=== PATIENT | female | born 1985 | race Caucasian/White ===

== ENCOUNTER 2024-11-15 19:13 | Outpatient (CLI) | payer OTHER, SELFPAY | END 2024-11-15 19:14 | disposition home or self-care (01) | LOC: NFLDREF 11-16 11:47 | PROVIDERS: PCP Nurse Practitioner; Visit Provider Nurse Practitioner | DX: R30.0 Dysuria (principal); N30.01 Acute cystitis with hematuria | CPT/HCPCS: 87086; 87186 ==

== ENCOUNTER 2024-12-20 22:23 | Emergency (ER) | payer MEDICAID, SELFPAY ==
--- OUTSIDE RECORDS SUMMARY | 2024-12-20 22:25 | XMS_ITS | Encounter Summary ---
[facility] Organization [facility] Address [address], [place] [address] Care Team Providers Care Contractor General Building Name Role Phone Javed Fishman MD Primary Care Provider +1- [phone] Encounter Details Date Type Department Care Team (Late st Contact Info) Description 12/10/2024 Notes/Orders Specialty Center 3931 General Surgery [address] [facility] [address] [place], [place] [address] Mj Min MD [address] [place] [address] Lymphadenopathy (Primary Dx) Social History Tobacco Use Types Packs/Day Years Used Date Smoking Tobacco: Every Day Cigarettes 1 16 Smokeless Tobacco: Never Comments:Smoking History Pac ks/day: Alcohol Use Standard Drinks/Week Comments No 0 (1 standard drink = 0.6 oz pure alcohol) Alcoholic Drinks/day: Amount:1-2 drinks; Freq:2-4/Month ; PHQ-2 Answer Date Recorded PHQ-2 Score 6 09/24/2023 Depression Answer Date Recor ded Last EPDS Total Score 17 06/03/2020 Last EPDS Self Harm Result 0-->never 06/03 Sex and Gender Information Value Date Recorded Sex Assigned at Female 07/24/2021 8:12 PM CDT Gender Identity Female 07/24/2021 8:12 PM CDT Sexual Orientation Straight 08/15/2021 5: 24 PM CDT documented as of this encounter Plan of Treatment Scheduled Orders Name Type Priority Associated Diagnoses Orde r Schedule Test (Urine) Lab Routine Lymphadenopathy Expected: 12/10/2024, Expires: 03/10/2025 documented as of this encounter Visit Diagnoses Diagnosis Lymphadenopathy- Primary Enlargement of lymph nodes documented in this encounter Care Teams Contractor General Building Relationship Specialty [place] [address] [place] [address] PCP - General Family Practice 05/02/23 documented as of this encounter
--- OUTSIDE RECORDS SUMMARY | 2024-12-20 22:25 | XMS_ITS | Encounter Summary ---
Author Organization [facility] Address [address], [place] [address] Care Team Providers Care Freedom Of Information Officer Name Role Phone Javed Fishman MD Primary Care Provider +1- [phone] Reason for Visit * Reason Comments RESULTS, TEST Encounter Details Date Type Department Care Team (Late st Contact Info) Description 12/13/2024 Telephone Specialty Center 3931 General Surgery [address] [facility] [address] [place], [place] [address] Lisseth Robins, RN RESULTS, TEST Social History Tobacco Use Types Packs/Day Years [...] PM CDT documented as of this encounter Nursing Notes * Lisseth Robins, RN - 12/13/2024 3:35 PM CST Patient calling back to discuss ultrasound results. States received a VM that Dr Min would tryto call her back. Please call @ [phone] MAKER documented in this encounter Plan of Treatment Not on file documented as of this encounter Visit Diagnoses Not on filedocumented in this encounter Care Teams Freedom Of Information Officer Relationship Specialty [place] [address] [place] [address] PCP - General Family Practice 05/02/23 documented as of this encounter
--- OUTSIDE RECORDS SUMMARY | 2024-12-20 22:25 | XMS_ITS | Encounter Summary ---
Author Organization [facility] Address [address] [address] Care Team Providers Care External Grinder Tender Name Role Phone Javed Fishman MD Primary Care Provider +1- [phone] Reason for Referral * Procedure/Equipment (Routine) - Incomplete Specialty Diagnoses / Procedures Referred By Contac t Referred To Contact Diagnoses Rectal bleeding Procedures CT Abd Pelvis W IV Cont Mj Min MD [address] [place] [address] Referral ID Status Reason Start Date Expiration Date V isits Requested Visits Authorized [id number] Incomplete 12/14/2024 03/15/2026 1 1 L ENGINEERING TECHNICIAN Encounter Details Date Type Department Care Team (Late st Contact Info) Description 12/14/2024 Notes/Orders Specialty Center 3931 General Surgery [address] [place] [address] [address] [place], [place] [address] Mj Min MD [address] [place], [place] [id number] Rectal bleeding (Primary Dx) Social History Tobacco Use Types [...] as of this encounter Plan of Treatment Not on file documented as of this encounter Results * Carcinoembryonic Antigen (CEA Blood) (12/15/2024 3:38 PM CIVIL ENGINEERING TECHNICIAN) Carcinoembryonic Antigen 2.3 0.0 - 5.0 ng/mL 12/15/2024 9:30 PM CIVIL ENGINEERING TECHNICIAN [facility] Blood Venipuncture / Unknown 12/15/2024 3:38 PM CIVIL ENGINEERING TECHNICIAN 12/15/2024 4:10 PM CIVIL ENGINEERING TECHNICIAN Narrative [facility] - 12/15/2024 9:30 PM CIVIL ENGINEERING TECHNICIAN [employer] CEA Chemiluminescent immunoassay is used. Results obtained with different test methods or kits cannot be used interchangeably. Mj Min MD LAB_1 [facility] [address] [place], [place] [address] [[email or web address]] * Cancer Antigen-GI (CA19-9) (12/15/2024 3:38 PM CIVIL ENGINEERING TECHNICIAN) Carbohydrate Ag 19-9 22 0 - 35 U/mL 12/16/2024 10:28 AM CIVIL ENGINEERING TECHNICIAN [facility] Blood Venipuncture / Unknown 12/15/2024 3:38 PM CIVIL ENGINEERING TECHNICIAN 12/15/2024 4:10 PM CIVIL ENGINEERING TECHNICIAN Narrative [facility] - 12/16/2024 10:28 AM CIVIL ENGINEERING TECHNICIAN This assay has been shown to have interference from high levels of biotin. Specimens from patients who are undergoing biotin therapy and/or ingesting biotin supplements may contain high levels of biotin which may cause falsely low results. Interpret the results in light of the total clinical presentation of the patient. The [employer] CA199 Chemiluminescent immunoassay is used. Results obtained with different methods or kits cannot be used interchangeably Mj Min MD LAB_1 [facility] [address] * CA 125 (Carbohydrate Antigen 125) (12/15/2024 3:38 PM CIVIL ENGINEERING TECHNICIAN) Cancer Antigen 125 24 0 - 35 U/mL 12/15/2024 9:31 PM CIVIL ENGINEERING TECHNICIAN [facility] Blood Venipuncture / Unknown 12/15/2024 3:38 PM CIVIL ENGINEERING TECHNICIAN 12/15/2024 4:10 PM CIVIL ENGINEERING TECHNICIAN Narrative [facility] - 12/15/2024 9:31 PM CIVIL ENGINEERING TECHNICIAN [employer] CA125 Chemiluminescent assay is used. Results obtained with different test methods or kits cannot be used interchangeably. Mj Min MD LAB_1 [facility] [address] * CT Abd Pelvis W IV Cont (12/14/2024 7:08 PM CIVIL ENGINEERING TECHNICIAN) Anatomical Region Laterality Modality Abdomen, Pelvis Computed Tomogra phy 12/14/2024 7:07 PM CIVIL ENGINEERING TECHNICIAN Impressions 12/15/2024 8:07 AM CIVIL ENGINEERING TECHNICIAN 1. Bilateral necrotic inguinal adenopathy, right greater than left. Findings are suspicious for metastatic disease. 2. Possible polypoid enhancing lesion of the anterior rectum. Recommend correlation with physical exam/sigmoidoscopy. Perirectal nodularity is concerning for lymphadenopathy. 3. Solitary right kidney noted. Narrative 12/15/2024 8:07 AM CIVIL ENGINEERING TECHNICIAN COMPARISON: None TECHNIQUE: Images were obtained through the abdomen and pelvis following the administration of 75 mL IOHEXOL 350 MG/ML IV SOLN IV contrast. FINDINGS: LOWER CHEST: Unremarkable. LIVER: Unremarkable. GALLBLADDER AND BILIARY TREE: Unremarkable. No intrahepatic or extrahepatic biliary ductal dilation. PANCREAS: Unremarkable. SPLEEN: Unremarkable. ADRENALS: Unremarkable. KIDNEYS, URETERS, AND BLADDER: Solitary right kidney. No hydronephrosis, nephrolithiasis or parenchymal abnormality evident. VESSELS: Unremarkable BOWEL: Unremarkable. No inflammatory changes or obstruction. Moderate stool burden throughout the colon. Hyperdense/enhancing polypoid structure in the anterior rectum, series 3 image 79, measures 1.7 x 4.1 x 3.1 cm. There are enhancing perirectal nodules which may represent lymph nodes, or vessels, most notably on the right on series 3 image 77 measuring 8 mm and on the left on image 72 measuring 11 mm. REPRODUCTIVE ORGANS: Unremarkable. MESENTERY/PERITONEUM: No enlarged mesenteric lymph nodes. No ascites or free air. No focal fluid collection. RETROPERITONEUM: No adenopathy. ABDOMINAL WALL/SOFT TISSUES: Necrotic bilateral inguinal adenopathy, right greater than left. Right inguinal node measures 6.6 x 4.0 x 5.0 cm. Adjacent smaller nodes on the right. Necrotic left inguinal node measures 1.3 cm. BONES: Unremarkable. Procedure Note Tremayne Mason MD - 12/15/2024 COMPARISON: None TECHNIQUE: Images were obtained through the abdomen and pelvis followingthe administration of 75 mL IOHEXOL 350 MG/ML IV SOLN IV contrast. FINDINGS: LOWER CHEST: Unremarkable. LIVER: Unremarkable. GALLBLADDER AND BILIARY TREE: Unremarkable. No intrahepatic orextrahepatic biliary ductal dilation. PANCREAS: Unremarkable. SPLEEN: Unremarkable. ADRENALS: Unremarkable. KIDNEYS, URETERS, AND BLADDER: Solitary right kidney. No hydronephrosis,nephrolithiasis or parenchymal abnormality evident. VESSELS: Unremarkable BOWEL: Unremarkable. No inflammatory changes or obstruction. Moderatestool burden throughout the colon. Hyperdense/enhancing polypoid structurein the anterior rectum, series 3 image 79, measures 1.7 x 4.1 x 3.1 cm.There are enhancing perirectal nodules which may represent lymph nodes, orvessels, most notably on the right on series 3 image 77 measuring 8 mm andon the left on image 72 measuring 11 mm. REPRODUCTIVE ORGANS: Unremarkable. MESENTERY/PERITONEUM: No enlarged mesenteric lymph nodes. No ascites orfree air. No focal fluid collection. RETROPERITONEUM: No adenopathy. ABDOMINAL WALL/SOFT TISSUES: Necrotic bilateral inguinal adenopathy, rightgreater than left. Right inguinal node measures 6.6 x 4.0 x 5.0 cm.Adjacent smaller nodes on the right. Necrotic left inguinal node measures1.3 cm. BONES: Unremarkable. IMPRESSION 1. Bilateral necrotic inguinal adenopathy, right greater than left.Findings are suspicious for metastatic disease. 2. Possible polypoid enhancing lesion of the anterior rectum. Recommendcorrelation with physical exam/sigmoidoscopy. Perirectal nodularity isconcerning for lymphadenopathy. 3. Solitary right kidney noted. Mj Min MD RAD CT documented in this encounter Visit Diagnoses Diagnosis Rectal bleeding- Primary Hemorrhage of rectum and anus Rectal bleeding Hemorrhage of rectum and anus documented in this encounter Care Teams External Grinder Tender Relationship Specialty [place] [address] [place] [address] PCP - General Family Practice 05/02/23 documented as of this encounter
--- OUTSIDE RECORDS SUMMARY | 2024-12-20 22:25 | XMS_ITS | Encounter Summary ---
Author Organization [facility] Address [address], [place] [address] Care Team Providers Care Head Of Operation And Logistics Name Role Phone Javed Fishman MD Primary Care Provider +1- [phone] Reason for Referral * Consult/Transfer Care (Routine) - New Request Specialty Diagnoses / Procedures Referred By Contac t Referred To Contact Diagnoses Lymph node enlargement Chalino Alicia MD [address] [place] [address] Referral ID Status Reason Start Date Expiration Date V isits Requested Visits Authorized [id number] New Request 11/29/2024 02/28/2026 1 1 Scheduling Instructions Your clinician has recommended an appointment with [facility]. You can quickly make your appointment online at [facility]/schedule. You can also call [phone] for help scheduling your appointment. We suggest you call your health insurance company about your coverage and benefits for this appointment. Question Answer Appointment Urgency? Within 1 Week (Urgent) CELL BATTERY TECHNICIAN Reason for Visit * Reason Comments Lump Vaginal Pain Encounter Details Date Type Department Care Team (Late st Contact Info) Description 11/29/2024 5:00 PM FUEL CELL BATTERY TECHNICIAN Office Visit [facility] [address] [facility] [address] [place] [address] Chalino Alicia MD [address] [place] [address] Lymph node enlargement Social History Tobacco Use Types Packs/Day Years [...] PM CDT documented as of this encounter Last Filed Vital Signs Vital Sign Reading Time Taken Comments Blood Pressure 102/67 11/29/2024 4:50 PM FUEL CELL BATTERY TECHNICIAN Pulse 122 11/29/2024 4:50 PM FUEL CELL BATTERY TECHNICIAN Temperature 37.1 C (98.8 F) 11/29/2024 4:50 PM FUEL CELL BATTERY TECHNICIAN Respiratory Rate 16 11/29/2024 4:50 PM FUEL CELL BATTERY TECHNICIAN Oxygen Saturation 100% 11/29/2024 4:50 PM FUEL CELL BATTERY TECHNICIAN Inhaled Oxygen Concentration - - Weight - - Height - - Body Mass Index - - documented in this encounter Progress Notes * Chalino Alicia MD - 11/29/2024 5:00 PM CST Patient ID: Na Lei Date of : 1985 SUBJECTIVE: Na Lei is a 39 y.o.female presents to the Urgent Care for a lump in her right groin. It has been going on for little over a month. She has not have fevers. It is getting larger and more painful. She did have a UTI about a month ago. Medications: amoxicillin-clavulanate, busPIRone, cyclobenzaprine, escitalopram oxalate, and hydrOXYzine HCl Allergies: No Known Allergies OBJECTIVE: General: Appears well in no distress. Vitals: Blood pressure 102/67, pulse (!) 122, temperature 37.1 ??C (98.8 ??F), temperature source Oral, resp. rate 16, last menstrual period 11/01/2024, SpO2 100%, not currently . HEENT: Head is normocephalic and atraumatic, EOM's intact. NECK: Full range of motion is noted. HEART: RR without murmur LUNGS: CTAB MUSCULOSKELETAL: Normal appearance range of motion appeared normal. Patient ambulated without difficulties. Genital exam: Was completed with a nurse present. She had what I believe was a very large inguinal lymph node NEURO: Cranial nerves 2-12 appear grossly intact, there are no focal deficits present. SKIN: [place] warm and dry without rashes in the hands face or neck. UC Course: I am going to put her on a course of Augmentin and since it has been going on for over a month I amgoing to have her follow up with General surgery. ASSESSMENT: The encounter diagnosis was Lymph node enlargement. PLAN: New Prescriptions AMOXICILLIN-CLAVULANATE (AUGMENTIN) 875-125 MG PER TABLET Take 1 Tablet by mouth two times a day for 10 days. Follow up with primary care physician in 3 - 5 days or sooner if symptoms worsen. May return here or go to the ER if worsening or concerns. Call here if any concerns whatsoever. CELL BATTERY TECHNICIAN documented in this encounter Nursing Notes * Michelle Osborne RN - 11/29/2024 5:00 PM CST Na Lei is a 39 y.o.female presents to the Urgent Care for Lump and Vaginal Pain Symptoms began: 1 month(s) ago. Fever: absent. Other associated symptoms: vaginal lump, painful, no drainage. Did have a UTI about a month ago. Patient requests an excuse letter for work/school: No CELL BATTERY TECHNICIAN documented in this encounter Plan of Treatment Scheduled Referrals Name Type Priority Associated Diagnoses Orde r Schedule Surgery Consult-Adults Referral Routine Lymph node enlargement Ordered: 11/29/2024 documented as of this encounter Visit Diagnoses Diagnosis Lymph node enlargement Enlargement of lymph nodes documented in this encounter Care Teams Head Of Operation And Logistics Relationship Specialty [place] [address] [place] [address] PCP - General Family Practice 05/02/23 documented as of this encounter
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
--- OUTSIDE RECORDS SUMMARY | 2024-12-20 22:25 | XMS_ITS | Encounter Summary ---
Author Organization [facility] Address [address], [place] [address] Care Team Providers Care Strategic Development Manager Name Role Phone Javed Fishman MD Primary Care Provider +1- [phone] Encounter Details Date Type Department Care Team (Late st Contact Info) Description 12/09/2024 E-Visit Endoscopy at [facility] at [address] [place] [address] Mychart, [place] [address] Social History Tobacco Use Types Packs/Day Years [...] on filedocumented in this encounter Care Teams Strategic Development Manager Relationship Specialty [place] [address] [place] [address] PCP - General Family Practice 05/02/23 documented as of this encounter
--- OUTSIDE RECORDS SUMMARY | 2024-12-20 22:25 | XMS_ITS | Encounter Summary ---
Author Organization [facility] Address [address], [place] [address] Care Team Providers Care Digital Coordinator Name Role Phone Javed Fishman MD Primary Care Provider +1- [phone] Reason for Visit * Reason Comments PAP,ROUTINE * Consult/Transfer Care (Routine) - New Request Specialty Diagnoses / Procedures Referred By Contac t Referred To Contact Diagnoses History of loop electrical excision procedure (LEEP) Mj Min MD [address] [place] [address] Referral ID Status Reason Start Date Expiration Date V isits Requested Visits Authorized [id number] New Request 12/07/2024 03/08/2026 1 1 Encounter Details Date Type Department Care Team (Latest Contact Info) Description 12/14/2024 8:20 AM CRM DEVELOPER Office Visit Obstetrics & Gynecology at [address] [address] Kay Caceres, TUNGSTEN REFINER, RN [facility] [address] [place] [address] Pelvic pain in female (Primary Dx); Screening for malignant neoplasm of cervix; Special screening examination for human papillomavirus (HPV) Social History Tobacco Use Types Packs/Day Years Used Date Smoking Tobacco: Every Day Cigarettes 1 16 Smokeless Tobacco: Never Tobacco Cessation:Ready to Q uit: Not Asked; Counseling Given: Not Answered Comments:Smoking History Packs/day: Alcohol Use Standard Drinks/Week Comments No 0 [...] Sign Reading Time Taken Comments Blood Pressure 98/65 12/14/2024 8:38 AM CRM DEVELOPER Pulse 121 12/14/2024 8:38 AM CRM DEVELOPER Temperature - - Respiratory Rate - - Oxygen Saturation - - Inhaled Oxygen Concentration - - Weight 55.8 kg (123 lb) 12/14/2024 8:38 AM CRM DEVELOPER Height - - Body Mass Index 21.11 08/27/2021 6:47 PM CDT documented in this encounter Patient Instructions * Patient Instructions* Kay Caceres APRN, CNP - 12/14/2024 8:20 AM CRM DEVELOPER To schedule CT scan of abdomen/pelvis please call [phone] to schedule your appointment. Please schedule pelvic US. DEVELOPER documented in this encounter Progress Notes * Kay Caceres APRN, CNP - 12/14/2024 8:20 AM CST Chief complaint: pelvic examination with pap screening SUBJECTIVE: 39 y.o. P2012 presents for pelvic examination with pap screening. Patient's primary concern when presenting to Urgent Care on 11/29/24 was large lump in her right groin. She had US completed on 12/09/24, which revealed 5.3 x 5.3 x 4.2 cm mixed cystic and solid mass with peripheral flow. This may represent a necrotic lymph node or other cystic mass. Consider CT imaging for further evaluation. She was advised to f/u with General Surgery who ordered CT scan of abdomen/pelvis and f/u with REGISTERED NURSE AMBULATORY as she has not had REGISTERED NURSE AMBULATORY care in years. Of note, she also reports profuse rectal bleeding, fevers, headaches, nausea, abdominal pain and constipation. Patient was given bowel regimen earlier this month, which yielded bowel movements, but now has not had stools for a couple of weeks. No appetite, last meal was [facility] last week. Patient's last menstrual period was 12/06/2024 (within days). Menses are monthly. She is not sexually active at this time. She denies concerns for STI, declines screening. Last pap 10/2018 ASCUS HPV+16, s/p negative colposcopy and ECC 2018. Was advised pap in 1 year, but did not follow-up. OBJECTIVE: BP 98/65 (BP Location: Left Arm, BP Cuff Size: Small Adult/Large Pediatrics) Pulse (!) 121 Wt 123 lb (55.8 kg) LMP 12/06/2024 (Within Days) BMI 21.11 kg/m?? General: alert and oriented x 3 NAD. Appears ill Psych: normal affect Respiratory: breathing comfortably on room air Pelvic: emulsification operator present. Normal appearing external genitalia with exception of 3-4 cm tender massin her right groin. Normal appearing vagina without bleeding or discharge. Normal appearing cervix without visible lesions or masses. Pap updated. Negative CMT. Normal bimanual, without uterine tenderness or enlargement. No adnexal masses or tenderness. Rectum with large mass palpated on bimanual, unsure if this is stool burden or rectal mass. Deferred rectal examination given her reported pain. ASSESSMENT: 39 y.o. P2012 presents for pelvic examination with pap screening. PLAN: -Pelvic examination with pap screening: pap updated as she is overdue. Large mass palpated on bimanual examination. Will obtain pelvic US given pain in her pelvis. Strongly advised to schedule CT abdomen/pelvis as previously advised. Advised to proceed with EGD/colonoscopy as scheduled. Encouraged to present to lab for UPT, CMP and CBC per General Surgery. Will f/u once labs/US completed Kay Caceres APRN, CNP 12/14/2024, 9:15 AM DEVELOPER documented in this encounter Plan of Treatment Pending Results Name Type Priority Associated Diagnoses Date /Time PAP Test Lab Routine Screening for malignant neoplasm of cervix 12/14/2024 2:06 PM CRM DEVELOPER HPV Genotyping PCR (Cervical/Endocervic al ONLY) Microbiology Routine Special screening examination for human papillomavirus (HPV) 12/14/2024 2:06 PM CRM DEVELOPER documented as of this encounter Visit Diagnoses Diagnosis Pelvic pain in female- Primary Unspecified symptom associated with female genital organs Screening for malignant neoplasm of cervix Screening for malignant neoplasm of the cervix Special screening examination for human papillomavirus (HPV) documented in this encounter Care Teams Digital Coordinator Relationship Specialty [place] [address] [place] [address] PCP - General Family Practice 05/02/23 documented as of this encounter
--- OUTSIDE RECORDS SUMMARY | 2024-12-20 22:26 | XMS_ITS | Encounter Summary ---
[facility] Organization [facility] Address [address] [place] [address] Care Team Providers Care Channel Rougher Name Role Phone Javed Fishman MD Primary Care Provider +1- [phone] Encounter Details Date Type Department Care Team (Late st Contact Info) Description 12/15/2024 3:45 PM SUPERVISOR [employer]SE Lab Visit [facility] [address] [place] [address] Rectal bleeding; Lymphadenopathy Social History Tobacco Use Types Packs/Day [...] on file documented as of this encounter Procedures Procedure Name Priority Date/Time Associated Diagnosis Comments COMPREHENSIVE METABOLIC PANEL Routine 12/15/2024 3:54 PM [employer] Lymphadenopathy CANCER ANTIGEN-GI (CA 19-9) Routine 12/15/2024 3:38 PM [employer] Rectal bleeding HIV 1/2 AG/AB 4TH GEN Routine 12/15/2024 3:38 PM [employer] Rectal bleeding CA-125 (CARBOHYDRATE AG 125) STAT 12/15/2024 3:38 PM [employer] Rectal bleeding CARCINOEMBRYONIC ANTIGEN (CEA) Routine 12/15/2024 3:38 PM [employer] Rectal bleeding documented in this encounter Results * (ABNORMAL) Comp Metabolic Panel (12/15/2024 3:54 PM [employer]) Sodium 139 136 - 145 mmol/L 12/15/2024 4:49 PM [facility] Potassium 3.6 3.5 - 5.1 mmol/L 12/15/2024 4:49 PM [facility] Chloride 105 98 - 109 mmol/L 12/15/2024 4:49 PM [facility] CO2 26 20 - 29 mmol/L 12/15/2024 4:49 PM [facility] Anion Gap 8 6 - 16 mmol/L 12/15/2024 4:49 PM [facility] Calcium 8.4 8.4 - 10.4 mg/dL 12/15/2024 4:49 PM [facility] BUN 9 7 - 26 mg/dL 12/15/2024 4:49 PM [facility] Creatinine 0.56 0.55 - 1.02 mg/dL 12/15/2024 4:49 PM [facility] Alkaline Phosphatase 292(H) 40 - 150 U/L 12/15/2024 4:49 PM [facility] AST (SGOT) 53(H) 10 - 40 U/L 12/15/2024 4:49 PM [facility] ALT (SGPT) 46 0 - 55 U/L 12/15/2024 4:49 PM [facility] Bilirubin, Total 0.3 0.2 - 1.2 mg/dL 12/15/2024 4:49 PM [facility] Protein, Total 6.9 6.4 - 8.3 g/dL 12/15/2024 4:49 PM [facility] Albumin 2.1(L) 3.5 - 5.0 g/dL 12/15/2024 4:49 PM [facility] Glucose 103(H) 70 - 100 mg/dL 12/15/2024 4:49 PM [facility] Comment:The given reference range is for the fasting state. Non-fasting reference range for glucose is 70 - 180 mg/dL. GFR, Estimated >60 >60 mL/min/1.7 3m2 12/15/2024 4:49 PM [facility] Hours Fasting 0.1 8 - 12 Hours 12/15/2024 4:49 PM [facility] Comment:Lab unable to obtain patient's fasting status at time of specimen collection. Blood Venipuncture / Unknown 12/15/2024 3:54 PM [employer] 12/15/2024 3:54 PM [employer] Mj Min MD LAB_1 Performing Organization Address City/State/[facility] Co de Phone Number [facility] [address] [place] [address] * HIV 1/2 Ag/Ab 4th Generation (12/15/2024 3:38 PM [employer]) HIV 1/2 Antigen/Antib michele (4th generation) Negative (Non Reactive) Negative (Non Reactive) 12/15/2024 8:50 PM [employer] [facility] Comment:HIV-1 p24 Antigen an d HIV-1/HIV-2 Antibody not detected Blood Venipuncture / Unknown 12/15/2024 3:38 PM [employer] 12/15/2024 4:10 PM [employer] Mj Min MD LAB_1 Performing Organization Address [facility] de Phone Number [facility] [address] * Carcinoembryonic Antigen (CEA Blood) (12/15/2024 3:38 PM [employer]) Carcinoembryonic Antigen 2.3 0.0 - 5.0 ng/mL 12/15/2024 9:30 PM [employer] [facility] Blood Venipuncture / Unknown 12/15/2024 3:38 PM [employer] 12/15/2024 4:10 PM [employer] [facility] - 12/15/2024 9:30 PM [employer] CEA Chemiluminescent immunoassay is used. Results obtained with different test methods or kits cannot be used interchangeably. Mj Min MD LAB_1 Performing Organization Address [facility] Phone Number [facility] [address] * Cancer Antigen-GI (CA19-9) (12/15/2024 3:38 PM [employer]) Carbohydrate Ag 19-9 22 0 - 35 U/mL 12/16/2024 10:28 AM [employer] [facility] Blood Venipuncture / Unknown 12/15/2024 3:38 PM [employer] 12/15/2024 4:10 PM [employer] [facility] - 12/16/2024 10:28 AM [employer] This assay has been shown to have interference from high levels of biotin. Specimens from patients who are undergoing biotin therapy and/or ingesting biotin supplements may contain high levels of biotin which may cause falsely low results. Interpret the results in light of the total clinical presentation of the patient. The [employer] CA199 Chemiluminescent immunoassay is used. Results obtained with different methods or kits cannot be used interchangeably Mj iMn MD LAB_1 Performing Organization Address [facility] Co de Phone Number [facility] [address] * CA 125 (Carbohydrate Antigen 125) (12/15/2024 3:38 PM [employer]) Cancer Antigen 125 24 0 - 35 U/mL 12/15/2024 9:31 PM [employer] [facility] Blood Venipuncture / Unknown 12/15/2024 3:38 PM [employer] 12/15/2024 4:10 PM [employer] Narrative [facility] - 12/15/2024 9:31 PM [employer] CA125 Chemiluminescent assay is used. Results obtained with different test methods or kits cannot be used interchangeably. Mj Min MD LAB_1 [facility] [address] [place], [place] [address] documented in this encounter Visit Diagnoses Diagnosis Rectal bleeding Hemorrhage of rectum and anus Lymphadenopathy Enlargement of lymph nodes documented in this encounter Care Teams Channel Rougher Relationship Specialty [place] [address] [place] [address] PCP - General Family Practice 05/02/23 documented as of this encounter
--- OUTSIDE RECORDS SUMMARY | 2024-12-20 22:26 | XMS_ITS | Encounter Summary ---
Author Organization [facility] Address [address], [place] [address] Care Team Providers Care Operator Coating Furnace Name Role Phone Javed Fishman MD Primary Care Provider +1- [phone] Reason for Visit * Reason Comments Forms/Letter Entered automaticall y based on patient selection in [facility]. Encounter Details Date Type Department Care Team (Late st Contact Info) Description 12/14/2024 3:50 PM COMMUNICATION CENTER OPERATOR [facility] [address] General Surgery [address] [facility] [address] [place] [address] Mj Min MD [address] [place], [place] [address] Chief Comp: Forms/Letter Social History Tobacco Use Types Packs/Day Years [...] on filedocumented in this encounter Care Teams Operator Coating Furnace Relationship Specialty [place] [address] [place] [address] PCP - General Family Practice 05/02/23 documented as of this encounter
--- OUTSIDE RECORDS SUMMARY | 2024-12-20 22:26 | XMS_ITS | Encounter Summary ---
Author Organization [facility] Address [address], [place] [address] Care Team Providers Care Transmission And Protection Engineer Name Role Phone Javed Fishman MD Primary Care Provider +1- [phone] Reason for Referral * Procedure/Equipment (Routine) - Incomplete Specialty Diagnoses / Procedures Referred By Contac t Referred To Contact Diagnoses Lymphadenopathy Procedures US Bx Lymph Node Inguin Rt US Bx Lymph Node IR Bx Lymph Node Mj Min MD [address] [place] [address] Referral ID Status Reason Start Date Expiration Date V isits Requested Visits Authorized [id number] Incomplete 12/15/2024 03/16/2026 1 1 [employer]IALS INTERN Encounter Details Date Type Department Care Team (Late st Contact Info) Description 12/15/2024 Notes/Orders [facility] Surgeon Non-Employed [address] [place] [address] Mj Min MD [address] [place], [place] [address] Lymphadenopathy (Primary Dx); Rectal bleeding Social History Tobacco Use Types Packs/Day Years [...] Type Priority Associated Diagnoses Orde r Schedule US Bx Lymph Node Inguin Rt Imaging New Routine Lymphadenopathy Expected: 12/15/2024 (Approximate), Expires: 12/15/2025 documented as of this encounter Visit Diagnoses Diagnosis Lymphadenopathy- Primary Enlargement of lymph nodes Rectal bleeding Hemorrhage of rectum and anus documented in this encounter Care Teams Transmission And Protection Engineer Relationship Specialty [place] [address] [place] [address] PCP - General Family Practice 05/02/23 documented as of this encounter
--- OUTSIDE RECORDS SUMMARY | 2024-12-20 22:26 | XMS_ITS | Encounter Summary ---
Author Organization [facility] Address [address], [place] [address] Care Team Providers Care Greenhouse Manager Name Role Phone Javed Fishman MD Primary Care Provider +1- [phone] Reason for Referral * Procedure/Equipment (Routine) - New Request Specialty Diagnoses / Procedures Referred By Contac t Referred To Contact Diagnoses Rectal mass Hematochezia Procedures Colonoscopy Diagnostic Librado Ferrer MD [address] [place] [address] Referral ID Status Reason Start Date Expiration Date V isits Requested Visits Authorized [id number] New Request 02/12/2025 12/15/2026 1 1 [facility] LIFE Reason for Visit * Reason Comments RESULTS, TEST CT scan, discussion regarding procedure for tomorrow Encounter Details Date Type Department Care Team (Late st Contact Info) Description 12/15/2024 Telephone Digestive Care at [facility] [address] [facility] [place] [address] Librado Ferrer MD [address] [place] [phone] RESULTS, TEST (CT scan, discussion regarding procedure for tomorrow) Social History Tobacco Use Types Packs/Day Years [...] as of this encounter Nursing Notes * Librado Ferrer MD - 12/15/2024 4:24 PM CST Brief GI Mold Filler And Drainer Note: 12/15/2024 Chart extensively reviewed, discussed case with Dr. Min who saw patient in General Surgery clinic on 12/07/24. Please see his documentation for details. CT scan reviewed, highly suspicious for locally advanced and possible metastatic rectal malignancy.Patient has had groin swelling and hematochezia for some time. I was contacted to expedited a lower endoscopic evaluation. I called Ms. Lei and explained my concerning for rectal malignancy and how important it was to obtain a tissue diagnosis. She is agreeable to a 10:40 a.m. colonoscopy tomorrow at [facility]6500. This has been confirmed with the GI endoscopy charge nurse. I described the rationale for the procedure, the time to arrive and NPO instructions. Will sent bowel prep to her pharmacy. Best case scenario, a complete colonoscopy can be attempted, but if prep is insufficient given the short time frame at least we could obtain a rapid tissue diagnosis given how distal the mass is. Groin U/S with biopsy to targeted a necrotic lymph node has been ordered by Dr. Min. This willlikely provide staging information. GI remains available. Librado Ferrer MD Department of Gastroenterology [facility] documented in this encounter Plan of Treatment Not on file documented as of this encounter Results * Colonoscopy Diagnostic (12/16/2024 10:21 AM DIRECTOR LIFE) Anatomical Region Laterality Modality Other 12/16/2024 10:2 1 AM DIRECTOR LIFE Narrative 12/16/2024 10:21 AM DIRECTOR LIFE Patient Name: Na Lei Procedure Date: 12/16/2024 10:21 AM Date of : 1985 Admit Type: Outpatient Age: 39 Gender: Female Note Status: Finalized Attending MD: Sami Shane MD, Procedure: Colonoscopy Indications: Suspected rectal cancer, Abnormal CT of the GI tract Providers: Sami Shane MD, Jazzmine Helton, RN Referring MD: Librado Ferrer Medicines: Fentanyl 125 micrograms IV, Midazolam 5 mg IV Complications: No immediate complications. Procedure: After I obtained informed consent, the scope was passed under direct vision. Throughout the procedure, the patient's blood pressure, pulse, and oxygen saturations were monitored continuously. The [id number] was introduced through the anus and advanced to the terminal ileum, with identification of the appendiceal orifice and IC valve. After I obtained informed consent, the scope was passed under direct vision. Throughout the procedure, the patient's blood pressure, pulse, and oxygen saturations were monitored continuously.The colonoscopy was performed without difficulty. The patient tolerated the procedure well. The quality of the bowel preparation was good. The terminal ileum, the ileocecal valve, the appendiceal orifice and the rectum were photographed. Findings: The digital rectal exam revealed a firm rectal mass. The perianal examination was normal. The terminal ileum appeared normal. An ulcerated partially obstructing large mass was found in the distal rectum. The mass was partially circumferential. Biopsies were taken with a cold forceps for histology. No additional abnormalities were found on retroflexion. The exam was otherwise without abnormality. Moderate Sedation: Moderate (conscious) sedation was administered by the nurse and supervised by the endoscopist. The patient's oxygen saturation, heart rate, blood pressure and response to care were monitored. Total physician intraservice time was 30 minutes. This time is the duration from the initial medication administration until the bisque finisher assists with initial maneuvers (biopsy / polypectomy / etc.), or if no maneuvers are performed, until the endoscopist leaves the room. Impression: - The examined portion of the ileum was normal. - Likely malignant partially obstructing tumor in the distal rectum. Biopsied. - The examination was otherwise normal. Recommendation: - Await pathology results. - Refer to a colo-rectal surgeon at the next available appointment. - Proceed with CT chest/abdomen/pelvis with IV contrast for staging purposes. - First degree relatives (siblings, children) should have an index screening colonoscopy at age 28 and repeated every 5 years thereafter. - Resume previous diet today. - Continue present medications. - Thanks for the kind referral. Procedure Code(s): --- Professional --- 81046, Colonoscopy, flexible; with biopsy, single or multiple G0500, Moderate sedation services provided by the same physician or other qualified health adult live in caregiver performing a gastrointestinal endoscopic service that sedation supports, requiring the presence of an independent trained observer to assist in the monitoring of the patient's level of consciousness and physiological status; initial 15 minutes of intra-service time; patient age 5 years or older (additional time may be reported with 25184, as appropriate) [address], Moderate sedation; each additional 15 minutes intraservice time Diagnosis Code(s): --- Professional --- K62.89, Other specified diseases of anus and rectum D49.0, Neoplasm of unspecified behavior of digestive system K56.690, Other partial intestinal obstruction R93.3, Abnormal findings on diagnostic imaging of other parts of digestive tract CPT copyright 2022 [employer]. All rights reserved. The codes documented in this report are preliminary and upon top edge beveler review may be revised to meet current compliance requirements. Sami Shane MD 12/16/2024 11:43:03 AM Number of Addenda: 0 Note Initiated On: 12/16/2024 10:21 AM Endoscopy Report Procedure Note Sami Shane MD - 12/16/2024 Patient Name: Na Lei Procedure Date: 12/16/2024 10:21 AM Date of : 1985 Admit Type: Outpatient Age: 39 Gender: Female Note Status: Finalized Attending MD: Sami Shane MD, Procedure: Colonoscopy Indications: Suspected rectal cancer, Abnormal CT of the GI tract Providers: Sami Shane MD, Jazzmine Helton RN Referring MD: Librado Ferrer Medicines: Fentanyl 125 micrograms IV, Midazolam 5 mg IV Complications: No immediate complications. Procedure: After I obtained informed consent, the scope was passed under direct vision. Throughout the procedure, the patient's blood pressure, pulse, and oxygen saturations were monitored continuously. The [id number] was introduced through the anus and advanced to the terminal ileum, with identification of the appendiceal orifice and IC valve. After I obtained informed consent, the scope was passed under direct vision. Throughout the procedure, the patient's blood pressure, pulse, and oxygen saturations were monitored continuously.The colonoscopy was performed without difficulty. The patient tolerated the procedure well. The quality of the bowel preparation was good. The terminal ileum, the ileocecal valve, the appendiceal orifice and the rectum were photographed. Findings: The digital rectal exam revealed a firm rectal mass. The perianal examination was normal. The terminal ileum appeared normal. An ulcerated partially obstructing large mass was found in the distal rectum. The mass was partially circumferential. Biopsies were taken with a cold forceps for histology. No additional abnormalities were found on retroflexion. The exam was otherwise without abnormality. Moderate Sedation: Moderate (conscious) sedation was administered by the nurse and supervised by the endoscopist. The patient's oxygen saturation, heart rate, blood pressure and response to care were monitored. Total physician intraservice time was 30 minutes. This time is the duration from the initial medication administration until the bisque finisher assists with initial maneuvers (biopsy / polypectomy / etc.), or if no maneuvers are performed, until the endoscopist leaves the room. Impression: - The examined portion of the ileum was normal. - Likely malignant partially obstructing tumor in the distal rectum. Biopsied. - The examination was otherwise normal. Recommendation: - Await pathology results. - Refer to a colo-rectal surgeon at the next available appointment. - Proceed with CT chest/abdomen/pelvis with IV contrast for staging purposes. - First degree relatives (siblings, children) should have an index screening colonoscopy at age 28 and repeated every 5 years thereafter. - Resume previous diet today. - Continue present medications. - Thanks for the kind referral. Procedure Code(s): --- Professional --- 82602, Colonoscopy, flexible; with biopsy, single or multiple G0500, Moderate sedation services provided by the same physician or other qualified health adult live in caregiver performing a gastrointestinal endoscopic service that sedation supports, requiring the presence of an independent trained observer to assist in the monitoring of the patient's level of consciousness and physiological status; initial 15 minutes of intra-service time; patient age 5 years or older (additional time may be reported with 56911, as appropriate) [address], Moderate sedation; each additional 15 minutes intraservice time Diagnosis Code(s): --- Professional --- K62.89, Other specified diseases of anus and rectum D49.0, Neoplasm of unspecified behavior of digestive system K56.690, Other partial intestinal obstruction R93.3, Abnormal findings on diagnostic imaging of other parts of digestive tract CPT copyright 2022 [employer]. All rights reserved. The codes documented in this report are preliminary and upon top edge beveler review may be revised to meet current compliance requirements. Sami Shane MD 12/16/2024 11:43:03 AM Number of Addenda: 0 Note Initiated On: 12/16/2024 10:21 AM Endoscopy Report Librado Ferrer MD ET GI PROCEDURE KEESHA RUIZ documented in this encounter Visit Diagnoses Diagnosis Rectal mass- Primary Other symptoms involving digestive system Hematochezia Blood in stool Rectal bleeding- Primary Hemorrhage of rectum and anus Rectal mass Other symptoms involving digestive system Hematochezia Blood in stool documented in this encounter Care Teams Greenhouse Manager Relationship Specialty [place] [address] [place] [address] PCP - General Family Practice 05/02/23 documented as of this encounter
--- OUTSIDE RECORDS SUMMARY | 2024-12-20 22:26 | XMS_ITS | Encounter Summary ---
Author Organization [facility] Address [address], [place] [address] Care Team Providers Care Global Ceo Name Role Phone Javed Fishman MD Primary Care Provider +1- [phone] Reason for Referral * Consult/Transfer Care (Routine) - New Request Specialty Diagnoses / Procedures Referred By Contac t Referred To Contact Diagnoses Rectal cancer ([facility]C) Sami Shane MD [address] [place] [address] Referral ID Status Reason Start Date Expiration Date V isits Requested Visits Authorized [id number] New Request 12/16/2024 03/17/2026 1 1 Scheduling Instructions Your clinician has recommended an appointment with [facility]. You can quickly make your appointment online at [employer]/schedule. You can also call [phone] for help scheduling your appointment. We suggest you call your health insurance company about your coverage and benefits for this appointment. Question Answer Appointment Urgency? Non-Urgent Reason for visit? New diagnosis of rectal cancer X ADMIN * Procedure/Equipment (Routine) - Incomplete Specialty Diagnoses / Procedures Referred By Renan harvey Referred To Contact Diagnoses Rectal cancer (HRC) Procedures CT Chest Abd Pelvis W IV Cont Sami Shane MD [facility] [place] [address] Referral ID Status Reason Start Date Expiration Date V isits Requested Visits Authorized [id number] Incomplete 12/16/2024 03/17/2026 1 1 X ADMIN Encounter Details Date Type Department Care Team (Late st Contact Info) Description 12/15/2024 E-Visit Digestive Care at [facility] at [address] [place] [address] Librado Ferrer MD [address] [place] [phone] Dx: Rectal cancer (HRC) (Primary Dx) Social History Tobacco Use Types [...] as of this encounter Nursing Notes * Sami Shane MD - 12/16/2024 11:39 AM CST Referral due to new diagnosis of rectal cancer. X ADMIN documented in this encounter Plan of Treatment Scheduled Orders Name Type Priority Associated Diagnoses Orde r Schedule CT Chest Abd Pelvis W IV Cont Imaging New Routine Rectal cancer (HRC) Expected: 12/16/2024 (Approximate), Expires: 12/16/2025 Scheduled Referrals Name Type Priority Associated Diagnoses Orde r Schedule Colorectal Surgery Consult-Adults Referral Routine Rectal cancer (HRC) Ordered: 12/16/2024 documented as of this encounter Visit Diagnoses Diagnosis Rectal cancer (HRC)- Primary Malignant neoplasm of rectum documented in this encounter Care Teams Global Ceo Relationship Specialty [place] [address] [place] [address] PCP - General Family Practice 05/02/23 documented as of this encounter
--- OUTSIDE RECORDS SUMMARY | 2024-12-20 22:26 | XMS_ITS | Encounter Summary ---
Author Organization [facility] Address [address], [place] [address] Care Team Providers Care Manager Clinical Informatics Name Role Phone Javed Fishman MD Primary Care Provider +1- [phone] Reason for Visit * Procedure/Equipment (Routine) - Incomplete Specialty Diagnoses / Procedures Referred By Contac t Referred To Contact Diagnoses Pelvic pain in female Procedures US Pelvic Complete WO EV US Pelvic Complete W EV OBGYN Pelvic/Cnc Maintenance Mechanic Ultrasound Kay Caceres, MAGNETIC TAPE WINDER, SWIMMING POOL SERVICE TECHNICIAN [address] [place] [address] Referral ID Status Reason Start Date Expiration Date V isits Requested Visits Authorized [id number] Incomplete 12/14/2024 03/15/2026 1 1 Encounter Details Date Type Department Care Team (Latest Contact Info) Description 12/15/2024 3:00 PM DIVERSIONAL THERAPIST'S ASSISTANT Ancillary Procedure [facility] [address] Ultrasound [address] [place] [phone] Kay Caceres, MAGNETIC TAPE WINDER, SWIMMING POOL SERVICE TECHNICIAN [address] [place] [address] Pelvic pain in female Social History Tobacco Use Types Packs/Day Years [...] Procedure Name Priority Date/Time Associated Diagnosis Comments US PELVIC COMPLETE WO EV Routine 12/15/2024 3:38 PM DIVERSIONAL THERAPIST'S ASSISTANT Pelvic pain in female documented in this encounter Results * US Pelvic Complete WO EV (12/15/2024 3:38 PM DIVERSIONAL THERAPIST'S ASSISTANT) Anatomical Region Laterality Modality Pelvis Ultrasound 12/15/2024 3:00 PM DIVERSIONAL THERAPIST'S ASSISTANT Impressions 12/15/2024 3:51 PM DIVERSIONAL THERAPIST'S ASSISTANT Mass posterior to the vagina may correspond to what appears to be a mass in the anterior wall of the rectum on CT. Narrative 12/15/2024 3:51 PM DIVERSIONAL THERAPIST'S ASSISTANT COMPARISON: None TECHNIQUE: Transabdominal imaging was performed. FINDINGS: Uterus: Measures 5.1 x 3.1 x 4.2 cm. Uterine Volume: 34.8 ml. Appears unremarkable. Posterior to the vagina there is a solid appearing hypoechoic structure measuring 4.0 x 5.4 x 5.3 cm. This may correspond to the anterior wall rectal lesion seen on CT. Endometrium: Measures up to 0.3 cm in thickness. Right and left ovaries are not seen. No adnexal mass. No free fluid.. Procedure Note Burbidgkaitlin, Tremayne J, MD - 12/15/2024 COMPARISON: None TECHNIQUE: Transabdominal imaging was performed. FINDINGS: Uterus: Measures 5.1 x 3.1 x 4.2 cm. Uterine Volume: 34.8 ml. Appearsunremarkable. Posterior to the vagina there is a solid appearinghypoechoic structure measuring 4.0 x 5.4 x 5.3 cm. This may correspond tothe anterior wall rectal lesion seen on CT. Endometrium: Measures up to 0.3 cm in thickness. Right and left ovaries are not seen. No adnexal mass. No free fluid.. IMPRESSION Mass posterior to the vagina may correspond to what appears to be a massin the anterior wall of the rectum on CT. Kay Caceres MAGNETIC TAPE WINDER, SWIMMING POOL SERVICE TECHNICIAN RAD US documented in this encounter Visit Diagnoses Diagnosis Pelvic pain in female Unspecified symptom associated with female genital organs documented in this encounter Care Teams Manager Clinical Informatics Relationship Specialty [place] [address] [place] [address] PCP - General Family Practice 05/02/23 documented as of this encounter
--- OUTSIDE RECORDS SUMMARY | 2024-12-20 22:26 | XMS_ITS | Encounter Summary ---
Author Organization [facility] Address [address] [place] [address] Care Team Providers Care Roof Cement And Paint Maker Name Role Phone Javed Fishman MD Primary Care Provider +1- [phone] Reason for Visit * Reason Comments Lump Encounter Details Date Type Department Care Team (Late st Contact Info) Description 11/29/2024 Nurse Triage [facility] Medicine [id number] [place] [address]177 Javed Fishman MD [address] [place] [address] [place] [address] Lump Social History Tobacco Use Types Packs/Day Years [...] as of this encounter Nursing Notes * Carin El RN - 11/29/2024 1:59 PM CST Situation/Background (brief explanation of current symptoms/situation): Patient calling with concern of lump in inguinal area between leg and vulva. Noticed about 1 month ago, has gotten bigger sincefirst noticed. Lump looks red, hard and painful to touch, feels discomfort internally also like a pulled muscle. Denies fever, drainage. Has family hx of cancer so concerned about that. Advised per protocol, will go to today. Reviewed pertinent medical history (as relates to the call): Yes Reviewed pertinent medications (as relates to the call): Yes Reason for Disposition Swelling is painful to touch and no fever Protocols used: Skin Lump or Localized Isghujub-AKZAC-LB ER POLICE DETECTIVE documented in this encounter Plan of Treatment Not on file documented as of this encounter Visit Diagnoses Not on filedocumented in this encounter Care Teams Roof Cement And Paint Maker Relationship Specialty [place] [address] [place] [address] PCP - General Family Practice 05/02/23 documented as of this encounter
--- OUTSIDE RECORDS SUMMARY | 2024-12-20 22:26 | XMS_ITS | Encounter Summary ---
Author Organization [facility] Address [address], [place] [address] Care Team Providers Care General Magistrate Name Role Phone Javed Fishman MD Primary Care Provider +1- [phone] Encounter Details Date Type Department Care Team (Late st Contact Info) Description 12/17/2024 11:10 AM TITLE 1 TUTOR Lab Visit Specialty Center 3931 Outpatient Laboratory 3931 [place], [place] [address] Rectal bleeding Social History Tobacco Use Types [...] Procedure Name Priority Date/Time Associated Diagnosis Comments HEMOGLOBIN, BLOOD Routine 12/17/2024 10: 34 AM TITLE 1 TUTOR Rectal bleeding documented in this encounter Results * (ABNORMAL) Hemoglobin, Blood (HGB) (12/17/2024 10:34 AM TITLE 1 TUTOR) Hemoglobin 7.5(L) 12.0 - 15.5 g/dL 12/17/2024 10:51 AM TITLE 1 TUTOR [facility] Blood Venipuncture / Unknown 12/17/2024 10:34 AM TITLE 1 TUTOR 12/17/2024 10:37 AM TITLE 1 TUTOR Mikhail Nunez MD LAB_1 [facility] [address] documented in this encounter Visit Diagnoses Diagnosis Rectal bleeding Hemorrhage of rectum and anus documented in this encounter Care Teams General Magistrate Relationship Specialty [place] [address] [place] [address] PCP - General Family Practice 05/02/23 documented as of this encounter
--- OUTSIDE RECORDS SUMMARY | 2024-12-20 22:26 | XMS_ITS | Encounter Summary ---
Author Organization [facility] Address [address] [place] [address] Care Team Providers Care Caul Dresser Name Role Phone Javed Fishman MD Primary Care Provider +1- [phone] Reason for Visit * Reason Comments CHEST PAIN Encounter Details Date Type Department Care Team (Late st Contact Info) Description 12/18/2024 Nurse Triage Careline [address] [facility] [place], [place] [address] Donaldo Cooper CHEST PAIN Social History Tobacco Use Types Packs/Day Years [...] as of this encounter Nursing Notes * Rachna Carson RN - 12/18/2024 6:00 PM CST Verified patient identity: Yes Situation/Background (brief explanation of current symptoms/situation): Pt c/o chest heaviness thatshe is unable to say when it started, states that she is unable to tell if she is having shortness of breath, pain is a 5/10, pt states that she feels dizzy and lightheaded when she stands up x 1 month, had blood work done yesterday and her HgB is 7.5, new cancer diagnosis, states that the pain is constant Reviewed with patient pertinent medical history (as it related to the call): Yes Reviewed with patient pertinent medications (as they relate to call): Yes Reviewed with patient pertinent allergies (as they relate to call): N/A Reason for Disposition [1] Chest pain lasts > 5 minutes AND [2] described as crushing, pressure-like, or heavy Protocols used: Chest Alar-UAJPA-BC Plan: EMS call 911 NOW Advised patient/caller to call back CareLine if there are further questions or concerns. The CareLine is available 09/06. Pt verbalized understanding and agreed with the plan. Rachna Ayala RN Careline6:08 PM 12/18/2024 INUING EDUCATION DEAN * Donaldo Cooper - 12/18/2024 5:57 PM CST Verified patient identity using three identifiers: Yes Caller's relationship to patient: Spouse/Significant Other, Do you have a provider/clinic where you are seen for this? PN Specialty Symptoms Describe the reason for call/symptoms (include location and duration if applicable): Pt is having chest pain and SOB. Plan:Caller transferred directly to CareLine nurse. INUING EDUCATION DEAN documented in this encounter Plan of Treatment Not on file documented as of this encounter Visit Diagnoses Not on filedocumented in this encounter Care Teams Caul Dresser Relationship Specialty [place] [address] [place] [address] PCP - General Family Practice 05/02/23 documented as of this encounter
--- OUTSIDE RECORDS SUMMARY | 2024-12-20 22:26 | XMS_ITS | Encounter Summary ---
Author Organization [facility] Address [address], [place] [address] Care Team Providers Care Director Of Industrial Relations Name Role Phone Javed Fishman MD Primary Care Provider +1- [phone] Encounter Details Date Type Department Care Team (Late st Contact Info) Description 12/15/2024 Notes/Orders Specialty Center 3931 General Surgery 3931 [facility] [address] [place], [place] [id number] Mj Min MD [address] [place] [address] Rectal bleeding (Primary Dx) Social History Tobacco [...] documented as of this encounter Results * HIV 1/2 Ag/Ab 4th Generation (12/15/2024 3:38 PM INFORMATION SERVICES CONSULTANT) HIV 1/2 Antigen/Antib michele (4th generation) Negative (Non Reactive) Negative (Non Reactive) 12/15/2024 8:50 PM INFORMATION SERVICES CONSULTANT [facility] Comment:HIV-1 p24 Antigen an d HIV-1/HIV-2 Antibody not detected Blood Venipuncture / Unknown 12/15/2024 3:38 PM INFORMATION SERVICES CONSULTANT 12/15/2024 4:10 PM INFORMATION SERVICES CONSULTANT Mj Min MD LAB_1 [facility] [address] documented in this encounter Visit Diagnoses Diagnosis Rectal bleeding- Primary Hemorrhage of rectum and anus documented in this encounter Care Teams Director Of Industrial Relations Relationship Specialty [place] [address] [place] Hernandez [address] PCP - General Family Practice 05/02/23 documented as of this encounter
--- OUTSIDE RECORDS SUMMARY | 2024-12-20 22:26 | XMS_ITS | Encounter Summary ---
Author Organization [facility] Address [address], [place] [address] Care Team Providers Care Roller Die Cutting Machine Operator Name Role Phone Javed Fishman MD Primary Care Provider +1- [phone] Reason for Visit * Procedure/Equipment (Routine) - Incomplete Specialty Diagnoses / Procedures Referred By Contac t Referred To Contact Diagnoses Rectal bleeding Procedures CT Chest W IV Cont Mikhail Nunez MD [address] [facility] [address] [place] [address] Referral ID Status Reason Start Date Expiration Date V isits Requested Visits Authorized [id number] Incomplete 12/17/2024 03/18/2026 1 1 Encounter Details Date Type Department Care Team (Late st Contact Info) Description 12/17/2024 11:20 AM WOOD FURNITURE ASSEMBLER Ancillary Procedure [facility] [address] [address] Scan [address] [place] [address] Mikhail Nunez MD [address] [facility] [address] [place] [address] Rectal bleeding Social History Tobacco Use Types [...] Procedure Name Priority Date/Time Associated Diagnosis Comments CT CHEST W IV CONT STAT 12/17/2024 11 :41 AM WOOD FURNITURE ASSEMBLER Rectal bleeding documented in this encounter Results * CT Chest W IV Cont (12/17/2024 11:41 AM WOOD FURNITURE ASSEMBLER) Anatomical Region Laterality Modality Chest, Lung Computed Tomogra phy 12/17/2024 11:3 5 AM WOOD FURNITURE ASSEMBLER Impressions 12/17/2024 12:50 PM WOOD FURNITURE ASSEMBLER Unremarkable chest CT with no evidence of metastatic disease. Narrative 12/17/2024 12:50 PM WOOD FURNITURE ASSEMBLER COMPARISON: CT abdomen and pelvis 12/14/2024 TECHNIQUE: Images were obtained through the chest following the administration of 75 mL IOHEXOL 350 MG/ML IV SOLN contrast. FINDINGS: CHEST WALL AND LOWER NECK: Unremarkable. HEART AND VASCULATURE: Normal heart size. No pericardial effusion. No thoracic aortic aneurysm. MEDIASTINUM: Unremarkable esophagus. No adenopathy. LUNGS AND PLEURAL SPACE: Patent central airways. Clear lungs. No pneumothorax or pleural effusion. No suspicious pulmonary nodule. UPPER ABDOMEN: Unchanged compared with 12/14/2024. BONES: Minimal scoliosis, no acute or aggressive findings. Procedure Note Dmitriy Cortes MD - 12/17/2024 COMPARISON: CT abdomen and pelvis 12/14/2024 TECHNIQUE: Images were obtained through the chest following theadministration of 75 mL IOHEXOL 350 MG/ML IV SOLN contrast. FINDINGS: CHEST WALL AND LOWER NECK: Unremarkable. HEART AND VASCULATURE: Normal heart size. No pericardial effusion. Nothoracic aortic aneurysm. MEDIASTINUM: Unremarkable esophagus. No adenopathy. LUNGS AND PLEURAL SPACE: Patent central airways. Clear lungs. Nopneumothorax or pleural effusion. No suspicious pulmonary nodule. UPPER ABDOMEN: Unchanged compared with 12/14/2024. BONES: Minimal scoliosis, no acute or aggressive findings. IMPRESSION Unremarkable chest CT with no evidence of metastatic disease. Mikhail Nunez MD RAD CT documented in this encounter Visit Diagnoses Diagnosis Rectal bleeding Hemorrhage of rectum and anus documented in this encounter Administered Medications Inactive Administered Medications - up to 3 most recent administrations Medication Order MAR Action Action Date Dose Rate Site iohexol (OMNIPAQUE 350) 350 MG/ML injection 75 mL 75 mL, Intravenous, ONCE, On Fri12/17/24 at 1200, For 1 dose Given 12/17/2024 11:42 AM WOOD FURNITURE ASSEMBLER 75 mL sodium chloride 0.9% injection 10 mL 10 mL, Intravenous, ONCE, On Fri12/17/24 at 1200, For 1 dose Given 12/17/2024 11:42 AM WOOD FURNITURE ASSEMBLER 10 mL documented in this encounter Care Teams Roller Die Cutting Machine Operator Relationship Specialty [place] [address] [place] [address] PCP - General Family Practice 05/02/23 documented as of this encounter
--- OUTSIDE RECORDS SUMMARY | 2024-12-20 22:26 | XMS_ITS | Encounter Summary ---
Author Organization [facility] Address [address], [place] [address] Care Team Providers Care Tobacco Sorter Name Role Phone Javed Fishman MD Primary Care Provider +1- [phone] Reason for Visit * Reason Comments Pre-visit Planning Entered automaticall y based on patient selection in [employer]. Encounter Details Date Type Department Care Team (Late st Contact Info) Description 12/15/2024 5:05 PM COMBINATION MAN E-Visit Specialty Center 3931 General Surgery 3931 [facility] [address] [place], [place] [address] Mj Min MD [address] [place], [place] [address] Chief Comp: Pre-visit Planning Social History Tobacco Use Types Packs/Day Years [...] on filedocumented in this encounter Care Teams Tobacco Sorter Relationship Specialty [place] [address] [place] [address] PCP - General Family Practice 05/02/23 documented as of this encounter
--- OUTSIDE RECORDS SUMMARY | 2024-12-20 22:26 | XMS_ITS | Encounter Summary ---
[facility] Organization [facility] Address [address], [place] [address] Care Team Providers Care Business Mgr Name Role Phone Javed Fishman MD Primary Care Provider +1- [phone] Reason for Visit * Reason Comments Test Request Lab Test Needed Encounter Details Date Type Department Care Team (Late st Contact Info) Description 12/14/2024 Telephone Specialty Center 3931 General Surgery 3931 [facility] [address] [place], [place] [address] Ronit Almaguer RN Test Request; Lab Test Needed Social History Tobacco Use Types Packs/Day Years [...] as of this encounter Nursing Notes * Ronit Almaguer RN - 12/14/2024 3:21 PM CST Called patient and left message with scheduling phone number to get CT scan set up along with labs needed. RESS MAKER documented in this encounter Plan of Treatment Not on file documented as of this encounter Visit Diagnoses Not on filedocumented in this encounter Care Teams Business Mgr Relationship Specialty [place] [address] [place] [address] PCP - General Family Practice 05/02/23 documented as of this encounter
--- OUTSIDE RECORDS SUMMARY | 2024-12-20 22:26 | XMS_ITS | Encounter Summary ---
Author Organization [facility] Address [address] [place] [address] Care Team Providers Care Plug Saw Operator Name Role Phone Javed Fishman MD Primary Care Provider +1- [phone] Reason for Visit * Reason Comments GAS, PAIN Encounter Details Date Type Department Care Team (Late st Contact Info) Description 12/17/2024 Nurse Triage Careline [address], [place] [address] Unassigned, Provider [address] [place] [address] GAS, PAIN Social History Tobacco Use Types Packs/Day [...] of this encounter Nursing Notes * Rachna Carson, RN - 12/17/2024 8:13 PM CST Verified patient identity: Yes Situation/Background (brief explanation of current symptoms/situation): Pt c/o gas following eatingthat started yesterday, pt states that she has pain that is awful if she eats, pt states pt states that she has not had BM since colonoscopy yesterday, states that she is feeling feverish, has not taken , pt had blood work this morning, states that she missed a call at 1700 today from surgeon, ptHgB is 7.5 Reviewed with patient pertinent medical history (as it related to the call): Yes Reviewed with patient pertinent medications (as they relate to call): Yes Reviewed with patient pertinent allergies (as they relate to call): N/A Reason for Disposition Patient sounds very sick or weak to the triager Protocols used: Abdominal Pain - Fvremw-[id number]-JT Plan: Clinician consult Clinician name: Paged at [phone] Page returned at 2052 Assessment shared, orders are: 1) Go to ER for evaluation, could have a perforation Telephone Orders Read Back to clinician. 2058 - Returned call to pt, LMTCB, called again and LMTCB Rachna Ayala RN Careline9:06 PM 12/17/2024 RTRAIN CALIBRATION ENGINEER * Roxy De Oliveira - 12/17/2024 6:23 PM CST Verified patient identity using three identifiers: Yes Caller's relationship to patient: Self, Do you have a provider/clinic where you are seen for this? PN Specialty Symptoms Describe the reason for call/symptoms (include location and duration if applicable): Pt had a colonoscopy yesterday and was told that she may have colon cancer. Pt has been having constipation today.Pt also states that she missed a call from the colorectal surgeon's office, but she is not certain what the call was regarding. Plan:The current callback time to speak with a nurse is 1.5 hr. If your symptoms change or worsen, or if you have not received a call back in the stated timeframe, please call us back RTRAIN CALIBRATION ENGINEER documented in this encounter Plan of Treatment Not on file documented as of this encounter Visit Diagnoses Not on filedocumented in this encounter Care Teams Plug Saw Operator Relationship Specialty [place] [address] [place] [address] PCP - General Family Practice 05/02/23 documented as of this encounter
--- OUTSIDE RECORDS SUMMARY | 2024-12-20 22:26 | XMS_ITS | Encounter Summary ---
Author Organization [facility] Address [address], [place] [address] Care Team Providers Care Gis Analyst Developer Name Role Phone Javed Fishman MD Primary Care Provider +1- [phone] Reason for Visit * Reason Comments Appt. Scheduled Encounter Details Date Type Department Care Team (Late st Contact Info) Description 12/16/2024 Telephone Specialty Center 3931 Colorectal Surgery [address] [facility] [address] [place], [place] [address] Vikki Rosario, RN Appt. Scheduled Social History Tobacco Use Types Packs/Day Years [...] as of this encounter Nursing Notes * Vikki Rosario RN - 12/16/2024 4:48 PM CST LVM for patient that an appt is scheduled for tomorrow at 9:[address] Nunez. Offered to reschedule to next week if she prefers to be seen after colonoscopy pathology is back. She will need a chestCT and possibly additional imaging depending on pathology results. Callback number provided. RIOR WIRER documented in this encounter Plan of Treatment Not on file documented as of this encounter Visit Diagnoses Not on filedocumented in this encounter Care Teams Gis Analyst Developer Relationship Specialty [place] [address] [place] [address] PCP - General Family Practice 05/02/23 documented as of this encounter
--- OUTSIDE RECORDS SUMMARY | 2024-12-20 22:26 | XMS_ITS | Encounter Summary ---
Author Organization Formerly [facility], later [facility] Address [address], [place] [address] Care Team Providers Care Outreach Liaison Name Role Phone Javed Fishman MD Primary Care Provider [phone]- [phone] Reason for Referral * Procedure/Equipment (Routine) - New Request Specialty Diagnoses / Procedures Referred By Contac t Referred To Contact Diagnoses Rectal mass Rectal bleeding Procedures Colonoscopy Diagnostic Sami Shane MD [address] [place] [address] Referral ID Status Reason Start Date Expiration Date V isits Requested Visits Authorized [id number] New Request 02/13/2025 12/16/2026 1 1 FIELD TESTER * Procedure/Equipment (Routine) - New Request Specialty Diagnoses / Procedures Referred By Contac t Referred To Contact Diagnoses Rectal mass Hematochezia Procedures Colonoscopy Diagnostic Librado Ferrer MD [address] [place] [address] Referral ID Status Reason Start Date Expiration Date V isits Requested Visits Authorized [id number] New Request 02/12/2025 12/15/2026 1 1 FIELD TESTER Reason for Visit * Procedure/Equipment (Routine) - New Request Specialty Diagnoses / Procedures Referred By Renan helton Referred To Contact Diagnoses Rectal mass Hematochezia Procedures [place] [address] [place] [id number] Referral ID Status Reason Start Date Expiration Date V isits Requested Visits Authorized [id number] New Request 02/12/2025 12/15/2026 1 1 Encounter Details Date Type Department Care Team (Late st Contact Info) Description 12/16/2024 9:43 AM OIL FIELD TESTER - 12/16/2024 11:59 PM OIL FIELD TESTER Hospital Encounter Endoscopy at [facility] at [address] [place], [place] [id number] Sami Shane MD [address] [place] [id number] Rectal bleeding (Primary Dx); Rectal mass; Hematochezia Discharge Disposition: Home Social History Tobacco Use Types Packs/Day Years [...] Sign Reading Time Taken Comments Blood Pressure 90/55 12/16/2024 11:29 AM OIL FIELD TESTER Pulse 93 12/16/2024 11:29 AM OIL FIELD TESTER Temperature - - Respiratory Rate 14 12/16/2024 11:29 AM OIL FIELD TESTER Oxygen Saturation 100% 12/16/2024 11:29 AM OIL FIELD TESTER Inhaled Oxygen Concentration - - Weight 55.8 kg (123 lb) 12/16/2024 10:17 AM OIL FIELD TESTER Height 162.6 cm (5' 4) 12/16/2024 10:17 AM OIL FIELD TESTER Body Mass Index 21.11 12/16/2024 10:17 AM OIL FIELD TESTER documented in this encounter Progress Notes * Librado Ferrer MD - 12/16/2024 10:40 AM CST SERA Min. Dr. Shane to follow pathology and has ordered CT chest/abdomen/pelvis. BM FIELD TESTER documented in this encounter Procedure Notes * Sami Shane MD - 12/16/2024 11:43 AM CST Patient Name: Na Lei Procedure Date: 12/16/2024 10:21 AM Date of : 1985 Admit Type: Outpatient Age: 39 Gender: Female Note Status: Finalized Attending MD: Sami Shane MD, Procedure: Colonoscopy Indications: Suspected rectal cancer, Abnormal CT of the GI tract Providers: Sami Shane MD, Jazzimne Helton, RN Referring MD: Librado Ferrer Medicines: Fentanyl 125 micrograms IV, Midazolam 5 mg IV Complications: No immediate complications. Procedure: After I obtained informed consent, the scope was passed under direct vision. Throughout the procedure, the patient's blood pressure, pulse, and oxygen saturations were monitored continuously. The [id number] was introduced through the anus and advanced [...] from the initial medication administration until the podiatrist assists with initial maneuvers (biopsy / polypectomy [...] kind referral. Procedure Code(s): --- Professional --- 36539, Colonoscopy, flexible; with biopsy, single or multiple G0500, Moderate sedation services provided by the same physician or other qualified health pharmacy customer care specialist performing a gastrointestinal endoscopic service that sedation supports, requiring the presence of an independent trained observer to assist in the monitoring of the patient's level of consciousness and physiological status; initial 15 minutes of intra-service time; patient age 5 years or older (additional time may be reported with [address]6112, as appropriate) [address]95, Moderate sedation; each additional 15 minutes intraservice time Diagnosis Code(s): --- Professional --- K62.89, Other specified diseases of anus and rectum D49.0, Neoplasm of unspecified behavior of digestive system K56.690, Other partial intestinal obstruction R93.3, Abnormal findings on diagnostic imaging of other parts of digestive tract CPT copyright 2022 [employer]. All rights reserved. The codes documented in this report are preliminary and upon hospital coder review may be revised to meet current compliance requirements. Sami Shane MD 12/16/2024 11:43:03 AM Number of Addenda: 0 Note Initiated On: 12/16/2024 10:21 AM Endoscopy Report FIELD TESTER documented in this encounter Plan of Treatment Scheduled Orders Name Type Priority Associated Diagnoses Orde r Schedule Colonoscopy Diagnostic GI Routine Rectal mass Rectal bleeding Expected: 02/13/2025, Expires: 12/16/2025 documented as of this encounter Procedures Procedure Name Priority Date/Time Associated Diagnosis Comments SURGICAL PATHOLOGY, GI Routine 12/16/2024 11:31 AM OIL FIELD TESTER Rectal mass Hematochezia POCT URINE Routine 12/16/2024 10:38 AM OIL FIELD TESTER COLONOSCOPY DIAGNOSTIC Routine 12/16/2024 10:21 AM OIL FIELD TESTER Rectal mass Hematochezia documented in this encounter Results * Surgical Path - GI (12/16/2024 11:31 AM OIL FIELD TESTER) Case Report Surgical Pathology Case: [id number] Authorizing Provider: Sami Shane MD Collected: 12/16/2024 1131 Ordering Location: Endoscopy at [facility] Received: 12/16/2024 1145 [facility] at [place] [address] Building Pathologist: Flako Murcia MD Specimen: Colon, rectum 2:47 PM OIL FIELD TESTER [facility] FINAL DIAGNOSIS A. Colon, rectum, biopsy: Invasive squamous cell carcinoma, moderately differentiated, see comment Comment: A panel of immunohistochemical stains is performed. Tumor cells are immunohistochemically positive for p40 and negative for CDX2, supporting the diagnosis. Dr. Sami Shane is notified of the findings on December 17, 2024. RW has reviewed this case and concurs with the diagnosis. 2:47 PM OIL FIELD TESTER [facility] Clinical Information Rectal mass Hematochezia 2:47 PM OIL FIELD TESTER [facility] Microscopic Description Microscopic examination is performed. 2:47 PM OIL FIELD TESTER [facility] Special Stains The stain controls have been reviewed and stain appropriately. 2:47 PM OIL FIELD TESTER [facility] Gross Description A: The specimen is received in formalin and labeled with the patient's name and Colon, rectum. The specimen consists of multiple virgen-white irregular soft tissue fragments, ranging from 0.2 cm to 0.4 cm. The specimen is filtered and entirely submitted in one cassette. AW 2:47 PM OIL FIELD TESTER [facility] Embedded Images 2:47 PM OIL FIELD TESTER [facility] Tissue COLON STRUCTURE / Unknown 12/16/2024 11:31 AM OIL FIELD TESTER 12/16/2024 11:45 AM OIL FIELD TESTER Sami Shane MD LAB PATHOLOGY Performing Organization Address City/[facility]/ZIP Co de Phone Number [facility] [address] * POCT urine (12/16/2024 10:38 AM OIL FIELD TESTER) Urine Test - POC Negative Negative POCT Control Line Present, Clear Background - Internal control Yes POCT Cartridge Lot # [id number] POCT Urine 12/16/2024 10:3 8 AM OIL FIELD TESTER Sami Shane MD ET POINT OF CARE JERRI T ENTER/EDIT ORDERABLES Performing Organization Address City/[facility] Co de Phone Number POCT * Colonoscopy Diagnostic (12/16/2024 10:21 AM OIL FIELD TESTER) Anatomical Region Laterality Modality Other 12/16/2024 10:2 1 AM OIL FIELD TESTER Narrative 12/16/2024 10:21 AM OIL FIELD TESTER Patient Name: Na Lei Procedure Date: 12/16/2024 [...] and oxygen saturations were monitored continuously. The [id number] was introduced through the anus and advanced [...] from the initial medication administration until the podiatrist assists with initial maneuvers (biopsy / polypectomy [...] kind referral. Procedure Code(s): --- Professional --- 41082, Colonoscopy, flexible; with biopsy, single or multiple G0500, Moderate sedation services provided by the same physician or other qualified health pharmacy customer care specialist performing a gastrointestinal endoscopic service that sedation supports, requiring the presence of an independent trained observer to assist in the monitoring of the patient's level of consciousness and physiological status; initial 15 minutes of intra-service time; patient age 5 years or older (additional time may be reported with 59042, as appropriate) [address]351, Moderate sedation; each additional 15 minutes intraservice time Diagnosis Code(s): --- Professional --- K62.89, Other specified diseases of anus and rectum D49.0, Neoplasm of unspecified behavior of digestive system K56.690, Other partial intestinal obstruction R93.3, Abnormal findings on diagnostic imaging of other parts of digestive tract CPT copyright 2022 [employer]. All rights reserved. The codes documented in this report are preliminary and upon hospital coder review may be revised to meet current [...] and oxygen saturations were monitored continuously. The [id number] was introduced through the anus and advanced [...] from the initial medication administration until the podiatrist assists with initial maneuvers (biopsy / polypectomy [...] kind referral. Procedure Code(s): --- Professional --- 47105, Colonoscopy, flexible; with biopsy, single or multiple G0500, Moderate sedation services provided by the same physician or other qualified health pharmacy customer care specialist performing a gastrointestinal endoscopic service that sedation supports, requiring the presence of an independent trained observer to assist in the monitoring of the patient's level of consciousness and physiological status; initial 15 minutes of intra-service time; patient age 5 years or older (additional time may be reported with 16270, as appropriate) 49474, Moderate sedation; each additional 15 minutes intraservice time Diagnosis Code(s): --- Professional --- K62.89, Other specified diseases of anus and rectum D49.0, Neoplasm of unspecified behavior of digestive system K56.690, Other partial intestinal obstruction R93.3, Abnormal findings on diagnostic imaging of other parts of digestive tract CPT copyright 2022 [employer]. All rights reserved. The codes documented in this report are preliminary and upon hospital coder review may be revised to meet current compliance requirements. Sami Shane MD 12/16/2024 11:43:03 AM Number of Addenda: 0 Note Initiated On: 12/16/2024 10:21 AM Endoscopy Report Librado Ferrer MD ET GI PROCEDURE ORDChandni RUIZ documented in this encounter Visit Diagnoses Diagnosis Rectal bleeding- Primary Hemorrhage of rectum and anus Rectal mass Other symptoms involving digestive system Hematochezia Blood in stool documented in this encounter Administered Medications Inactive Administered Medications - up to 3 most recent administrations Medication Order MAR Action Action Date Dose Rate Site fentaNYL (SUBLIMAZE) injection 25-100 mcg 25-100 mcg, Intravenous, PRN, Other, Moderate Sedation, Starting on Flor 12/16/24 at 0710, Until Fri12/17/24 at 0205, Administer in 25-100 mcg increments as directed by endoscopy procedure Practitioner up to a total of 300 mcg. (Give only during endoscopy procedure visit) Given 12/16/2024 11:08 AM OIL FIELD TESTER 25 mcg Given 12/16/2024 11:03 AM OIL FIELD TESTER 50 mcg Given 12/16/2024 11:01 AM OIL FIELD TESTER 50 mcg midazolam (VERSED) injection 0.5-2 mg 0.5-2 mg, Intravenous, PRN, Sedation, Starting on Flor 12/16/24 at 0710, Until Fri12/17/24 at 0205, Administer in 0.5-2 mg increments as directed by endoscopy procedure Practitioner up to a total of 8 mg. (Give only during endoscopy procedure visit) Given 12/16/2024 11:08 AM OIL FIELD TESTER 2 mg Given 12/16/2024 11:03 AM OIL FIELD TESTER 1 mg Given 12/16/2024 11:01 AM OIL FIELD TESTER 2 mg sodium chloride 0.9% injection 10-60 mL 10-60 mL, Intravenous, PRN, Line Patency, For port access and deaccess only, Starting on Flor 12/16/24 at 0710, Until 12/17/24 at 0205 Given 12/16/2024 11:12 AM OIL FIELD TESTER 20 mL documented in this encounter Care Teams Outreach Liaison Relationship Specialty [place] [address] [place] [address] PCP - General Family Practice 05/02/23 documented as of this encounter
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
--- OUTSIDE RECORDS SUMMARY | 2024-12-20 22:26 | XMS_ITS | Encounter Summary ---
[facility] Address [address] [place] [address] Care Team Providers Care Process Control Manager Name Role Phone Javed Fishman MD Primary Care Provider +1- [phone] Reason for Visit * Reason Comments Colonoscopy Prep Encounter Details Date Type Department Care Team (Late st Contact Info) Description 12/15/2024 Nurse Triage Careline [address] [place], [place] [id number] Unassigned, Provider [address] [place] [address] Colonoscopy Prep Social History Tobacco Use Types Packs/Day Years [...] as of this encounter Nursing Notes * Deanne Woods RN - 12/15/2024 6:00 PM CST Situation/Background (brief explanation of current symptoms/situation): pt has colonoscopy tomorrow The PEG solution has flavor packet but says pharmacist was to add it, can she add it? Pt now sees the nausea med so has no questions on that Reviewed pertinent medical history (as relates to the call): Yes Reviewed pertinent medications (as relates to the call): Yes Pt was advised she can add the flavor packet when she mixes the PEG solution Reason for Disposition Question about upcoming scheduled surgery, procedure or test, no triage required, and triager able to answer question Protocols used: Information Only Call - No [id number] CASTING MACHINE OPERATOR HELPER * Tierney Eckert - 12/15/2024 5:04 PM CST Verified patient identity using three identifiers: Yes Caller's relationship to patient: Self, Do you have a provider/clinic where you are seen for this? [place] Specialty Medication Questions/New Med Request/ Side Effects What medication are you calling about (name and/or type)? Anti-nausea What is your question/concern? Pt has to prep for GI endoscopy tomorrow and is wondering if she canget anti-nausea medication prescribed? Plan: The current callback time to speak with a nurse is 1 hour. If your symptoms change or worsen,or if you have not received a call back in the stated timeframe, please call us back CASTING MACHINE OPERATOR HELPER documented in this encounter Plan of Treatment Not on file documented as of this encounter Visit Diagnoses Not on filedocumented in this encounter Care Teams Process Control Manager Relationship Specialty [place] [address] [place] [id number] PCP - General Family Practice 05/02/23 documented as of this encounter
--- OUTSIDE RECORDS SUMMARY | 2024-12-20 22:26 | XMS_ITS | Encounter Summary ---
Author Organization [facility] Address [address] [place] [address] Care Team Providers Care Supervisor Boat Outfitting Name Role Phone Javed Fishman MD Primary Care Provider +1- [phone] Encounter Details Date Type Department Care Team (Late st Contact Info) Description 12/15/2024 Notes/Orders Obstetrics & Gynecology at [address] [address] Berenice Ramirez LPN Patient counseled (Primary Dx) Social History Tobacco Use Types [...] as of this encounter Visit Diagnoses Diagnosis Patient counseled- Primary documented in this encounter Care Teams Supervisor Boat Outfitting Relationship Specialty [place] [address] [place] [address] PCP - General Family Practice 05/02/23 documented as of this encounter
--- OUTSIDE RECORDS SUMMARY | 2024-12-20 22:26 | XMS_ITS | Encounter Summary ---
Author Organization [facility] Address [address], [place] [address] Care Team Providers Care Handhole Machine Operator Name Role Phone Javed Fishman MD Primary Care Provider +1- [phone] Encounter Details Date Type Department Care Team (Late st Contact Info) Description 12/15/2024 E-Visit Endoscopy at [facility] at [address] [place] [address] Mychart, [place] [address] Social History Tobacco Use Types Packs/Day Years [...] on filedocumented in this encounter Care Teams Handhole Machine Operator Relationship Specialty [place] [address] [place] [address] PCP - General Family Practice 05/02/23 documented as of this encounter
--- OUTSIDE RECORDS SUMMARY | 2024-12-20 22:26 | XMS_ITS | Encounter Summary ---
Author Organization [facility] Address [address], [place] [address] Care Team Providers Care Senior Business Objects Developer Name Role Phone Javed Fishman MD Primary Care Provider +1- [phone] Reason for Visit * Procedure/Equipment (Routine) - Incomplete Specialty Diagnoses / Procedures Referred By Contac t Referred To Contact Diagnoses Lymphadenopathy Procedures US Groin Rt Mj Min MD [address] [place] [address] Referral ID Status Reason Start Date Expiration Date V isits Requested Visits Authorized [id number] Incomplete 12/07/2024 03/08/2026 1 1 Encounter Details Date Type Department Care Team (Late st Contact Info) Description 12/09/2024 6:45 PM COMMUNICATION SKILLS INSTRUCTOR Ancillary Procedure Julianna [facility] [address] [address] [address] [place] [address] Mj Min MD [address] [place] [address] Lymphadenopathy Social History Tobacco Use Types Packs/Day [...] Name Priority Date/Time Associated Diagnosis Comments US GROIN RT Routine 12/09/2024 7:08 PM COMMUNICATION SKILLS INSTRUCTOR Lymphadenopathy documented in this encounter Results * US Groin Rt (12/09/2024 7:08 PM COMMUNICATION SKILLS INSTRUCTOR) Anatomical Region Laterality Modality Pelvis Ultrasound 12/09/2024 6:40 PM COMMUNICATION SKILLS INSTRUCTOR Impressions 12/09/2024 7:23 PM COMMUNICATION SKILLS INSTRUCTOR Palpable area of concern in the right groin corresponds to a 5.3 x 5.3 x 4.2 cm mixed cystic and solid mass with peripheral flow. This may represent a necrotic lymph node or other cystic mass. Consider CT imaging for further evaluation. Narrative 12/09/2024 7:23 PM COMMUNICATION SKILLS INSTRUCTOR Examination: Grayscale and color Doppler imaging of [...] CT imagingfor further evaluation. Mj Min MD [facility] documented in this encounter Visit Diagnoses Diagnosis Lymphadenopathy Enlargement of lymph nodes documented in this encounter Care Teams Senior Business Objects Developer Relationship Specialty [place] [address] [address] [place] [id number] PCP - General Family Practice 05/02/23 documented as of this encounter
--- OUTSIDE RECORDS SUMMARY | 2024-12-20 22:26 | XMS_ITS | Clinical Summary ---
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 Venipuncture / Unknown 12/15/2024 3:38 PM INSTALLATION HELPER 12/15/2024 4:10 PM [facility] CENTRAL LAB - 12/16/2024 10:28 AM [facility] This assay has been shown to have interference from high levels of biotin. Specimens from patients who are undergoing biotin therapy and/or ingesting biotin supplements may contain high levels of biotin which may cause falsely low results. Interpret the results in light of the total clinical presentation of the patient. The [employer] CA199 Chemiluminescent immunoassay is used. Results obtained with different methods or kits cannot be used interchangeably Mj Min MD LAB_1 Performing Organization Address City/[facility] Co de Phone Number [facility] [address] * HIV 1/2 Ag/Ab 4th Generation (12/15/2024 3:38 PM INSTALLATION HELPER) HIV 1/2 Antigen/Antib michele (4th generation) Negative (Non Reactive) Negative (Non Reactive) 12/15/2024 8:50 PM INSTALLATION HELPER [facility] Comment:HIV-1 p24 Antigen an d HIV-1/HIV-2 Antibody not detected Blood Venipuncture / Unknown 12/15/2024 3:38 PM INSTALLATION HELPER 12/15/2024 4:10 PM INSTALLATION HELPER Mj Min MD LAB_1 Performing Organization Address [facility] Co de Phone Number [facility] [address] [place] [address] * CA 125 (Carbohydrate Antigen 125) (12/15/2024 3:38 PM INSTALLATION HELPER) Pathologist [facility] Cancer Antigen 125 24 0 - 35 U/mL 12/15/2024 9:31 PM INSTALLATION HELPER [facility] Blood Venipuncture / Unknown 12/15/2024 3:38 PM INSTALLATION HELPER 12/15/2024 4:10 PM INSTALLATION HELPER Narrative [facility] - 12/15/2024 9:31 PM INSTALLATION HELPER The [employer] CA125 Chemiluminescent assay is used. Results obtained with different test methods or kits cannot be used interchangeably. Mj Min MD LAB_1 Performing Organization Address [facility] Co de Phone Number [facility] [address] * Carcinoembryonic Antigen (CEA Blood) (12/15/2024 3:38 PM INSTALLATION HELPER) Carcinoembryonic Antigen 2.3 0.0 - 5.0 ng/mL 12/15/2024 9:30 PM INSTALLATION HELPER [facility] Blood Venipuncture / Unknown 12/15/2024 3:38 PM INSTALLATION HELPER 12/15/2024 4:10 PM INSTALLATION HELPER Narrative [facility] - 12/15/2024 9:30 PM INSTALLATION HELPER The [employer] CEA Chemiluminescent immunoassay is used. Results obtained with different test methods or kits cannot be used interchangeably. Mj Min MD LAB_1 [facility] [address] [place] [address], [facility] * CT Abd Pelvis W IV Cont (12/14/2024 7:08 PM INSTALLATION HELPER) Anatomical Region Laterality Modality Abdomen, Pelvis Computed Tomogra phy 12/14/2024 7:07 PM INSTALLATION HELPER Impressions 12/15/2024 8:07 AM INSTALLATION HELPER 1. Bilateral necrotic inguinal adenopathy, right greater than left. Findings are suspicious for metastatic disease. 2. Possible polypoid enhancing lesion of the anterior rectum. Recommend correlation with physical exam/sigmoidoscopy. Perirectal nodularity is concerning for lymphadenopathy. 3. Solitary right kidney noted. Narrative 12/15/2024 8:07 AM INSTALLATION HELPER COMPARISON: None TECHNIQUE: Images were obtained through [...] kidney noted. Mj Min MD RAD CT * US Groin Rt (12/09/2024 7:08 PM INSTALLATION HELPER) Anatomical Region Laterality Modality Pelvis Ultrasound 12/09/2024 6:40 PM INSTALLATION HELPER Impressions 12/09/2024 7:23 PM INSTALLATION HELPER Palpable area of concern in the right groin corresponds to a 5.3 x 5.3 x 4.2 cm mixed cystic and solid mass with peripheral flow. This may represent a necrotic lymph node or other cystic mass. Consider CT imaging for further evaluation. Narrative 12/09/2024 7:23 PM INSTALLATION HELPER Examination: Grayscale and color Doppler imaging of [...] CT imagingfor further evaluation. Mj Min MD RAD US * Pap Smear (10/26/2018 2:32 PM INSTALLATION HELPER) 10/26/2018 2:32 PM INSTALLATION HELPER Narrative [facility] - 11/11/2018 8:26 AM INSTALLATION HELPER FINAL GYNECOLOGICAL CYTOLOGY REPORT Pathology #: [id number] Date Obtained: 10/26/2018 Date Received: 10/27/2018 INTERPRETATION/RESULTS: Atypical squamous cells of undetermined significance (ASCUS). If requested and applicable, HPV testing will be performed and reported separately, per ACOG guidelines. SPECIMEN ADEQUACY: Satisfactory for Evaluation. Endocervical cells/transformation zone component present. Verified on 11/11/2018 by CHELA CASTRO MD (electronic signature) CLINICAL NOTES: Abnormal bleeding: No, LMP: 12/3/18, Menstrual status: None Apply, Current form of therapy: None apply LIQUID BASED PAP SMEAR SPECIMEN TYPE: DIAGNOSTIC CERVICAL PAP TEST PLEASE NOTE: The pap smear is a screening test designed to aid in the detection of cervical cancer and its precursor lesions. It is not a diagnostic procedure and should not be used as the sole means of detecting cervical cancer. Both false-positive and false-negative reports may occur. Performed at [address] [address] Dylan Veliz MD LAB_1 Performing Organization Address [facility] de Phone Number [facility] [address] [place] [address] * HEPATITIS C ANTIBODY, WITH REFLEX (11/20/2016 10:14 AM INSTALLATION HELPER) Hepatitis C Antibody Nonreactive Nonreactive PN [facility] 11/20/2016 10:1 4 AM INSTALLATION HELPER 11/20/2016 1:06 PM INSTALLATION HELPER Narrative PN SOFT - 11/20/2016 2:28 PM INSTALLATION HELPER Performed at [address] [address] CLIA number [id number] Dylan Veliz MD LAB_1 Performing Organization Address [facility] de Phone Number [facility] [address] [place] [address] from Last 3 Months or Most Recently Relevant to Health Maintenance Care Teams Mellowing Machine Operator Relationship Specialty [place] [address] [place] Hernandez [id number] PCP - General Family Practice 05/02/23
--- OUTSIDE RECORDS SUMMARY | 2024-12-20 22:27 | XMS_ITS | Encounter Summary ---
Author Organization [facility] Address [address] [place] [address]. [place] [address] Care Team Providers Care Satellite Dish Repairer Name Role Phone [facility], [facility] Primary Care Pr ovider Encounter Details Date Type Department Care Team (Latest Contact Info) Description 12/18/2024 Travel Social History Tobacco Use Types Packs/Day Years Used Date Smoking Tobacco: Every Day Cigarettes 1 7 Smokeless Tobacco: Never Alcohol Use Standard Drinks/Week Comments No 10 (1 standard drink = 0.6 oz pu re alcohol) Adolescent Education Answer Date Record ed Getting School Help Needed Not on file 08/17 Comments No Sex and Gender Information Value Date Recorded Sex Assigned at Not on file Legal Sex Female 3:27 AM SOUS CHEF Gender Identity Not on file Sexual Orientation Not on file documented as of this encounter Plan of Treatment Not on file documented as of this encounter Visit Diagnoses Not on filedocumented in this encounter Care Teams Satellite Dish Repairer Relationship Specialty Start Date End Date [facility] [address] [place] [address] PCP - General 04/15/23 documented as of this encounter
--- OUTSIDE RECORDS SUMMARY | 2024-12-20 22:27 | XMS_ITS | Encounter Summary ---
Author Organization [facility] Address [address] [place] [address] Care Team Providers Care Crystal Slicer Name Role Phone Clinic, [facility] Reason for Visit * Reason Comments Abnormal Labs * Auth/Cert Specialty Diagnoses / Procedures Referred By Renan t Referred To Contact EMERGENCY MEDICINE Diagnoses Anemia, unspecified type Rectal cancer (H) [facility] Emergency Dept [address] [place] [address] Phone: tel:[phone] fax: Referral ID Status Reason Start Date Expiration Date Visits Re quested Visits Authorized [id number] 1 1 Encounter Details Date Type Department Care Team (Late st Contact Info) Description 12/18/2024 7:31 PM CHEMICAL DEPENDENCY NURSE - 12/19/2024 3:18 AM [facility] Hospital Encounter [facility] Emergency Dept [address] [place] [address] Shaheen Aggarwal MD EMERGENCY PHYSICIAN [facility] [address] [place] [address] Darius Arriaga MD [address] [place], [place] [id number] Anemia, unspecified type; Rectal cancer (H) Discharge Disposition: Left Against Medical Advice Social History Tobacco Use Types Packs/Day Years [...] on file Legal Sex Female 3:27 AM CHEMICAL DEPENDENCY NURSE Gender Identity Not on file Sexual Orientation Not on file documented as of this encounter Last Filed Vital Signs Vital Sign Reading Time Taken Comments Blood Pressure 104/62 12/19/2024 1:58 AM CHEMICAL DEPENDENCY NURSE Pulse 97 12/19/2024 1:58 AM CHEMICAL DEPENDENCY NURSE Temperature 36.7 C (98.1 F) 12/19/2024 1:58 AM CHEMICAL DEPENDENCY NURSE Respiratory Rate 20 12/19/2024 1:58 AM CHEMICAL DEPENDENCY NURSE Oxygen Saturation 98% 12/19/2024 1:04 AM CHEMICAL DEPENDENCY NURSE Inhaled Oxygen Concentration - - Weight 56.5 kg (124 lb 9 oz) 12/18/2024 7:27 PM CHEMICAL DEPENDENCY NURSE Height 162.6 cm (5' 4) 12/18/2024 9:01 PM CHEMICAL DEPENDENCY NURSE Body Mass Index 21.38 12/18/2024 7:27 PM CHEMICAL DEPENDENCY NURSE documented in this encounter Discharge Summaries * Darius Arriaga MD - 12/19/2024 3:01 AM CST [facility] Hospitalist Discharge Summary Date of Admission: 12/18/2024 Date of Discharge: 12/19/2024 Discharging Provider: Darius Arriaga MD Discharge Service: Hospitalist Service Discharge Diagnoses Acute anemia Leukocytosis Thrombocytosis 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 #Acute normocytic anemia The patient presents with acute anemia to 6.9. She has not been having profuse bright red blood perrectum or melena/hematochezia. However she does states she passes clots nearly every day. Likely her anemia is due to her invasive rectal squamous cell carcinoma. In the ER she was found to have Hgb 6.9. Hemodynamically stable at the time of admission. -S/p 1 unit PRBCs in the ED -Recheck CBC is pending at the time of discharge -Emphasized the need to follow-up with colorectal surgeon and oncology #Leukocytosis #Thrombocytosis Differential for leukocytosis: Dehydration and stress demargination v infection. The patient statesshe may be having subjective fevers. She tells me she was recently treated for UTI. She is not having any dysuria. No dyspnea, cough, congestion. No new rash to suggest cellulitis. Overall she appears very dehydrated and she could have elevated WBC/plt count because of this. -Ordered blood cultures drawn off peripheral line, pending at the time of discharge -UA not concerning for infection -Procalcitonin negative #Recently diagnosed metastatic invasive rectal squamous cell carcinoma The patient underwent colonoscopy on 12/16/2024 [facility]. Exam was notable for a partially obstructing tumor in the distal rectum which was biopsied. Pathology returned Invasive squamous cell carcinoma. CTAP obtained on 12/14/2024 notable for bilateral necrotic inguinal adenopathy. CT chest obtained on 12/17 with no findings of metastatic disease. The patient states she wishes to avoid chemotherapy if possible. Furthermore she is not sure she will stay throughout the night may leave AGAINST MEDICAL ADVICE. She states she wishes to have her cancer treated at the [facility]. -She ended up leaving AGAINST MEDICAL ADVICE -Emphasized the need to follow-up with colorectal surgeon and oncology #Homelessness #Food insecurity The patient is currently homeless. She lives in a hotel with her 2 children aged 8 and 9. 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 However they have food insecurity as she states her food stamps were recently cut off. -Social work salted however she did not have time to see social work before she left AMA #Tobacco use The patient smokes cigarettes. She declines nicotine replacement therapy. Consultations This Hospital Stay CARE MANAGEMENT / SOCIAL WORK IP CONSULT Code Status No Order Time Spent on this Encounter I, Darius Arriaga MD, personally saw the patient today and spent less than 30 minutes discharging this patient. Darius Arriaga MD [facility] EMERGENCY DEPT [address] [facility] [address] Physical Exam Vital Signs: Temp: 98.1 ??F (36.7 ??C) Temp src: Oral BP: 104/62 Pulse: 97 Resp: 20 SpO2: 98 % O2 Device: None (Room air) Weight: 124 lbs 8.96 oz GENERAL: Lying in bed, no distress, cachectic HEENT: NC/AT, sclera anicteric CV: RRR on the monitor PULM: Normal respiratory effort GI: Nondistended MSK: No LE edema NEURO: Awake, alert, oriented to 12/19/2024, CN II-XII grossly intact, SANTIAGO, appears nonfocal SKIN: no rash Primary Care Physician [facility] Discharge Orders No discharge procedures on file. Significant Results and Procedures Most Recent 3 CBC's: Recent Labs Lab Test 12/18/241958 WBC 27.5* HGB 6.9* MCV 83 PLT 940* Most Recent 3 BMP's: Recent Labs Lab Test 12/18/241958 NA 136 POTASSIUM 3.9 CHLORIDE 99 CO2 24 BUN 6.6 CR 0.55 ANIONGAP 13 MARYELLEN 8.6* GLC 110* Discharge Medications Current Discharge Medication List CONTINUE these medications which have NOT CHANGED Details ibuprofen (ADVIL,MOTRIN) 600 MG tablet Take 1 tablet (600 mg) by mouth every 6 hours as needed for other (cramping) Qty: 30 tablet, Refills: 0 Associated Diagnoses: Vaginal delivery Vit-Fe Fumarate-FA ( MULTIVITAMIN PLUS IRON) 27-0.8 MG TABS Take 1 tablet by mouthdaily Allergies No Known Allergies ICAL DEPENDENCY NURSE documented in this encounter Medications at Time of Discharge ibuprofen (ADVIL,MOTRIN) 600 MG tabletIndications:V aginal delivery Take 1 tablet (600 mg) by mouth every 6 hours as needed for other (cramping) 30 tablet 0 10/15/2016 Vit-Fe Fumarate-FA ( MULTIVITAMIN PLUS IRON) 27-0.8 MG TABS Take 1 tablet by mouth daily documented as of this encounter H&P Notes * Darius Arriaga MD - 12/18/2024 11:02 PM CST [facility] History and Physical - Hospitalist Service Date of Admission: 12/18/2024 Assessment & Plan Na Lei is a 39 year old female admitted on 12/18/2024. 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 #Acute normocytic anemia The patient presents with acute anemia to 6.9. She has not been having profuse bright red blood perrectum or melena/hematochezia. However she does states she passes clots nearly every day. Likely her anemia is due to her invasive rectal squamous cell carcinoma. In the ER she was found to have Hgb 6.9. Hemodynamically stable at the time of admission. -S/p 1 unit PRBCs in the ED -Recheck CBC after blood is finished transfusing -Will consult GI and colorectal if the patient has massive bleeding #Leukocytosis #Thrombocytosis Differential for leukocytosis: Dehydration and stress demargination v infection. The patient statesshe may be having subjective fevers. She tells me she was recently treated for UTI. She is not having any dysuria. No dyspnea, cough, congestion. No new rash to suggest cellulitis. Overall she appears very dehydrated and she could have elevated WBC/plt count because of this. However will pursue workup for infection. -Ordered blood cultures to be drawn off peripheral line (the patient states she does not want any more blood draws if possible) -UA with reflex to culture -Add on procalcitonin -Monitor CBC -Start antimicrobials if the patient develops signs of systemic illness #Recently diagnosed metastatic invasive rectal squamous cell carcinoma The patient underwent colonoscopy on 12/16/2024 [facility]. Exam was notable for a partially obstructing tumor in the distal rectum which was biopsied. Pathology returned Invasive squamous cell carcinoma. CTAP obtained on 12/14/2024 notable for bilateral necrotic inguinal adenopathy. CT chest obtained on 12/17 with no findings of metastatic disease. The patient states she wishes to avoid chemotherapy if possible. Furthermore she is not sure she will stay throughout the night may leave AGAINST MEDICAL ADVICE. She states she wishes to have her cancer treated at the [facility]. -Colorectal and oncology consult in the a.m. if the patient is still here (not ordered) -Start bowel regimen with Senokot 17.2 mg twice daily and MiraLAX twice daily #Homelessness #Food insecurity The patient is currently homeless. She lives in a hotel with her 2 children aged 8 and 9. 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 However they have food insecurity as she states her food stamps were recently cut off. -Social work consult #Tobacco use The patient smokes cigarettes. She declines nicotine replacement therapy. Diet: Regular diet, will give 1 L NS DVT Prophylaxis: Pneumatic Compression Devices Abernathy Catheter: Not present Lines: None Cardiac Monitoring: None Code Status: Full code, discussed on admission Clinically Significant Risk Factors Present on Admission # Hypoalbuminemia: Lowest albumin = 3.1 g/dL at 12/18/2024 7:59 PM, will monitor as appropriate # Coagulation Defect: INR = 1.39 (Ref range: 0.85 - 1.15) and/or PTT = N/A, will monitor for bleeding # Anemia: based on hgb <11 Disposition Plan Medically Ready for Discharge: Anticipated in 2-4 Days if the patient decides to stay and see colorectal surgery Darius rAriaga MD Hospitalist Service [facility] Securely message with [employer] (more info) Text page via [facility] Paging/Directory Chief Complaint Low red blood cells History is obtained from the patient History of Present Illness Na Lei is a 39 year old female who has PMH most notable for left nephrectomy, tobacco use,recently diagnosed metastatic invasive rectal squamous cell carcinoma. The patient was recently diagnosed with invasive rectal squamous cell carcinoma. She had colonoscopy on 12/16 at [facility] pathology returned positive for rectal squama cell carcinoma. She had lab work done yesterday which was notable for Hgb 7.7. She was referred to the ED for this. She states she passes clots per rectum every day. No profuse hematochezia or melena. No syncope but does haveorthostatic symptoms. She tells me she was recently treated for a UTI. She does not have any dysuria. No cough, congestion, shortness of breath, chest pain. She is homeless and lives with her 2 children in a hotel room. She has poor access to food. ER course: -AF, HR 110s, RR 18, BP 150s/60s and on RA -WBCs 27.5, Hgb 6.9, PLT 940 -INR 1.39 -Given 1 unit PRBCs Past Medical History Past Medical History: Diagnosis Date Chronic kidney disease depression with first baby, no meds Precipitate labor, delivered, current hospitalization 10/14/2016 Tobacco use during , delivered 10/14/2016 Vaginal delivery 10/14/2016 Past Surgical History Past Surgical History: Procedure Laterality Date GENITOURINARY SURGERY Left Nephrectomy as a child. 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 Taking? Vit-Fe Fumarate-FA ( MULTIVITAMIN PLUS IRON) 27-0.8 MG TABS Yes No Sig: Take 1 tablet by mouth daily ibuprofen (ADVIL,MOTRIN) 600 MG tablet No No Sig: Take 1 tablet (600 mg) by mouth every 6 hours as needed for other (cramping) Facility-Administered Medications: None Review of Systems The 10 point Review of Systems is negative other than noted in the HPI or here. Social History I have reviewed this patient's social history and updated it with pertinent information if needed. Social History Tobacco Use Smoking status: Every Day Current packs/day: 1.00 Average packs/day: 1 pack/day for 7.0 years (7.0 ttl pk-yrs) Types: Cigarettes Smokeless tobacco: Never Substance Use Topics Alcohol use: No Alcohol/week: 10.0 standard drinks of alcohol Types: 12 Standard drinks or equivalent per week Drug use: No Family History I have reviewed this patient's family history and updated it with pertinent information if needed. Family History Problem Relation Age of Onset Hypertension Mother Allergies No Known Allergies Physical Exam Vital Signs: Temp: 98.8 ??F (37.1 ??C) Temp src: Temporal BP: 115/61 Pulse: 116 Resp: 18 SpO2: 100 % Weight: 124 lbs 8.96 oz GENERAL: Lying in bed, no distress, appears stated age, cachectic HEENT: NC/AT, sclera anicteric CV: Mildly tachycardic but regular, no murmurs rubs or gallops PULM: CTAB GI: Abd soft, NT, ND, no involuntary or voluntary guarding, no pain when I bumped the bed, not an acute abdomen MSK: WWP, no LE edema NEURO: Awake, alert, oriented to 12/19/2024, CN II-XII grossly intact, SANTIAGO, appears nonfocal SKIN: no rash Medical Decision Making 60 MINUTES SPENT BY ME on the date of service doing chart review, history, exam, documentation & further activities per the note. Data I have personally reviewed the following data over the past 24 hrs: 27.5 (H) \ 6.9 (LL) / 940 (H) 136 99 6.6 / 110 (H) 3.9 24 0.55 \ ALT: 40 AST: 27 AP: 374 (H) TBILI: 0.3 ALB: 3.1 (L) TOT PROTEIN: 7.2 LIPASE: N/A INR: 1.39 (H) PTT: N/A D-dimer: N/A Fibrinogen: N/A Imaging results reviewed over the past 24 hrs: No results found for this or any previous visit (from the past 24 hours). ICAL DEPENDENCY NURSE documented in this encounter ED Notes * Komal Grijalva RN - 12/19/2024 3:00 AM CST PT chose to leave AMA. Hospitalist Dr. Arriaga spoke with patient and answered all questions. ICAL DEPENDENCY NURSE * Alisha Ngo RN - 12/18/2024 10:46 PM CST [facility] ED Nurse Handoff Report ED Chief complaint: Abnormal Labs . ED Diagnosis: Final diagnoses: None Allergies: No Known Allergies Code Status: Full Code Activity level - Baseline/Home: independent. Activity Level - Current: independent. Lift room needed: No. 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 Infection: Not Applicable. Respiratory status: Room air Vital Signs (within 30 minutes): Vitals: 12/18/24 1927 12/18/24 2101 BP: 115/61 Pulse: 116 Resp: 18 Temp: 98.8 ??F (37.1 ??C) TempSrc: Temporal SpO2: 100% Weight: 56.5 kg (124 lb 9 oz) Height: 1.626 m (5' 4) Cardiac Rhythm: , Pain level: Patient confused: No. Patient Falls Risk: nonskid shoes/slippers when out of bed. Elimination Status: due to void Patient Report - Initial Complaint: abnormal labs. Focused Assessment: 39 year old female who presents to the ED for abnormal labs. The patient was diagnosed with colon cancer recently, and had lab work done yesterday. She states she missed a call from her oncologist informing her that her hemoglobin was 7.7 and she should be seen in the ED. Patient states she does not eat much as it causes discomfort, and does not have many bowel movements. Her adds that the patient averages about 3 bowel movements per month. Denies any bloody stool, hematuria, or abnormal vaginal bleeding. Patient is a smoker, but has cut down significantly since her diagnosis. She does not have her next appointment with oncology scheduled as she has a busy work schedule. She adds that at her last visit, the plan was to move forward with radiation/chemo and pushback surgery. No other personal history of cancer prior to her most recent diagnosis. She does havea family history of cancer from her mother and father. Abnormal Results: Labs Ordered and Resulted from Time of ED Arrival to Time of ED Departure COMPREHENSIVE METABOLIC PANEL - Abnormal Result Value Sodium 136 Potassium 3.9 Carbon Dioxide (CO2) 24 Anion Gap 13 Urea Nitrogen 6.6 Creatinine 0.55 GFR Estimate >90 Calcium 8.6 (*) Chloride 99 Glucose 110 (*) Alkaline Phosphatase 374 (*) AST 27 ALT 40 Protein Total 7.2 Albumin 3.1 (*) Bilirubin Total 0.3 INR - Abnormal INR 1.39 (*) CBC WITH PLATELETS AND DIFFERENTIAL - Abnormal WBC Count 27.5 (*) RBC Count 2.71 (*) Hemoglobin 6.9 (*) Hematocrit 22.4 (*) MCV 83 MCH 25.5 (*) MCHC 30.8 (*) RDW 14.9 Platelet Count 940 (*) % Neutrophils 78 % Lymphocytes 11 % Monocytes 6 % Eosinophils 4 % Basophils 1 % Immature Granulocytes 1 NRBCs per 100 WBC 0 Absolute Neutrophils 21.5 (*) Absolute Lymphocytes 3.0 Absolute Monocytes 1.5 (*) Absolute Eosinophils 1.1 (*) Absolute Basophils 0.1 Absolute Immature Granulocytes 0.3 Absolute NRBCs 0.0 TYPE AND SCREEN, ADULT ABO/RH(D) O POS Antibody Screen Negative SPECIMEN EXPIRATION DATE [id number] PREPARE RED BLOOD CELLS (UNIT) Blood Component Type Red Blood Cells Product Code [id number] Unit Status Ready for issue Unit Number [id number] CROSSMATCH Compatible CODING SYSTEM [id number] PREPARE RED BLOOD CELLS (UNIT) ABO/RH TYPE AND SCREEN No orders to display Treatments provided: see EMR Family Comments: involved and supportive OBS brochure/video discussed/provided to patient: Yes ED Medications: Medications acetaminophen (TYLENOL) tablet 1,000 mg (1,000 mg Oral $Given 12/18/242022) Drips infusing: No For the majority of the shift this patient was Green. Interventions performed were NA. Sepsis treatment initiated: No Cares/treatment/interventions/medications to be completed following ED care: see inpatient orders ED Nurse Name: Alisha Ngo RN 10:46 PM ICAL DEPENDENCY NURSE * Shaheen Aggarwal MD - 12/18/2024 7:34 PM CST Emergency Department Note History of Present Illness Chief Complaint Abnormal Labs HPI Na Lei is a 39 year old female who presents to the ED for abnormal labs. The patient was diagnosed with rectal cancer recently, and had lab work done yesterday. She states she missed a call from clinic informing her that her hemoglobin was 7.7 and she should be seen in the ED. Patient states she does not eat much as it causes discomfort, and does not have many bowel movements. Her adds that the patient averages about 3 bowel movements per month. Denies any bloody stool, hematuria, or abnormal vaginal bleeding. Patient is a smoker, but has cut down significantly since her diagnosis. She had CT abd and chest and scope with biopsy squamous cell carcinoma. And ulcerated and lymph nodes necoritc involved. No Fever chills CP SOB Abd pain NVD. Independent Historian as detailed above. Review of External Notes I reviewed patient's cancer notes from 11/29/24 to present date. I reviewed patient's CT imaging and colonoscopy history. Past Medical History Medical History and Problem List Past Medical History: Diagnosis Date Chronic kidney disease depression Precipitate labor, delivered, current hospitalization 10/14/2016 Tobacco use during , delivered 10/14/2016 Vaginal delivery 10/14/2016 Medications ibuprofen (ADVIL,MOTRIN) 600 MG tablet Vit-Fe Fumarate-FA ( MULTIVITAMIN PLUS IRON) 27-0.8 MG TABS Surgical History Past Surgical History: Procedure Laterality Date GENITOURINARY SURGERY Left Nephrectomy as a child. 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 No distress. Head: Atraumatic. Eyes: Conjunctivae and EOM are normal. No scleral icterus. Neck: Normal range of motion. Neck supple. Cardiovascular: Normal rate, regular rhythm, normal heart sounds and intact distal pulses. Pulmonary/Chest: Breath sounds normal. No respiratory distress. Abdominal: Soft. Bowel sounds are normal. No distension. No tenderness. No rebound or guarding. Musculoskeletal: Normal range of motion. Skin: Warm and dry. No rash noted. Not diaphoretic. Diagnostics Lab Results Labs Ordered and Resulted from Time of ED Arrival to Time of ED Departure COMPREHENSIVE METABOLIC PANEL - Abnormal Result Value Sodium 136 Potassium 3.9 Carbon Dioxide (CO2) 24 Anion Gap 13 Urea Nitrogen 6.6 Creatinine 0.55 GFR Estimate >90 Calcium 8.6 (*) Chloride 99 Glucose 110 (*) Alkaline Phosphatase 374 (*) AST 27 ALT 40 Protein Total 7.2 Albumin 3.1 (*) Bilirubin Total 0.3 INR - Abnormal INR 1.39 (*) CBC WITH PLATELETS AND DIFFERENTIAL - Abnormal WBC Count 27.5 (*) RBC Count 2.71 (*) Hemoglobin 6.9 (*) Hematocrit 22.4 (*) MCV 83 MCH 25.5 (*) MCHC 30.8 (*) RDW 14.9 Platelet Count 940 (*) % Neutrophils 78 % Lymphocytes 11 % Monocytes 6 % Eosinophils 4 % Basophils 1 % Immature Granulocytes 1 NRBCs per 100 WBC 0 Absolute Neutrophils 21.5 (*) Absolute Lymphocytes 3.0 Absolute Monocytes 1.5 (*) Absolute Eosinophils 1.1 (*) Absolute Basophils 0.1 Absolute Immature Granulocytes 0.3 Absolute NRBCs 0.0 TYPE AND SCREEN, ADULT ABO/RH(D) O POS Antibody Screen Negative SPECIMEN EXPIRATION DATE [id number] PREPARE RED BLOOD CELLS (UNIT) Blood Component Type Red Blood Cells Product Code [id number] Unit Status Ready for issue Unit Number [id number] CROSSMATCH Compatible CODING SYSTEM [id number] PREPARE RED BLOOD CELLS (UNIT) TRANSFUSE RED BLOOD CELLS (UNIT) ABO/RH TYPE AND SCREEN Imaging No orders to display Independent Interpretation None ED Course Medications Administered Medications acetaminophen (TYLENOL) tablet 1,000 mg (1,000 mg Oral $Given 12/18/242022) Procedures Procedures Discussion of Management Colorectal. Hospitalist ED Course ED Course as of 12/18/24 2304 Sat Dec 18, 2024 1935 I obtained history and examined the patient as noted above. Additional Documentation None Medical Decision Making / Diagnosis ANSEEM Na Lei is a 39 year old female who presents for evaluation of abnormal labs. These occurred 1 day prior to arrival. The patient's hemoglobin was 6.9. Therefore, transfusion was initiated. The patient remain hemodynamically stable while in the emergency department. She has recent rectal cancer squamous cell highly vascualr ulcerated with CT of trunk scopes and biopsy complete. Had first labs yesterday found as reviewed abnormal. Not febrile unstable or having profuse Gi loses. Metastatic necrotic cancer. Needs admission for further workup and mgmt. Disposition Admit Diagnosis ICD-10-CM 1. Anemia, unspecified type D64.9 2. Rectal cancer (H) C20 Discharge Medications New Prescriptions No medications on file Scribe Disclosure: IOksana, am serving as a scribe at 8:10 PM on 12/18/2024 to document services personally performed by Shaheen Aggarwal MD based on my observations and the provider's statements to me. Shaheen Aggarwal MD 12/18/24 1342 ICAL DEPENDENCY NURSE * Yasmin Gomez RN - 12/18/2024 7:29 PM CST Presents to triage with c/o low hemoglobin. Patient was newly diagnosed with colon cancer. Yesterday she had labs checked and today had a message from her provider that her hgb is 7.7 and that she should be seen in ED. No blood thinners. Colonoscopy 2 days ago. Patient states she has not been able to have a BM but when she was weeks ago she was passing large clots. ICAL DEPENDENCY NURSE documented in this encounter Miscellaneous Notes * Significant Event - Darius Arriaga MD - 12/19/2024 2:58 AM CHEMICAL DEPENDENCY NURSE Significant Event Note Notified at 0245 that the patient went to leave AMA. She had already stated earlier in the evening that she may leave AMA. Went and discussed the risks of leaving AMA with the patient. Specifically we talked about lower GIbleeding, her severe anemia, elevated white blood cell count, and possibility of infection. We talked about her conditions worsening leading to possible . She states yeah I know??? I have cancer to, I am probably going to from that. She is alert, oriented and aware of the risks of leaving AMA. As such we cannot violate her autonomy and compel her to stay against her will. She can be discharged AMA. She signed the AMA form. Nursing was notified that she can leave AMA. ICAL DEPENDENCY NURSE documented in this encounter Plan of Treatment Pending Results Name Type Priority Associated Diagnoses Date /Time Blood Culture Line, venous Microbiology STAT 12/19/2024 2:42 AM CHEMICAL DEPENDENCY NURSE documented as of this encounter Procedures Procedure Name Priority Date/Time Associated Diagnosis Comments RBC AND PLATELET MORPHOLOGY STAT 12/19/2024 2:42 AM CHEMICAL DEPENDENCY NURSE CBC WITH PLATELETS AND DIFFERENTIAL STAT 12/19/2024 2:42 AM CHEMICAL DEPENDENCY NURSE CBC WITH PLATELETS & DIFFERENTIAL STAT 12/19/2024 2:42 AM CHEMICAL DEPENDENCY NURSE BLOOD CULTURE STAT 12/19/2024 2:42 AM CHEMICAL DEPENDENCY NURSE ROUTINE UA WITH MICROSCOPIC REFLEX TO CULTURE STAT 12/19/2024 1:11 AM CHEMICAL DEPENDENCY NURSE TRANSFUSE RED BLOOD CELLS (UNIT) STAT 12/18/2024 11:46 PM CHEMICAL DEPENDENCY NURSE PREPARE RED BLOOD CELLS (UNIT) STAT 12/18/2024 10:32 PM CHEMICAL DEPENDENCY NURSE CBC WITH PLATELETS AND DIFFERENTIAL STAT 12/18/2024 7:59 PM CHEMICAL DEPENDENCY NURSE TYPE AND SCREEN, ADULT STAT 7:59 PM CHEMICAL DEPENDENCY NURSE PROCALCITONIN STAT 12/18/2024 7:59 PM CHEMICAL DEPENDENCY NURSE CBC WITH PLATELETS & DIFFERENTIAL STAT 12/18/2024 7:59 PM CHEMICAL DEPENDENCY NURSE INR STAT 12/18/2024 7:59 PM CHEMICAL DEPENDENCY NURSE COMPREHENSIVE METABOLIC PANEL STAT 12/18/2024 7:59 PM CHEMICAL DEPENDENCY NURSE ABO/RH TYPE AND SCREEN STAT 7:59 PM CHEMICAL DEPENDENCY NURSE documented in this encounter Results * RBC and Platelet Morphology (12/19/2024 2:42 AM CHEMICAL DEPENDENCY NURSE) RBC Morphology Confirmed RBC Indices 12/19/2024 3:45 AM CHEMICAL DEPENDENCY NURSE [facility] LABORATORY Platelet Assessment Automated Count Confirmed. Platelet morphology is normal. Automated Count Confirmed. Platelet morphology is normal. EILEEN 12/19/2024 3:45 AM CHEMICAL DEPENDENCY NURSE [facility] LAB[facility]ATORY Blood STRUCTURE OF RIGHT UPPER LIMB / Unknown Venipuncture / Unknown 12/19/2024 2:42 AM CHEMICAL DEPENDENCY NURSE 12/19/2024 2:47 AM CHEMICAL DEPENDENCY NURSE us Darius Arriaga MD LAB - BLOOD ORDERABLES Fi nal Result [facility] LABORATORY [facility] [address] Lab (1st floor, no room number) [place] [address], [facility] * (ABNORMAL) CBC with platelets and differential (12/19/2024 2:42 AM CHEMICAL DEPENDENCY NURSE) [facility] WBC Count 23.4(H) 4.0 - 11.0 10e3/uL 12/19/2024 3:45 AM CHEMICAL DEPENDENCY NURSE [facility] LAB[facility]AT[facility] RBC Count 2.94(L) 3.80 - 5.20 10e6/uL 12/19/2024 3:45 AM CHEMICAL DEPENDENCY NURSE [facility] LAB[facility] Hemoglobin 7.7(L) 11.7 - 15.7 g/dL 12/19/2024 3:45 AM CHEMICAL DEPENDENCY NURSE [facility] LAB[facility] Hematocrit 24.5(L) 35.0 - 47.0 % 12/19/2024 3:45 AM CHEMICAL DEPENDENCY NURSE [facility] LAB[facility] MCV 83 78 - 100 fL 12/19/2024 3:45 AM CHEMICAL DEPENDENCY NURSE [facility] LAB[facility] MCH 26.2(L) 26.5 - 33.0 pg 12/19/2024 3:45 AM CHEMICAL DEPENDENCY NURSE [facility] LAB[facility]ATORY MCHC 31.4(L) 31.5 - 36.5 g/dL 12/19/2024 3:45 AM CHEMICAL DEPENDENCY NURSE [facility] LAB[facility] RDW 14.7 10.0 - 15.0 % 12/19/2024 3:45 AM CHEMICAL DEPENDENCY NURSE [facility] LAB[facility] Platelet Count 896(H) 150 - 450 10e3/uL 12/19/2024 3:45 AM CHEMICAL DEPENDENCY NURSE [facility] % Neutrophils 70 % 12/19/2024 3:45 AM CHEMICAL DEPENDENCY NURSE [facility] % Lymphocytes 15 % 12/19/2024 3:45 AM CHEMICAL DEPENDENCY NURSE [facility] % Monocytes 8 % 12/19/2024 3:45 AM CHEMICAL DEPENDENCY NURSE [facility] % Eosinophils 6 % 12/19/2024 3:45 AM CHEMICAL DEPENDENCY NURSE [facility] % Basophils 1 % 12/19/2024 3:45 AM CHEMICAL DEPENDENCY NURSE [facility] LAB[facility] % Immature Granulocytes 1 % 12/19/2024 3:45 AM CHEMICAL DEPENDENCY NURSE [facility] LAB[facility] NRBCs per 100 WBC 0 <1 /100 025 3:45 AM CHEMICAL DEPENDENCY NURSE LABORATORY Absolute Neutrophils 16.4(H) 1.6 - 8.3 10e3/uL 12/19/2024 3:45 AM CHEMICAL DEPENDENCY NURSE LABORATORY Absolute Lymphocytes 3.5 0.8 - 5.3 10e3/uL 12/19/2024 3:45 AM CHEMICAL DEPENDENCY NURSE LABORATORY Absolute Monocytes 1.8(H) 0.0 - 1.3 10e3/uL 12/19/2024 3:45 AM CHEMICAL DEPENDENCY NURSE LABORATORY Absolute Eosinophils 1.4(H) 0.0 - 0.7 10e3/uL 12/19/2024 3:45 AM CHEMICAL DEPENDENCY NURSE LABORATORY Absolute Basophils 0.1 0.0 - 0.2 10e3/uL 12/19/2024 3:45 AM CHEMICAL DEPENDENCY NURSE LABORATORY Absolute Immature Granulocytes 0.2 <=0.4 10e3/uL 12/19/2024 3:45 AM CHEMICAL DEPENDENCY NURSE LABORATORY Absolute NRBCs 0.0 10e3/uL 12/19/2024 3:45 AM CHEMICAL DEPENDENCY NURSE LABORATORY Blood STRUCTURE OF RIGHT UPPER LIMB / Unknown Venipuncture / Unknown 12/19/2024 2:42 AM CHEMICAL DEPENDENCY NURSE 12/19/2024 2:47 AM CHEMICAL DEPENDENCY NURSE Result [facility] Darius Arriaga MD LAB - BLOOD ORDERABLES Fi nal Result LABORATORY [facility] [address] [facility] Lab (1st floor, no room number) [place] [address], [facility] * Transfuse red blood cells (unit) (12/19/2024 2:00 AM CHEMICAL DEPENDENCY NURSE) Shaheen Aggarwal MD BLOOD TRANSFUSION ORDERABLES Final Result * Transfuse red blood cells (unit), 1 Units (12/19/2024 2:00 AM CHEMICAL DEPENDENCY NURSE) Shaheen Aggarwal MD BLOOD TRANSFUSION ORDERABLES Final Result * (ABNORMAL) UA with Microscopic reflex to Culture (12/19/2024 1:11 AM CHEMICAL DEPENDENCY NURSE) Color Urine Straw Colorless, Straw, Light Yellow, Yellow 12/19/2024 1:42 AM CHEMICAL DEPENDENCY NURSE LABORATORY Appearance Urine Clear Clear 12/19/19 1:42 AM CHEMICAL DEPENDENCY NURSE LABORATORY Glucose Urine Negative Negative mg/dL 12/19/2024 1:42 AM CHEMICAL DEPENDENCY NURSE LABORATORY Bilirubin Urine Negative Negative 1:42 AM CHEMICAL DEPENDENCY NURSE RH LABORATORY Ketones Urine Negative Negative mg/dL 12/19/2024 1:42 AM CHEMICAL DEPENDENCY NURSE RH LABORATORY Specific [place] Urine 1.003 1.003 - 1.035 12/19/2024 1:42 AM CHEMICAL DEPENDENCY NURSE [facility] LABORAT[facility] Blood Urine Negative Negative 12/19/2024 1:42 AM CHEMICAL DEPENDENCY NURSE [facility] LAB[facility]AT[facility] pH Urine 6.0 5.0 - 7.0 12/19/2024 1:42 AM CHEMICAL DEPENDENCY NURSE [facility] LAB[facility] Protein Albumin Urine Negative Negative mg/dL 12/19/2024 1:42 AM CHEMICAL DEPENDENCY NURSE [facility] LAB[facility] Urobilinogen Urine Normal Normal, 2.0 mg/dL 12/19/2024 1:42 AM CHEMICAL DEPENDENCY NURSE [facility] LAB[facility] Nitrite Urine Negative Negative 12/19/2024 1:42 AM CHEMICAL DEPENDENCY NURSE [facility] LAB[facility] Leukocyte Esterase Urine Negative Negative 12/19/2024 1:42 AM CHEMICAL DEPENDENCY NURSE LABORATORY RBC Urine 0 <=2 /HPF 12/19/2024 1:42 AM CHEMICAL DEPENDENCY NURSE [facility] LAB[facility] WBC Urine <1 <=5 /HPF 12/19/2024 1:42 AM CHEMICAL DEPENDENCY NURSE LABORATORY Squamous Epithelials Urine 2(H) <=1 /HPF 12/19/2024 1:42 AM CHEMICAL DEPENDENCY NURSE LABORATORY Urine URINE SPECIMEN OBTAINED BY CLEAN CATCH PROCEDURE / Unknown Non-blood Collection / Unknown 12/19/2024 1:11 AM CHEMICAL DEPENDENCY NURSE 12/19/2024 1:15 AM CHEMICAL DEPENDENCY NURSE Narrative [facility] LABORATORY - 12/19/2024 1:42 AM CHEMICAL DEPENDENCY NURSE Urine Culture not indicated us Darius Arriaga MD LAB - URINE ORDERABLES Fi nal Result LABORATORY [facility] [address] Lab (1st floor, no room number) [place] [address] * Prepare red blood cells (unit) (12/18/2024 10:32 PM CHEMICAL DEPENDENCY NURSE) Pathologist [facility] Blood Component Type Red Blood Cells RH BLOOD BANK Product Code [id number] RH BLOO D BANK Unit Status Transfused RH BLOO D BANK Unit Number [id number] RH B LOOD BANK CROSSMATCH Compatible RH BLOOD BANK CODING SYSTEM [id number] RH BLO OD BANK ISSUE DATE AND TIME [id number] RH BLOOD BANK UNIT ABO/RH O+ RH BLOOD BANK UNIT TYPE ISBT 5100 RH BL OOD BANK 12/18/2024 10:3 2 PM CHEMICAL DEPENDENCY NURSE Shaheen Aggarwal MD BLOOD BANK PRODUCT ORDERABLE S Final Result RH BLOOD BANK [address] [place] [address], [facility] * Procalcitonin (12/18/2024 7:59 PM CHEMICAL DEPENDENCY NURSE) Procalcitonin 0.09 <0.50 ng/mL 12/19/2024 1:49 AM CHEMICAL DEPENDENCY NURSE [facility] LABORATORY Comment: Interpretation and Recommendations <0.5 ng/mL: Systemic bacterial infection unlikely. Local bacterial infection is possible. 0.5-1.99 ng/mL: Systemic bacterial infection possible, but various other conditions are known to induce PCT as well. >=2.00 ng/mL: Systemic bacterial infection likely, unless other causes are known. Decision to start antibiotics should not be based on procalcitonin level alone. See Procalcitonin Guidance document for more details. [email or web address] Factors that may affect PCT levels (not all-inclusive): - Increased PCT level Severe trauma/alex Invasive surgery Cooling therapy after cardiac arrest/surgery Treatment with agents which stimulate cytokines Acute kidney injury Chronic kidney disease and end stage renal disease Acute graft vs host disease Non-specific shock causing decreased organ perfusion and/or infarction - Normal or unchanged PCT level Early in infections (if low and infection is suspected, repeating in 6-12 hours is recommended) Chronic infections (endocarditis, osteomyelitis, prosthetic device/graft infections) Localized infections (cellulitis, wound infections, intra-abdominal abscess) Note: PCT has not been extensively studied in /, pediatrics, severe immunosuppression, and cystic fibrosis. Blood STRUCTURE OF RIGHT UPPER LIMB / Unknown Venipuncture / Unknown 12/18/2024 7:59 PM CHEMICAL DEPENDENCY NURSE 12/18/2024 8:07 PM CHEMICAL DEPENDENCY NURSE us Darius Arriaga MD LAB - BLOOD ORDERABLES Fi nal Result RH LABORATORY [facility] [address] [facility] Lab (1st floor, no room number) [place] [address] * Adult Type and Screen (12/18/2024 7:59 PM CHEMICAL DEPENDENCY NURSE) ABO/RH(D) O POS 12/18/2024 7:36 PM CHEMICAL DEPENDENCY NURSE RH BLOOD BANK Antibody Screen Negative Negative 12/18/2024 7:36 PM CHEMICAL DEPENDENCY NURSE RH BLOOD BANK SPECIMEN EXPIRATION DATE [id number] 12/18/2024 7:36 PM CHEMICAL DEPENDENCY NURSE RH BLOOD BANK Blood STRUCTURE OF RIGHT UPPER LIMB / Unknown Venipuncture / Unknown 12/18/2024 7:59 PM CHEMICAL DEPENDENCY NURSE 12/18/2024 8:07 PM CHEMICAL DEPENDENCY NURSE us Shaheen Aggarwal MD LAB - BLOOD BANK TEST ORDER Final Result Performing Organization Address City/[facility]/ZIP Co de Phone Number BLOOD BANK [address] [place] [address] * (ABNORMAL) CBC with platelets and differential (12/18/2024 7:59 PM CHEMICAL DEPENDENCY NURSE) WBC Count 27.5(H) 4.0 - 11.0 10e3/uL 12/18/2024 9:00 PM CHEMICAL DEPENDENCY NURSE RH LABORATORY RBC Count 2.71(L) 3.80 - 5.20 10e6/uL 12/18/2024 9:00 PM CHEMICAL DEPENDENCY NURSE RH LABORATORY Hemoglobin 6.9(LL) 11.7 - 15.7 g/dL 12/18/2024 9:00 PM CHEMICAL DEPENDENCY NURSE RH LABORATORY Hematocrit 22.4(L) 35.0 - 47.0 % 12/18/2024 9:00 PM CHEMICAL DEPENDENCY NURSE RH LABORATORY MCV 83 78 - 100 fL 12/18/2024 9:00 PM CHEMICAL DEPENDENCY NURSE RH LABORATORY MCH 25.5(L) 26.5 - 33.0 pg 12/18/2024 9:00 PM CHEMICAL DEPENDENCY NURSE RH LABORATORY MCHC 30.8(L) 31.5 - 36.5 g/dL 12/18/2024 9:00 PM CHEMICAL DEPENDENCY NURSE LABORATORY RDW 14.9 10.0 - 15.0 % 12/18/2024 9:00 PM CHEMICAL DEPENDENCY NURSE LABORATORY Platelet Count 940(H) 150 - 450 10e3/uL 12/18/2024 9:00 PM CHEMICAL DEPENDENCY NURSE LABORATORY % Neutrophils 78 % 12/18/2024 9:00 PM CHEMICAL DEPENDENCY NURSE LABORATORY % Lymphocytes 11 % 12/18/2024 9:00 PM CHEMICAL DEPENDENCY NURSE LABORATORY % Monocytes 6 % 12/18/2024 9:00 PM CHEMICAL DEPENDENCY NURSE LABORATORY % Eosinophils 4 % 12/18/2024 9:00 PM CHEMICAL DEPENDENCY NURSE LABORATORY % Basophils 1 % 12/18/2024 9:00 PM CHEMICAL DEPENDENCY NURSE LABORATORY % Immature Granulocytes 1 % 12/18/2024 9:00 PM CHEMICAL DEPENDENCY NURSE LABORATORY NRBCs per 100 WBC 0 <1 /100 025 9:00 PM CHEMICAL DEPENDENCY NURSE LABORATORY Absolute Neutrophils 21.5(H) 1.6 - 8.3 10e3/uL 12/18/2024 9:00 PM CHEMICAL DEPENDENCY NURSE LABORATORY Absolute Lymphocytes 3.0 0.8 - 5.3 10e3/uL 12/18/2024 9:00 PM CHEMICAL DEPENDENCY NURSE LABORATORY Absolute Monocytes 1.5(H) 0.0 - 1.3 10e3/uL 12/18/2024 9:00 PM CHEMICAL DEPENDENCY NURSE LABORATORY Absolute Eosinophils 1.1(H) 0.0 - 0.7 10e3/uL 12/18/2024 9:00 PM CHEMICAL DEPENDENCY NURSE LABORATORY Absolute Basophils 0.1 0.0 - 0.2 10e3/uL 12/18/2024 9:00 PM CHEMICAL DEPENDENCY NURSE LABORATORY Absolute Immature Granulocytes 0.3 <=0.4 10e3/uL 12/18/2024 9:00 PM CHEMICAL DEPENDENCY NURSE LABORATORY Absolute NRBCs 0.0 10e3/uL 12/18/2024 9:00 PM CHEMICAL DEPENDENCY NURSE LABORATORY Blood STRUCTURE OF RIGHT UPPER LIMB / Unknown Venipuncture / Unknown 12/18/2024 7:59 PM CHEMICAL DEPENDENCY NURSE 12/18/2024 8:07 PM CHEMICAL DEPENDENCY NURSE Shaheen Aggarwal MD LAB - BLOOD ORDERABLES Final Result LABORATORY [facility] [address] Lab (1st floor, no room number) [place] [address] * (ABNORMAL) INR (12/18/2024 7:59 PM CHEMICAL DEPENDENCY NURSE) INR 1.39(H) 0.85 - 1.15 12/18/2024 8:51 PM CHEMICAL DEPENDENCY NURSE LABORATORY Blood STRUCTURE OF RIGHT UPPER LIMB / Unknown Venipuncture / Unknown 12/18/2024 7:59 PM CHEMICAL DEPENDENCY NURSE 12/18/2024 8:07 PM CHEMICAL DEPENDENCY NURSE Shaheen Aggarwal MD LAB - BLOOD ORDERABLES Final Result LABORATORY [facility] [address] Lab (1st floor, no room number) [place] [address] * (ABNORMAL) Comprehensive metabolic panel (12/18/2024 7:59 PM CHEMICAL DEPENDENCY NURSE) Sodium 136 135 - 145 mmol/L 12/18/2024 8:34 PM [facility] LAB[facility] Potassium 3.9 3.4 - 5.3 mmol/L 12/18/2024 8:34 PM [facility] LAB[facility] Carbon Dioxide (CO2) 24 22 - 29 mmol/L 12/18/2024 8:34 PM [facility] Anion Gap 13 7 - 15 mmol/L 12/18/2024 8:34 PM [facility] Urea Nitrogen 6.6 6.0 - 20.0 mg/dL 12/18/2024 8:34 PM [facility] Creatinine 0.55 0.51 - 0.95 mg/dL 12/18/2024 8:34 PM [facility] GFR Estimate >90 >60 mL/min/1.7 3m2 12/18/2024 8:34 PM [facility] Comment:eGFR calculated usin 2020 CKD-EPI equation. Calcium 8.6(L) 8.8 - 10.4 mg/dL 12/18/2024 8:34 PM [facility] Chloride 99 98 - 107 mmol/L 12/18/2024 8:34 PM [facility] Glucose 110(H) 70 - 99 mg/dL 12/18/2024 8:34 PM CHEMICAL DEPENDENCY NURSE RH LABORATORY Alkaline Phosphatase 374(H) 40 - 150 U/L 12/18/2024 8:34 PM CHEMICAL DEPENDENCY NURSE LABORATORY AST 27 0 - 45 U/L 12/18/2024 8:34 PM CHEMICAL DEPENDENCY NURSE LABORATORY ALT 40 0 - 50 U/L 12/18/2024 8:34 PM CHEMICAL DEPENDENCY NURSE LABORATORY Protein Total 7.2 6.4 - 8.3 g/dL 12/18/2024 8:34 PM CHEMICAL DEPENDENCY NURSE LABORATORY Albumin 3.1(L) 3.5 - 5.2 g/dL 12/18/2024 8:34 PM CHEMICAL DEPENDENCY NURSE LABORATORY Bilirubin Total 0.3 <=1.2 mg/dL 12/18/2024 8:34 PM CHEMICAL DEPENDENCY NURSE LABORATORY Blood STRUCTURE OF RIGHT UPPER LIMB / Unknown Venipuncture / Unknown 12/18/2024 7:59 PM CHEMICAL DEPENDENCY NURSE 12/18/2024 8:07 PM CHEMICAL DEPENDENCY NURSE Shaheen Aggarwal MD LAB - BLOOD ORDERABLES Final Result LABORATORY [facility] [address] [facility] Lab (1st floor, no room number) [place] [address], [facility] documented in this encounter Visit Diagnoses Diagnosis Anemia, unspecified type Rectal cancer (H) Malignant neoplasm of rectum Rectal cancer (H) Malignant neoplasm of rectum Anemia, unspecified type documented in this encounter Admitting Diagnoses Diagnosis Rectal cancer (H) Malignant neoplasm of rectum Anemia, unspecified type documented in this encounter Administered Medications Inactive Administered Medications - up to 3 most recent administrations Medication Order MAR Action Action Date Dose Rate Site acetaminophen (TYLENOL) tablet 1,000 mg 1,000 mg, Oral, ONCE, On 12/18/24 at 2024, For 1 dose, Maximum acetaminophen dose from all sources = 75 mg/kg/day not to exceed 4 gram $Given 12/18/2024 8:23 PM CHEMICAL DEPENDENCY NURSE 1,000 mg documented in this encounter Active and Recently Administered Medications Times are shown in CHEMICAL DEPENDENCY NURSE. Scheduled Medication Order 12/17/2024 12/18/2024 12/19/2024 acetaminophen (TYLENOL) tablet 1,000 mg (COMPLETED) 1,000 mg, Oral, ONCE, On 12/18/24 at 2024, For 1 dose, Maximum acetaminophen dose from all sources = 75 mg/kg/day not to exceed 4 gram 2022 ($Given - Provider: Katt Ngo RN) documented in this encounter Care Teams Crystal Slicer Relationship Specialty Start Date End Date Clinic, [address] [address] PCP - General 04/15/23 documented as of this encounter
--- OUTSIDE RECORDS SUMMARY | 2024-12-20 22:27 | XMS_ITS | Encounter Summary ---
Author Organization [facility] Address [address] [place] [address]. [place] [address] Care Team Providers Care Digital Advertising Analyst Name Role Phone Hao Rankin Primary Care Provider [facility], Julianna Bui Primary Care Pr ovider Encounter Details Date Type Department Care Team (Late st Contact Info) Description 11/22/2021 Documentation Only INTERFACED REPORT Unknown, Provider Social History Tobacco Use Types Packs/Day Years Used Date Smoking Tobacco: Every Day Cigarettes 1 7 Smokeless Tobacco: Never Alcohol Use Standard Drinks/Week Comments No 10 (1 standard drink = 0.6 oz pu re alcohol) Comments No Sex and Gender Information Value Date Recorded Sex Assigned at Not on file Legal Sex Female 3:27 AM EMERGENCY VETERINARY ASSISTANT Gender Identity Not on file Sexual Orientation Not on file COVID-19 Exposure Response Date Recorded In the last month, have you been in contact with someone who was confirmed or suspected to have Coronavirus / COVID-19? No / Unsure 11/22/2021 3:52 PM EMERGENCY VETERINARY ASSISTANT documented as of this encounter Plan of Treatment Not on file documented as of this encounter Visit Diagnoses Not on filedocumented in this encounter Care Teams Digital Advertising Analyst Relationship Specialty Start Date End Date Hao Rankin PCP - General Family Practice 06/27/[address] [place], [place] [address] [address] [place] [address] PCP - General 04/15/23 documented as of this encounter
--- OUTSIDE RECORDS SUMMARY | 2024-12-20 22:27 | XMS_ITS | Referral Summary ---
Author Organization [facility] Address [address] [place] [address]. [place] [address] Care Team Providers Care Internet Cafe Manager Name Role Phone [facility], [facility] Pr ovider Encounters Date Type Department Care Team Description 12/18/2024 7:31 PM LINE HAUL OWNER OPERATOR - 12/19/2024 3:18 AM LINE HAUL OWNER OPERATOR Hospital Encounter [facility] Emergency Dept [address] [place] [address] Shaheen Aggarwal MD Taylor, Jeremy James, MD Anemia, unspecified type; Rectal cancer (H) Discharge Disposition: Left Against Medical Advice 12/18/2024 Travel from Last 3 Months Allergies No known active allergies Medications Vit-Fe Fumarate-FA ( MULTIVITAMIN PLUS IRON) 27-0.8 MG TABS Take 1 tablet by mouth daily Active ibuprofen (ADVIL,MOTRIN) 600 MG tabletIndications :Vaginal delivery Take 1 tablet (600 mg) by mouth every 6 hours as needed for other (cramping) 30 tablet 0 10/15/2016 Active Active Problems Problem Noted Date Diagnosed Date Rectal cancer 12/18/2024 Anemia, unspecified type 12/18/2024 Vaginal delivery 10/14/2016 Tobacco use during , delivered 10/14/20 16 Precipitate labor, delivered, current hospitaliz ation 10/14/2016 CARDIOVASCULAR SCREENING; LDL GOAL LESS THAN 160 09/16/2010 Acid reflux 07/09/2010 Resolved Problems Problem Noted Date Diagnosed Date Resolved Date Indication for care in labor or delivery 10/14/2016 10/14/2016 Labor and delivery indicatio n for care or intervention 10/02/2016 10/14/2016 Vaginal delivery 07/27/2015 10/14/2016 Indication for care or inter vention related to labor and delivery 07/26/2015 10/14/2016 Overview (09/18/2015): Diagnosis updated by automated process. Provider to review and confirm. Labor and delivery, indication for care 07/26/2015 10/14/2016 Nondependent alcohol abuse 07/09/2010 0 07/09/2010 Immunizations Name Administration Dates Next Due MMR 10/15/2016 TDAP Vaccine (Adacel) 07/09/2010 Social History Tobacco Use Types Packs/Day Years Used Date Smoking Tobacco: Every Day Cigarettes 1 7 Smokeless Tobacco: Never Tobacco Cessation:Ready to Q uit: No Alcohol Use Standard Drinks/Week Comments No 10 (1 standard drink = 0.6 oz pu re alcohol) Adolescent Education Answer Date Record ed Getting School Help Needed Not on file 08/17 Comments No Sex and Gender Information Value Date Recorded Sex Assigned at Not on file Legal Sex Female 3:27 AM LINE HAUL OWNER OPERATOR Gender Identity Not on file Sexual Orientation Not on file Last Filed Vital Signs Vital Sign Reading Time Taken Comments Blood Pressure 104/62 12/19/2024 1:58 AM LINE HAUL OWNER OPERATOR Pulse 97 12/19/2024 1:58 AM LINE HAUL OWNER OPERATOR Temperature 36.7 C (98.1 F) 12/19/2024 1:58 AM LINE HAUL OWNER OPERATOR Respiratory Rate 20 12/19/2024 1:58 AM LINE HAUL OWNER OPERATOR Oxygen Saturation 98% 12/19/2024 1:04 AM LINE HAUL OWNER OPERATOR Inhaled Oxygen Concentration - - Weight 56.5 kg (124 lb 9 oz) 12/18/2024 7:27 PM LINE HAUL OWNER OPERATOR Height 162.6 cm (5' 4) 12/18/2024 9:01 PM LINE HAUL OWNER OPERATOR Body Mass Index 21.38 12/18/2024 7:27 PM LINE HAUL OWNER OPERATOR Plan of Treatment Not on file Procedures Procedure Name Priority Date/Time Associated Diagnosis Comments CBC WITH PLATELETS & DIFFERENTIAL STAT 12/19/2024 2:42 AM LINE HAUL OWNER OPERATOR BLOOD CULTURE STAT 12/19/2024 2:42 AM LINE HAUL OWNER OPERATOR RBC AND PLATELET MORPHOLOGY STAT 12/19/2024 2:42 AM LINE HAUL OWNER OPERATOR CBC WITH PLATELETS AND DIFFERENTIAL STAT 12/19/2024 2:42 AM LINE HAUL OWNER OPERATOR ROUTINE UA WITH MICROSCOPIC REFLEX TO CULTURE STAT 12/19/2024 1:11 AM LINE HAUL OWNER OPERATOR TRANSFUSE RED BLOOD CELLS (UNIT) STAT 12/18/2024 11:46 PM LINE HAUL OWNER OPERATOR PREPARE RED BLOOD CELLS (UNIT) STAT 12/18/2024 10:32 PM LINE HAUL OWNER OPERATOR ABO/RH TYPE AND SCREEN STAT 7:59 PM LINE HAUL OWNER OPERATOR CBC WITH PLATELETS & DIFFERENTIAL STAT 12/18/2024 7:59 PM LINE HAUL OWNER OPERATOR TYPE AND SCREEN, ADULT STAT 7:59 PM LINE HAUL OWNER OPERATOR PROCALCITONIN STAT 12/18/2024 7:59 PM LINE HAUL OWNER OPERATOR CBC WITH PLATELETS AND DIFFERENTIAL STAT 12/18/2024 7:59 PM LINE HAUL OWNER OPERATOR INR STAT 12/18/2024 7:59 PM LINE HAUL OWNER OPERATOR COMPREHENSIVE METABOLIC PANEL STAT 12/18/2024 7:59 PM LINE HAUL OWNER OPERATOR HIV ANTIGEN ANTIBODY COMBO Routine 03/25/2016 from Last 3 Months or Most Recently Relevant to Health Maintenance Results * RBC and Platelet Morphology (12/19/2024 2:42 AM LINE HAUL OWNER OPERATOR) RBC Morphology Confirmed RBC Indices 12/19/2024 3:45 AM LINE HAUL OWNER OPERATOR [facility] Platelet Assessment Automated Count Confirmed. Platelet morphology is normal. Automated Count Confirmed. Platelet morphology is normal. EILEEN 12/19/2024 3:45 AM LINE HAUL OWNER OPERATOR [facility] Blood STRUCTURE OF RIGHT UPPER LIMB / Unknown Venipuncture / Unknown 12/19/2024 2:42 AM LINE HAUL OWNER OPERATOR 12/19/2024 2:47 AM LINE HAUL OWNER OPERATOR us Darius Arriaga MD LAB - BLOOD ORDERABLES Fi nal Result [facility] LAB[facility]ATORY [facility] Lab [address] Lab (1st floor, no room number) [place] [address], [facility] * (ABNORMAL) CBC with platelets and differential (12/19/2024 2:42 AM LINE HAUL OWNER OPERATOR) Only the most recent of2 resultswithin the time period is included. WBC Count 23.4(H) 4.0 - 11.0 10e3/uL 12/19/2024 3:45 AM LINE HAUL OWNER OPERATOR [facility] RBC Count 2.94(L) 3.80 - 5.20 10e6/uL 12/19/2024 3:45 AM LINE HAUL OWNER OPERATOR [facility] Hemoglobin 7.7(L) 11.7 - 15.7 g/dL 12/19/2024 3:45 AM LINE HAUL OWNER OPERATOR [facility] Hematocrit 24.5(L) 35.0 - 47.0 % 12/19/2024 3:45 AM LINE HAUL OWNER OPERATOR [facility] MCV 83 78 - 100 fL 12/19/2024 3:45 AM LINE HAUL OWNER OPERATOR [facility] MCH 26.2(L) 26.5 - 33.0 pg 12/19/2024 3:45 AM LINE HAUL OWNER OPERATOR [facility] MCHC 31.4(L) 31.5 - 36.5 g/dL 12/19/2024 3:45 AM LINE HAUL OWNER OPERATOR [facility] RDW 14.7 10.0 - 15.0 % 12/19/2024 3:45 AM LINE HAUL OWNER OPERATOR [facility] Platelet Count 896(H) 150 - 450 10e3/uL 12/19/2024 3:45 AM LINE HAUL OWNER OPERATOR [facility] % Neutrophils 70 % 12/19/2024 3:45 AM LINE HAUL OWNER OPERATOR [facility] % Lymphocytes 15 % 12/19/2024 3:45 AM LINE HAUL OWNER OPERATOR [facility] % Monocytes 8 % 12/19/2024 3:45 AM LINE HAUL OWNER OPERATOR [facility] % Eosinophils 6 % 12/19/2024 3:45 AM LINE HAUL OWNER OPERATOR [facility] % Basophils 1 % 12/19/2024 3:45 AM LINE HAUL OWNER OPERATOR [facility] % Immature Granulocytes 1 % 12/19/2024 3:45 AM LINE HAUL OWNER OPERATOR [facility] NRBCs per 100 WBC 0 <1 /100 025 3:45 AM LINE HAUL OWNER OPERATOR [facility] Absolute Neutrophils 16.4(H) 1.6 - 8.3 10e3/uL 12/19/2024 3:45 AM LINE HAUL OWNER OPERATOR [facility] Absolute Lymphocytes 3.5 0.8 - 5.3 10e3/uL 12/19/2024 3:45 AM LINE HAUL OWNER OPERATOR LABORATORY Absolute Monocytes 1.8(H) 0.0 - 1.3 10e3/uL 12/19/2024 3:45 AM LINE HAUL OWNER OPERATOR LABORATORY Absolute Eosinophils 1.4(H) 0.0 - 0.7 10e3/uL 12/19/2024 3:45 AM LINE HAUL OWNER OPERATOR LABORATORY Absolute Basophils 0.1 0.0 - 0.2 10e3/uL 12/19/2024 3:45 AM LINE HAUL OWNER OPERATOR LABORATORY Absolute Immature Granulocytes 0.2 <=0.4 10e3/uL 12/19/2024 3:45 AM LINE HAUL OWNER OPERATOR LABORATORY Absolute NRBCs 0.0 10e3/uL 12/19/2024 3:45 AM LINE HAUL OWNER OPERATOR LABORATORY Blood STRUCTURE OF RIGHT UPPER LIMB / Unknown Venipuncture / Unknown 12/19/2024 2:42 AM LINE HAUL OWNER OPERATOR 12/19/2024 2:47 AM LINE HAUL OWNER OPERATOR Darius Arriaga MD LAB - BLOOD ORDERABLES Fi nal Result LABORATORY [facility] Lab [address] [facility] Lab (1st floor, no room number) [place] [address] * Transfuse red blood cells (unit) (12/19/2024 2:00 AM LINE HAUL OWNER OPERATOR) us Shaheen Aggarwal MD BLOOD TRANSFUSION ORDERABLES Final Result * (ABNORMAL) UA with Microscopic reflex to Culture (12/19/2024 1:11 AM LINE HAUL OWNER OPERATOR) Color Urine Straw Colorless, Straw, Light Yellow, Yellow 12/19/2024 1:42 AM LINE HAUL OWNER OPERATOR LABORATORY Appearance Urine Clear Clear 12/19/19 1:42 AM LINE HAUL OWNER OPERATOR LABORATORY Glucose Urine Negative Negative mg/dL 12/19/2024 1:42 AM LINE HAUL OWNER OPERATOR LABORATORY Bilirubin Urine Negative Negative 1:42 AM LINE HAUL OWNER OPERATOR LABORATORY Ketones Urine Negative Negative mg/dL 12/19/2024 1:42 AM LINE HAUL OWNER OPERATOR LABORATORY Specific [place] Urine 1.003 1.003 - 1.035 12/19/2024 1:42 AM LINE HAUL OWNER OPERATOR LABORATORY Blood Urine Negative Negative 12/19/2024 1:42 AM LINE HAUL OWNER OPERATOR [facility] pH Urine 6.0 5.0 - 7.0 12/19/2024 1:42 AM LINE HAUL OWNER OPERATOR [facility] Protein Albumin Urine Negative Negative mg/dL 12/19/2024 1:42 AM LINE HAUL OWNER OPERATOR [facility] Urobilinogen Urine Normal Normal, 2.0 mg/dL 12/19/2024 1:42 AM LINE HAUL OWNER OPERATOR [facility] Nitrite Urine Negative Negative 12/19/2024 1:42 AM LINE HAUL OWNER OPERATOR [facility] Leukocyte Esterase Urine Negative Negative 12/19/2024 1:42 AM LINE HAUL OWNER OPERATOR [facility] RBC Urine 0 <=2 /HPF 12/19/2024 1:42 AM LINE HAUL OWNER OPERATOR [facility] WBC Urine <1 <=5 /HPF 12/19/2024 1:42 AM LINE HAUL OWNER OPERATOR [facility] Squamous Epithelials Urine 2(H) <=1 /HPF 12/19/2024 1:42 AM LINE HAUL OWNER OPERATOR [facility] Urine URINE SPECIMEN OBTAINED BY CLEAN CATCH PROCEDURE / Unknown Non-blood Collection / Unknown 12/19/2024 1:11 AM LINE HAUL OWNER OPERATOR 12/19/2024 1:15 AM LINE HAUL OWNER OPERATOR Narrative [facility] LAB[facility] - 12/19/2024 1:42 AM LINE HAUL OWNER OPERATOR Urine Culture not indicated us Darius Arriaga MD LAB - URINE ORDERABLES Fi nal Result [facility] Acute Care Lab [address] Lab (1st floor, no room number) [place] [address] * Prepare red blood cells (unit) (12/18/2024 10:32 PM LINE HAUL OWNER OPERATOR) Blood Component Type Red Blood Cells RH BLOOD BANK Product Code [id number] RH BLOO D BANK Unit Status Transfused RH BLOO D BANK Unit Number [id number] RH B LOOD BANK CROSSMATCH Compatible RH BLOOD BANK CODING SYSTEM [id number] RH BLO OD BANK ISSUE DATE AND TIME [id number] RH BLOOD BANK UNIT ABO/RH O+ RH BLOOD BANK UNIT TYPE ISBT 5100 RH BL OOD BANK 12/18/2024 10:3 2 PM LINE HAUL OWNER OPERATOR us Shaheen Aggarwal MD BLOOD BANK PRODUCT ORDERABLE S Final Result Performing Organization Address City/[facility]/ZIP Co de Phone Number BLOOD BANK [address] [place] [address], [facility] * Adult Type and Screen (12/18/2024 7:59 PM LINE HAUL OWNER OPERATOR) ABO/RH(D) O POS 12/18/2024 7:36 PM LINE HAUL OWNER OPERATOR RH BLOOD BANK Antibody Screen Negative Negative 12/18/2024 7:36 PM LINE HAUL OWNER OPERATOR RH BLOOD BANK SPECIMEN EXPIRATION DATE [id number] 12/18/2024 7:36 PM LINE HAUL OWNER OPERATOR BLOOD BANK Blood STRUCTURE OF RIGHT UPPER LIMB / Unknown Venipuncture / Unknown 12/18/2024 7:59 PM LINE HAUL OWNER OPERATOR 12/18/2024 8:07 PM LINE HAUL OWNER OPERATOR Shaheen Aggarwal MD LAB - BLOOD BANK TEST ORDER Final Result Performing Organization Address [facility] Co de Phone Number BLOOD BANK [address] [place] [address], [facility] * Procalcitonin (12/18/2024 7:59 PM LINE HAUL OWNER OPERATOR) Procalcitonin 0.09 <0.50 ng/mL 12/19/2024 1:49 AM LINE HAUL OWNER OPERATOR LABORATORY Comment: Interpretation and Recommendations <0.5 ng/mL: Systemic bacterial infection unlikely. Local bacterial infection is possible. 0.5-1.99 ng/mL: Systemic bacterial infection possible, but various other conditions are known to induce PCT as well. >=2.00 ng/mL: Systemic bacterial infection likely, unless other causes are known. Decision to start antibiotics should not be based on procalcitonin level alone. See Procalcitonin Guidance document for more details. [email or web address] Factors that may affect PCT levels (not [...] Unknown Venipuncture / Unknown 12/18/2024 7:59 PM LINE HAUL OWNER OPERATOR 12/18/2024 8:07 PM LINE HAUL OWNER OPERATOR us Darius Arriaga MD LAB - BLOOD ORDERABLES Fi nal Result [facility] Lab [address] [place] Lab (1st floor, no room number) [address] * (ABNORMAL) INR (12/18/2024 7:59 PM LINE HAUL OWNER OPERATOR) INR 1.39(H) 0.85 - 1.15 12/18/2024 8:51 PM LINE HAUL OWNER OPERATOR LABORATORY Blood STRUCTURE OF RIGHT UPPER LIMB / Unknown Venipuncture / Unknown 12/18/2024 7:59 PM LINE HAUL OWNER OPERATOR 12/18/2024 8:07 PM LINE HAUL OWNER OPERATOR Shaheen Aggarwal MD LAB - BLOOD ORDERABLES Final Result [facility] Lab [address] Lab (1st floor, no room number) [address] * (ABNORMAL) Comprehensive metabolic panel (12/18/2024 7:59 PM LINE HAUL OWNER OPERATOR) Sodium 136 135 - 145 mmol/L 12/18/2024 8:34 PM LINE HAUL OWNER OPERATOR LABORATORY Potassium 3.9 3.4 - 5.3 mmol/L 12/18/2024 8:34 PM LINE HAUL OWNER OPERATOR LABORATORY Carbon Dioxide (CO2) 24 22 - 29 mmol/L 12/18/2024 8:34 PM LINE HAUL OWNER OPERATOR LABORATORY Anion Gap 13 7 - 15 mmol/L 12/18/2024 8:34 PM LINE HAUL OWNER OPERATOR LABORATORY Urea Nitrogen 6.6 6.0 - 20.0 mg/dL 12/18/2024 8:34 PM [facility] Creatinine 0.55 0.51 - 0.95 mg/dL 12/18/2024 8:34 PM [facility] GFR Estimate >90 >60 mL/min/1.7 3m2 12/18/2024 8:34 PM [facility] Comment:eGFR calculated usin 2020 CKD-EPI equation. Calcium 8.6(L) 8.8 - 10.4 mg/dL 12/18/2024 8:34 PM [facility] Chloride 99 98 - 107 mmol/L 12/18/2024 8:34 PM [facility] Glucose 110(H) 70 - 99 mg/dL 12/18/2024 8:34 PM [facility] Alkaline Phosphatase 374(H) 40 - 150 U/L 12/18/2024 8:34 PM [facility] AST 27 0 - 45 U/L 12/18/2024 8:34 PM [facility] ALT 40 0 - 50 U/L 12/18/2024 8:34 PM [facility] Protein Total 7.2 6.4 - 8.3 g/dL 12/18/2024 8:34 PM [facility] Albumin 3.1(L) 3.5 - 5.2 g/dL 12/18/2024 8:34 PM [facility] Bilirubin Total 0.3 <=1.2 mg/dL 12/18/2024 8:34 PM [facility] Blood STRUCTURE OF RIGHT UPPER LIMB / Unknown Venipuncture / Unknown 12/18/2024 7:59 PM LINE HAUL OWNER OPERATOR 12/18/2024 8:07 PM [facility] Shaheen Aggarwal MD LAB - BLOOD ORDERABLES Final Result LABORATORY [facility] [address] [facility] ([facility], no room number) [place] [address], [facility] * HIV Antigen Antibody Combo (03/25/2016) HIV Antigen Antibody Combo Nonreactive Blood specimen (specimen) Patient Reported LAB - BLOOD ORDERABLES Final Re sult from Last 3 Months or Most Recently Relevant to Health Maintenance Insurance [employer] * Guarantor: Tamia Maharaj Account Type Relation to Patient Date of Phone Billing Address Employer Related Employer 1987 [employer] PAYABLE [address] , [address] [place] [address] Care Teams Internet Cafe Manager Relationship Specialty Start Date End Date [facility], [facility] [id number] [place] [address] [facility] General 04/15/23
--- OUTSIDE RECORDS SUMMARY | 2024-12-20 22:27 | XMS_ITS | Encounter Summary ---
Author Organization [facility] Address [address], [place] [address] Care Team Providers Care Bit Gatherer Name Role Phone Javed Fishman MD Primary Care Provider [phone] Reason for Visit * Procedure/Equipment (Routine) - Incomplete Specialty Diagnoses / Procedures Referred By Contac t Referred To Contact Diagnoses Rectal bleeding Procedures CT Abd Pelvis W IV Cont Mj Min MD [address] [place] [address] Referral ID Status Reason Start Date Expiration Date V isits Requested Visits Authorized [id number] Incomplete 12/14/2024 03/15/2026 1 1 Encounter Details Date Type Department Care Team (Late st Contact Info) Description 12/14/2024 7:40 PM HOT WALKER Ancillary Procedure [facility] [address] [address] Scan [address] [place] [address] Mj Min MD [address] [place] [address] Rectal bleeding Social History Tobacco Use Types [...] Name Priority Date/Time Associated Diagnosis Comments CT ABD PELVIS W IV CONT STAT 12/14/2024 7:08 PM HOT WALKER Rectal bleeding documented in this encounter Results * CT Abd Pelvis W IV Cont (12/14/2024 7:08 PM HOT WALKER) Anatomical Region Laterality Modality Abdomen, Pelvis Computed Tomogra phy 12/14/2024 7:07 PM HOT WALKER Impressions 12/15/2024 8:07 AM HOT WALKER 1. Bilateral necrotic inguinal adenopathy, right greater than left. Findings are suspicious for metastatic disease. 2. Possible polypoid enhancing lesion of the anterior rectum. Recommend correlation with physical exam/sigmoidoscopy. Perirectal nodularity is concerning for lymphadenopathy. 3. Solitary right kidney noted. Narrative 12/15/2024 8:07 AM HOT WALKER COMPARISON: None TECHNIQUE: Images were obtained through [...] 75 mL 75 mL, Intravenous, ONCE, On Fri12/14/24 at 1915, For 1 dose Given 12/14/2024 7:08 PM HOT WALKER 75 mL sodium chloride 0.9% injection 10 mL 10 mL, Intravenous, ONCE, On Fri12/14/24 at 1915, For 1 dose Given 12/14/2024 7:08 PM HOT WALKER 10 mL documented in this encounter Care Teams Bit Gatherer Relationship Specialty [place] [id number] [address] [id number] PCP - General Family Practice 05/02/23 documented as of this encounter
--- OUTSIDE RECORDS SUMMARY | 2024-12-20 22:27 | XMS_ITS | Clinical Summary ---
Author Organization [place] Address [address] [facility] [place] [address] Care Team Providers Care Fire Management Specialist Name Role Phone Clinic, [facility] ovider Allergies No known active allergies Medications Vit-Fe [...] 10/14/2016 Nondependent alcohol abuse 07/09/2010 0 07/09/2010 Encounters Date Type Department Care Team Description 12/18/2024 7:31 PM STATION ENGINEER CHIEF - 12/19/2024 3:18 AM STATION ENGINEER CHIEF Hospital Encounter [facility] Emergency Dept [address] [place] [phone] Shaheen Aggarwal MD Taylor, Jeremy James, MD Anemia, unspecified type; Rectal cancer (H) Discharge Disposition: Left Against Medical Advice 12/18/2024 Travel from Last 3 Months Immunizations Name Administration Dates Next Due MMR 10/15/2016 TDAP Vaccine (Adacel) 07/09/2010 Family History Medical History Relation Comments Hypertension Mother Relation Status Comments Father Alive Mother Alive Sister Alive Social History Tobacco Use Types Packs/Day [...] on file Legal Sex Female 3:27 AM STATION ENGINEER CHIEF Gender Identity Not on file Sexual Orientation Not on file Last Filed Vital Signs Vital Sign Reading Time Taken Comments Blood Pressure 104/62 12/19/2024 1:58 AM STATION ENGINEER CHIEF Pulse 97 12/19/2024 1:58 AM STATION ENGINEER CHIEF Temperature 36.7 C (98.1 F) 12/19/2024 1:58 AM STATION ENGINEER CHIEF Respiratory Rate 20 12/19/2024 1:58 AM STATION ENGINEER CHIEF Oxygen Saturation 98% 12/19/2024 1:04 AM STATION ENGINEER CHIEF Inhaled Oxygen Concentration - - Weight 56.5 kg (124 lb 9 oz) 12/18/2024 7:27 PM STATION ENGINEER CHIEF Height 162.6 cm (5' 4) 12/18/2024 9:01 PM STATION ENGINEER CHIEF Body Mass Index 21.38 12/18/2024 7:27 PM STATION ENGINEER CHIEF Plan of Treatment Health Maintenance Due Date Last Done Comments ADVANCE CARE PLANNING 1986 ANNUAL REVIEW OF HM ORDERS 1986 Pneumococcal Vaccine: Pediatrics (0 to 5 Years) and At-Risk Patients (6 to 49 Years) (1 of 2 - PCV) 2005 PAP 2007 YEARLY PREVENTIVE VISIT 10/26/2019 10/26/20 18, 04/29/2008, 08/18/2006 COVID-19 Vaccine ( season) 2024 07/27/2021, 06/25/2021 INFLUENZA VACCINE (#1) 2024 01/25/2020, 2015 PHQ-2 (once per calendar year) 2024 DTAP/TDAP/TD IMMUNIZATION (8 - Td or Tdap) 08/14/2026 08/14/2016, 05/29/2015, 05/01/2014, Additional history exists GLUCOSE 12/18/2027 12/18/2024, 0811/2015, 08/24/2006 ZOSTER IMMUNIZATION (1 of 2) 2036 RSV VACCINE (1 - 1-dose 75+ series) 2061 HEPATITIS B IMMUNIZATION Completed 004, 03/09/2003, 12/22/2002 HPV IMMUNIZATION Completed 05/29/2007, 07/2007, 09/25/2006 HEPATITIS C SCREENING Completed 11/20/2016 HIV SCREENING Completed 12/15/2024, 05/0 07/2016, 02/03/2015 MENINGITIS IMMUNIZATION Aged Out No l onger eligible based on patient's age to complete this topic RSV MONOCLONAL ANTIBODY Aged Out No l onger eligible based on patient's age to complete this topic Procedures Procedure Name Priority Date/Time Associated Diagnosis Comments CBC WITH PLATELETS & DIFFERENTIAL STAT 12/19/2024 2:42 AM STATION ENGINEER CHIEF BLOOD CULTURE STAT 12/19/2024 2:42 AM STATION ENGINEER CHIEF RBC AND PLATELET MORPHOLOGY STAT 12/19/2024 2:42 AM STATION ENGINEER CHIEF CBC WITH PLATELETS AND DIFFERENTIAL STAT 12/19/2024 2:42 AM STATION ENGINEER CHIEF ROUTINE UA WITH MICROSCOPIC REFLEX TO CULTURE STAT 12/19/2024 1:11 AM STATION ENGINEER CHIEF TRANSFUSE RED BLOOD CELLS (UNIT) STAT 12/18/2024 11:46 PM STATION ENGINEER CHIEF PREPARE RED BLOOD CELLS (UNIT) STAT 12/18/2024 10:32 PM STATION ENGINEER CHIEF ABO/RH TYPE AND SCREEN STAT 7:59 PM STATION ENGINEER CHIEF CBC WITH PLATELETS & DIFFERENTIAL STAT 12/18/2024 7:59 PM STATION ENGINEER CHIEF TYPE AND SCREEN, ADULT STAT 7:59 PM STATION ENGINEER CHIEF PROCALCITONIN STAT 12/18/2024 7:59 PM STATION ENGINEER CHIEF CBC WITH PLATELETS AND DIFFERENTIAL STAT 12/18/2024 7:59 PM STATION ENGINEER CHIEF INR STAT 12/18/2024 7:59 PM STATION ENGINEER CHIEF COMPREHENSIVE METABOLIC PANEL STAT 12/18/2024 7:59 PM STATION ENGINEER CHIEF HIV ANTIGEN ANTIBODY COMBO Routine 03/25/2016 from Last 3 Months or Most Recently Relevant to Health Maintenance Results * RBC and Platelet Morphology (12/19/2024 2:42 AM STATION ENGINEER CHIEF) Pathologist [facility] [place] RBC Morphology Confirmed RBC Indices 12/19/2024 3:45 AM STATION ENGINEER CHIEF [facility] Platelet Assessment Automated Count Confirmed. Platelet morphology is normal. Automated Count Confirmed. Platelet morphology is normal. EILEEN 12/19/2024 3:45 AM STATION ENGINEER CHIEF [facility] Blood STRUCTURE OF RIGHT UPPER LIMB / Unknown Venipuncture / Unknown 12/19/2024 2:42 AM STATION ENGINEER CHIEF 12/19/2024 2:47 AM STATION ENGINEER CHIEF us Darius Arriaga MD LAB - BLOOD ORDERABLES Fi nal Result [facility] LAB[facility]ATORY [facility] [address] [facility] Lab (1st floor, no room number) [place] [address], [facility] * (ABNORMAL) CBC with platelets and differential (12/19/2024 2:42 AM STATION ENGINEER CHIEF) Only the most recent of2 resultswithin the time period is included. WBC Count 23.4(H) 4.0 - 11.0 10e3/uL 12/19/2024 3:45 AM STATION ENGINEER CHIEF [facility] RBC Count 2.94(L) 3.80 - 5.20 10e6/uL 12/19/2024 3:45 AM STATION ENGINEER CHIEF [facility] Hemoglobin 7.7(L) 11.7 - 15.7 g/dL 12/19/2024 3:45 AM STATION ENGINEER CHIEF [facility] Hematocrit 24.5(L) 35.0 - 47.0 % 12/19/2024 3:45 AM STATION ENGINEER CHIEF [facility] MCV 83 78 - 100 fL 12/19/2024 3:45 AM STATION ENGINEER CHIEF [facility] MCH 26.2(L) 26.5 - 33.0 pg 12/19/2024 3:45 AM STATION ENGINEER CHIEF [facility] MCHC 31.4(L) 31.5 - 36.5 g/dL 12/19/2024 3:45 AM STATION ENGINEER CHIEF [facility] RDW 14.7 10.0 - 15.0 % 12/19/2024 3:45 AM STATION ENGINEER CHIEF [facility] Platelet Count 896(H) 150 - 450 10e3/uL 12/19/2024 3:45 AM STATION ENGINEER CHIEF [facility] % Neutrophils 70 % 12/19/2024 3:45 AM STATION ENGINEER CHIEF [facility] % Lymphocytes 15 % 12/19/2024 3:45 AM STATION ENGINEER CHIEF [facility] % Monocytes 8 % 12/19/2024 3:45 AM STATION ENGINEER CHIEF [facility] % Eosinophils 6 % 12/19/2024 3:45 AM STATION ENGINEER CHIEF [facility] % Basophils 1 % 12/19/2024 3:45 AM STATION ENGINEER CHIEF [facility] % Immature Granulocytes 1 % 12/19/2024 3:45 AM STATION ENGINEER CHIEF [facility] NRBCs per 100 WBC 0 <1 /100 025 3:45 AM STATION ENGINEER CHIEF [facility] Absolute Neutrophils 16.4(H) 1.6 - 8.3 10e3/uL 12/19/2024 3:45 AM STATION ENGINEER CHIEF [facility] Absolute Lymphocytes 3.5 0.8 - 5.3 10e3/uL 12/19/2024 3:45 AM STATION ENGINEER CHIEF [facility] Absolute Monocytes 1.8(H) 0.0 - 1.3 10e3/uL 12/19/2024 3:45 AM STATION ENGINEER CHIEF [facility] Absolute Eosinophils 1.4(H) 0.0 - 0.7 10e3/uL 12/19/2024 3:45 AM STATION ENGINEER CHIEF [facility] Absolute Basophils 0.1 0.0 - 0.2 10e3/uL 12/19/2024 3:45 AM STATION ENGINEER CHIEF [facility] Absolute Immature Granulocytes 0.2 <=0.4 10e3/uL 12/19/2024 3:45 AM STATION ENGINEER CHIEF LABORATORY Absolute NRBCs 0.0 10e3/uL 12/19/2024 3:45 AM STATION ENGINEER CHIEF LABORATORY Blood STRUCTURE OF RIGHT UPPER LIMB / Unknown Venipuncture / Unknown 12/19/2024 2:42 AM STATION ENGINEER CHIEF 12/19/2024 2:47 AM STATION ENGINEER CHIEF Darius Arriaga MD LAB - BLOOD ORDERABLES Fi nal Result LABORATORY [facility] [address] Lab (1st floor, no room number) [place] [address] * Transfuse red blood cells (unit) (12/19/2024 2:00 AM STATION ENGINEER CHIEF) us Shaheen Aggarwal MD BLOOD TRANSFUSION ORDERABLES Final Result * (ABNORMAL) UA with Microscopic reflex to Culture (12/19/2024 1:11 AM STATION ENGINEER CHIEF) Color Urine Straw Colorless, Straw, Light Yellow, Yellow 12/19/2024 1:42 AM [facility] Appearance Urine Clear Clear 12/19/19 1:42 AM [facility] Glucose Urine Negative Negative mg/dL 12/19/2024 1:42 AM [facility] Bilirubin Urine Negative Negative 1:42 AM STATION ENGINEER CHIEF LABORATORY Ketones Urine Negative Negative mg/dL 12/19/2024 1:42 AM [facility] Specific [place] Urine 1.003 1.003 - 1.035 12/19/2024 1:42 AM STATION ENGINEER CHIEF LABORATORY Blood Urine Negative Negative 12/19/2024 1:42 AM [facility] pH Urine 6.0 5.0 - 7.0 12/19/2024 1:42 AM [facility] Protein Albumin Urine Negative Negative mg/dL 12/19/2024 1:42 AM [facility] Urobilinogen Urine Normal Normal, 2.0 mg/dL 12/19/2024 1:42 AM STATION ENGINEER CHIEF LABORATORY Nitrite Urine Negative Negative 12/19/2024 1:42 AM [facility] Leukocyte Esterase Urine Negative Negative 12/19/2024 1:42 AM STATION ENGINEER CHIEF [facility] RBC Urine 0 <=2 /HPF 12/19/2024 1:42 AM STATION ENGINEER CHIEF [facility] WBC Urine <1 <=5 /HPF 12/19/2024 1:42 AM STATION ENGINEER CHIEF [facility] Squamous Epithelials Urine 2(H) <=1 /HPF 12/19/2024 1:42 AM STATION ENGINEER CHIEF [facility] Urine URINE SPECIMEN OBTAINED BY CLEAN CATCH PROCEDURE / Unknown Non-blood Collection / Unknown 12/19/2024 1:11 AM STATION ENGINEER CHIEF 12/19/2024 1:15 AM STATION ENGINEER CHIEF Narrative [facility] - 12/19/2024 1:42 AM STATION ENGINEER CHIEF Urine Culture not indicated us Darius Arriaga MD LAB - URINE ORDERABLES Fi nal Result LABORATORY [facility] [address] Lab (1st floor, no room number) [place] [address] * Prepare red blood cells (unit) (12/18/2024 10:32 PM STATION ENGINEER CHIEF) Blood Component Type Red Blood Cells RH BLOOD BANK Product Code [id number] RH BLOO D BANK Unit Status Transfused RH BLOO D BANK Unit Number [id number] RH B LOOD BANK CROSSMATCH Compatible RH BLOOD BANK CODING SYSTEM [id number] RH BLO OD BANK ISSUE DATE AND TIME [id number] RH BLOOD BANK UNIT ABO/RH O+ RH BLOOD BANK UNIT TYPE ISBT 5100 RH BL OOD BANK 12/18/2024 10:3 2 PM STATION ENGINEER CHIEF us Shaheen Aggarwal MD BLOOD BANK PRODUCT ORDERABLE S Final Result RH BLOOD BANK [address] [place] [address] [place] [address] * Adult Type and Screen (12/18/2024 7:59 PM STATION ENGINEER CHIEF) ABO/RH(D) O POS 12/18/2024 7:36 PM STATION ENGINEER CHIEF RH BLOOD BANK Antibody Screen Negative Negative 12/18/2024 7:36 PM STATION ENGINEER CHIEF RH BLOOD BANK SPECIMEN EXPIRATION DATE [id number] 12/18/2024 7:36 PM STATION ENGINEER CHIEF BLOOD BANK Blood STRUCTURE OF RIGHT UPPER LIMB / Unknown Venipuncture / Unknown 12/18/2024 7:59 PM STATION ENGINEER CHIEF 12/18/2024 8:07 PM STATION ENGINEER CHIEF Shaheen Aggarwal MD LAB - BLOOD BANK TEST ORDER Final Result [place] [address] * Procalcitonin (12/18/2024 7:59 PM STATION ENGINEER CHIEF) Procalcitonin 0.09 <0.50 ng/mL 12/19/2024 1:49 AM STATION ENGINEER CHIEF LABORATORY Comment: Interpretation and Recommendations <0.5 ng/mL: Systemic bacterial infection unlikely. Local bacterial infection is possible. 0.5-1.99 ng/mL: Systemic bacterial infection possible, but various other conditions are known to induce PCT as well. >=2.00 ng/mL: Systemic bacterial infection likely, unless other causes are known. Decision to start antibiotics should not be based on procalcitonin level alone. See Procalcitonin Guidance document for more details. [email or web address] Factors that may affect PCT levels (not [...] Unknown Venipuncture / Unknown 12/18/2024 7:59 PM STATION ENGINEER CHIEF 12/18/2024 8:07 PM STATION ENGINEER CHIEF Darius Arriaga MD LAB - BLOOD ORDERABLES Fi nal Result [facility] [address] Lab (1st floor, no room number) [place] [phone] [place] [address] * (ABNORMAL) INR (12/18/2024 7:59 PM STATION ENGINEER CHIEF) INR 1.39(H) 0.85 - 1.15 12/18/2024 8:51 PM STATION ENGINEER CHIEF LABORATORY Blood STRUCTURE OF RIGHT UPPER LIMB / Unknown Venipuncture / Unknown 12/18/2024 7:59 PM STATION ENGINEER CHIEF 12/18/2024 8:07 PM STATION ENGINEER CHIEF Shaheen Aggarwal MD LAB - BLOOD ORDERABLES Final Result Performing Organization Address City/[facility]/ZIP Co de Phone Number [facility] [address] Lab (1st floor, no room number) [place] [phone] * (ABNORMAL) Comprehensive metabolic panel (12/18/2024 7:59 PM STATION ENGINEER CHIEF) Sodium 136 135 - 145 mmol/L 12/18/2024 8:34 PM [facility] Potassium 3.9 3.4 - 5.3 mmol/L 12/18/2024 8:34 PM [facility] Carbon Dioxide (CO2) 24 22 - 29 mmol/L 12/18/2024 8:34 PM [facility] Anion Gap 13 7 - 15 mmol/L 12/18/2024 8:34 PM STATION ENGINEER CHIEF LABORATORY Urea Nitrogen 6.6 6.0 - 20.0 mg/dL 12/18/2024 8:34 PM [facility] Creatinine 0.55 0.51 - 0.95 mg/dL 12/18/2024 8:34 PM [facility] GFR Estimate >90 >60 mL/min/1.7 3m2 12/18/2024 8:34 PM [facility] Comment:eGFR calculated usin 2020 CKD-EPI equation. Calcium 8.6(L) 8.8 - 10.4 mg/dL 12/18/2024 8:34 PM STATION ENGINEER CHIEF LABORATORY Chloride 99 98 - 107 mmol/L 12/18/2024 8:34 PM STATION ENGINEER CHIEF LABORATORY Glucose 110(H) 70 - 99 mg/dL 12/18/2024 8:34 PM STATION ENGINEER CHIEF LABORATORY Alkaline Phosphatase 374(H) 40 - 150 U/L 12/18/2024 8:34 PM STATION ENGINEER CHIEF LABORATORY AST 27 0 - 45 U/L 12/18/2024 8:34 PM STATION ENGINEER CHIEF LABORATORY ALT 40 0 - 50 U/L 12/18/2024 8:34 PM STATION ENGINEER CHIEF LABORATORY Protein Total 7.2 6.4 - 8.3 g/dL 12/18/2024 8:34 PM STATION ENGINEER CHIEF LABORATORY Albumin 3.1(L) 3.5 - 5.2 g/dL 12/18/2024 8:34 PM STATION ENGINEER CHIEF LABORATORY Bilirubin Total 0.3 <=1.2 mg/dL 12/18/2024 8:34 PM STATION ENGINEER CHIEF LABORATORY Blood STRUCTURE OF RIGHT UPPER LIMB / Unknown Venipuncture / Unknown 12/18/2024 7:59 PM STATION ENGINEER CHIEF 12/18/2024 8:07 PM STATION ENGINEER CHIEF Shaheen Aggarwal MD LAB - BLOOD ORDERABLES Final Result LABORATORY [facility] [address] [facility] Lab (1st floor, no room number) [place] [address], [facility] * HIV Antigen Antibody Combo (03/25/2016) HIV Antigen Antibody Combo Nonreactive Blood specimen (specimen) Patient Reported LAB - BLOOD ORDERABLES Final Re sult from Last 3 Months or Most Recently Relevant to Health Maintenance 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
--- OUTSIDE RECORDS SUMMARY | 2024-12-20 22:27 | XMS_ITS | Encounter Summary ---
Author Organization [place] Address [address] [place] [address]. [place] [address] Care Team Providers Care French Folder Name Role Phone Unavailable Primary Care Provider Unavailabl e Encounter Details Date Type Department Care Team (Late st Contact Info) Description 02/12/2010 8:08 PM CDT [facility] [address] [place] [phone] Adeel Valente MD [address] [place], [place] [phone] Social History Tobacco Use Types Packs/Day Years Used Date Smoking Tobacco: Every Day Cigarettes 1 7 Smokeless Tobacco: Never Alcohol Use Standard Drinks/Week Comments No 10 (1 standard drink = 0.6 oz pu re alcohol) Comments No Sex and Gender Information Value Date Recorded Sex Assigned at Not on file Legal Sex Female 3:27 AM HISTORY INSTRUCTOR Gender Identity Not on file Sexual Orientation Not on file documented as of this encounter Plan of Treatment Not on file documented as of this encounter Visit Diagnoses Not on filedocumented in this encounter
[2024-12-20 22:32] VITALS: BP 106/69; PULSE 114; RESP 16; TEMP 37.8; O2SAT 97; BMI 21.5
--- NOTE | 2024-12-20 22:33 | ED.GENADULT ---
HPI - General Adult General Time Seen by Provider: 22:33 Date Seen: 12/20/24 Chief complaint: Unspecified Complaint, Adult Stated complaint: passing blood clots Time Seen by Provider: 12/20/24 22:31 Source: patient and RN notes reviewed Mode of arrival: ambulatory Limitations: no limitations History of Present Illness HPI narrative: This 39-year-old female is ambulatory into the ED with complaint of passing rectal clots. She has been diagnosed with metastatic invasive rectal squamous cell carcinoma. She was at [facility] on December 18 to December 19, received a transfusion of 1 unit of packed red blood cells for anemia down to 6.9. She did leave AMA. Her discharge hemoglobin was 7.7 after the transfusion. Her white blood count has been elevated, on admission was 27,500, follow-up was 23,400. Platelets were 940,000 initially and then 896,000. She is been having some inguinal adenopathy, pelvic pain and passing blood clots rectally. She had a CT that showed a rectal mass with associated lymphadenopathy and bilateral inguinal adenopathy, of note the CT on December 14 showed bilateral necrotic inguinal adenopathy. Her CT chest in December 17 showed no metastatic disease. She has seen a surgeon Dr. Nunez on December 17 who is awaiting pathology. Patient is scheduled to see Oncology. She states she is here to see if she needs another transfusion, wants to know there is something we can do to stop the bleeding. She states she has had 2 CTs now, have not found any cause of bleeding, she did have a colonoscopy. Reviewed with her that this may be something difficult, can be somewhat nebulous bleeding from a tumor, will have to see where her hemoglobin is in observe her. She has been worked up for infection, she notes that when she seems to get the clots or bleeding, will have fevers. She has been noting night sweats. She notes no new cough or cold symptoms. She will get some left-sided abdominal pain when she is passing clots but otherwise no acute issues. Her procalcitonin was normal on December 18 at [facility] at 0.09, had negative urinalysis. 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 She is hoping to be treated through the [facility]. Her tumor is noted to be at the anorectal junction with a large mass on colonoscopy. 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 Related Data Home Medications ?Medication ?Instructions ?Recorded ?Confirmed No Known Home Medications 12/20/24 12/20/24 Allergies Allergy/AdvReac Type Severity Reaction Status Date / Time No Known Drug Allergies Allergy Verified 12/20/24 22:37 Review of Systems Status of ROS: Reports: 6 or more systems reviewed and unremarkable except as noted in History and below [facility] Social History Smoking Status: Current every day smoker What tobacco products do you use: cigarettes Do you use any of these nicotine containing products: E-Cigarettes and Vaping Products How often do you have a drink containing alcohol: never AUDIT-C Alcohol total score: 0 Non-prescribed substance use: denies use Exam Const: Vital Signs, click to edit/add: Vital Signs - 24 hr 12/20/24 22:32 12/20/24 22:47 Temperature 100.1 F H Pulse Rate [Pulse Oximeter] 114 H Respiratory Rate 16 Blood Pressure [Ri ght Upper Arm] 106/69 Pulse Oximetry 97 98 Oxygen Delivery Me thod Room Air 39-year-old female is alert, interactive, no apparent distress. Skin without rash but feels warm. Sclera clear, conjugate gaze. Neck supple, no adenopathy or masses. Lungs are clear, good air entry, no wheezing or crackles. CV regular rate and rhythm, no murmur, normal S1-S2, no S3-S4. Abdomen is soft, nontender, nondistended, no organomegaly or masses noted. She certainly has no rebound or guarding. She is ambulatory into the ED of her own accord. Note her low-grade temperature. Documenting provider has reviewed patient's vital signs: yes Course Course ED Course: This is a complex case and at this point patient is not actively extravasating. Will see where her hemoglobin is. I have reviewed with her that we really have no way to stop any bleeding. This is likely not simple as just finding 1 spot bleeding from looking at her history. Maybe some active oozing from the mass. We do not have the capacity to do any emergent active imaging like colonoscopy, do not do angiography or have Interventional Radiology here. Best I can do for her is to make sure she stable, does not require an active transfusion and recheck her labs. Reevaluation(s) Time of Reevaluation #1: 23:23 Reevaluation #1: Patient requesting to eat and drink. Will allow this. Her white blood count is elevated, hemoglobin is satisfactory at 8.1. Her white blood count has been elevated like this, suspect she may have some necrosis from the inguinal lymph nodes and the cancer itself feeling this. She has been having night sweats, low-grade fevers which could be the cancerous process itself. Would anticipate that if she had significant underlying bacterial infection that we would start to see evidence of a source. She is noting baseline symptoms that she has been having throughout this process. Awaiting her chemistries, will discuss with her that hemoglobin is stable white blood count remains elevated. Would like to see what her chemistries and procalcitonin are at. Her lactate is completely normal. Time of Reevaluation #2: 23:45 Reevaluation #2: Patient's procalcitonin remains stable as well. Did review liver liver enzymes are mildly elevated and increased alkaline phosphatase. Alkaline phosphatase certainly can be from her cancer. She is not known to have liver metastases that I am aware of but cannot see her actual imaging reports. Do not think at this time that repeating abdominal imaging is necessary nor is a going to change anything here. She has no active bleeding noted at this time but do believe that she is passing clots. That is reportedly been going on daily throughout this looking in her records. Her hemoglobin is stable and does not require transfusion at this time. Her white count remains stably elevated, she does have a low-grade temperature but this has been going on for some time. Her inguinal lymph nodes were necrotic on prior CT but she does not have increased inguinal pain. I do wonder if some of this could be from the actual cancer process itself. She has Oncology a follow-up appointment tomorrow. She is offered observation here longer in the ER or even in the hospital but I cannot guarantee discharge by the time she needs to make it to her oncology appointment. She has declined staying here. She actually lives in [place] not far from [facility]. I have spoken with her and advised her if she is having increased bleeding, I would recommend actually going to [facility] where they do have the capacity for emergency endoscopy and do have multimodality supports that we do not have at [place]. Have reviewed with her that bed capacity is limited to non-existent at this time. We have tried to transfer out tonight to no avail. It sounds as if that was 1 of the problems when she was admitted at [facility] on the , ended up boarding in the ED. reviewed with her that that is pretty common at this time. She is declining staying here, have discussed with her that there is the potential for underlying infection that we are not finding but this is been going on long enough that I think she is stable to discharge in follow-up tomorrow. Do not have Oncology for her, no colorectal surgeon. We do not have Interventional Radiology. She will hold in our ED at this time if we attempt for transfer as there are no beds at other institutions. I do not think that it is necessary for her at this time to go inpatient but certainly could be considered with her case and her lab values. She does decline, will follow-up with oncology tomorrow. Vital Signs Vital signs: Initial Vital Signs Temperature 100.1 F H 12/20/24 22:32 Temperature Source Temporal Artery Scan 12/20/24 22:32 Pulse Rate 114 H 12/20/24 22:32 Respiratory Rate 16 12/20/24 22:32 Blood Pressure 106/69 12/20/24 22:32 Blood Pressure Mean 81 12/20/24 22:32 Blood Pressure Position Sitting 12/20/24 22:32 Pulse Oximetry 97 12/20/24 22:32 Oxygen Delivery Method Room Air 12/20/24 22:32 Vital Signs Temperature 100.1 F H 12/20/24 22:32 Pulse Rate 114 H 12/20/24 22:32 Respiratory Rate 16 12/20/24 22:32 Blood Pressure 106/69 12/20/24 22:32 Pulse Oximetry 97 12/20/24 22:32 Oxygen Delivery Method Room Air 12/20/24 22:32 Temperature 100.1 F H 12/20/24 22:32 Pulse Rate 114 H 12/20/24 22:32 Respiratory Rate 16 12/20/24 22:32 Blood Pressure 106/69 12/20/24 22:32 Pulse Oximetry 98 12/20/24 22:47 Oxygen Delivery Method Room Air 12/20/24 22:32 Medical Decision Making Lab Data Lab results reviewed: Yes I reviewed the patient's lab results Labs: Lab Results 12/20/24 Range/Units 22:50 WBC 26.64 H* (4.50-11.00) K/uL RBC 3.15 L (4.00-5.20) m/uL Hgb 8.1 L (12.0-16.0) gm/dL Hct 26.5 L (33.0-51.0) % MCV 84 (80-100) fL MCH 26 (26-34) pg MCHC 31 L (32-36) gm/dL RDW Coeff of Samanta 15.0 (11.5-15.5) % Plt Count 987 H (140-440) K/uL Neut % (Auto) 75.3 H (42.0-72.0) % Lymph % (Auto) 12.4 L (20-44) % [place] % (Auto) 6.3 (0.0-11.0) % Eos % (Auto) 4.5 (0.0-7.0) % Baso % (Auto) 0.2 (0.0-3.0) % Neut # (Auto) 20.10 H (1.7-7.0) K/uL Lymph # (Auto) 3.30 H (0.90-2.90) K/uL [place] # (Auto) 1.70 H (0.00-0.90) K/UL Eos # (Auto) 1.20 H (0.00-0.50) K/uL Baso # (Auto) 0.10 (0.00-0.30) K/uL Abs Immat Gran (auto) 0.30 (0.00-0.30) K/uL Imm/Tot Granulo (auto) 1.3 % Sodium 137 (135-149) mmol/L Potassium 3.6 (3.6-5.1) mmol/L Chloride 103 (96-114) mmol/L Carbon Dioxide 26 (20-32) mmol/L Anion Gap 8 (7-15) mEq/L BUN 6 (5-24) mg/dL Creatinine 0.6 (0.5-1.5) mg/dL Estimated Creat Clear 109.78 Estimated GFR 118 ml/min Glucose 110 (60-115) mg/dL Lactate 0.6 (0.5-1.9) mmol/L Calcium 8.6 (8.4-10.6) mg/dL Total Bilirubin 0.3 (0.1-1.5) mg/dL AST 44 H (12-35) U/L ALT 40 H (4-35) U/L Alkaline Phosphatase 433 H (40-150) U/L Total Protein 7.2 (6.0-8.3) g/dL Albumin 3.3 (3.3-5.0) g/dL Procalcitonin 0.14 (<0.50) ng/mL Discharge Plan Discharge Clinical Impression: Squamous cell carcinoma of rectum, Rectal bleeding Patient Disposition: Home, Self-Care Condition: Stable Instructions: Rectal Bleeding (ED), Colorectal Cancer (DC) Additional Instructions: You absolutely need to see the oncologist tomorrow morning as scheduled. In the interim, if you have increased rectal bleeding, further concerns overnight, would recommend that you be seen back at [facility] which is the closest hospital to her house. You have no evidence of any bleeding while here that requires transfusion or intervention. We do not possess the endoscopy department that operate after hours or would be able to intervene in your situation, nor do we have interventional radiology on staff that would be able to do any angiography or embolization. It is really important that you monitor for increased bleeding and get to an advanced level institution by a ambulance if need be for further issues. I really hope that things stay settle down overnight so that you can make the oncology appointment tomorrow. Prescriptions: No Action No Known Home Medications Follow Up/Referrals: Provider,Not a Local [Primary Care Provider] - Stand Alone Forms: Linki Info Instructions
[2024-12-20 22:47] VITALS: O2SAT 98
[2024-12-20 22:53] LABS: Lactate* 0.6 mmol/L (0.5-1.9)
--- OUTSIDE RECORDS SUMMARY | 2024-12-20 22:59 | XMS_ITS | Clinical Summary ---
Author Organization [facility] Address [address], [place] [address] Care Team Providers Care Mushroom Sorter Grader Name Role Phone Javed Fishman MD Primary Care Provider [phone]- [phone] Source Comments You are receiving this document [...] for each transition of care or referral. [employer] Allergies No known active allergies Medications Medication [...] agenesis of kidney Normal Quad Screen (T21 1:44324, OSB 1:30886, T18 1:87775) IUGR Gender Disclosed - Male Problem Noted Date Diagnosed Date Rectal bleeding 12/07/2024 Recurrent depression 08/26/2022 DAMIEN (generalized anxiety disorder) 08/26/2022 Irritability 08/26/2022 History of major depression 12/11/2016 Cervical high risk HPV (human papillomavirus) te st positive 03/28/2016 ASCUS with positive high risk HPV cervical 03/28 Overview (11/20/2019): CCSM Review: History: 03/2016: ASCUS HPV+ (16). Visual colp, no bx 11/2016: ASCUS HPV+ (16). [place] neg 10/2018: ASCUS HPV+ (16) 02/2019: colp [...] Nurse Triage Careline [address] [place] [address] Donaldo Cooper CHEST PAIN 12/17/2024 11:20 AM ORACLE CONSULTANT Ancillary Procedure [facility] [address] [address] Scan [address] [place] [address] Mikhail Nunez MD Rectal bleeding 12/17/2024 11:10 AM ORACLE CONSULTANT Lab Visit [facility] Outpatient Laboratory [address] [place] [address]. [place] [address] Rectal bleeding 12/17/2024 9:30 AM ORACLE CONSULTANT Office Visit [facility] [address] Colorectal Surgery [address] [place] [address] [address] [place] [address] Mikhail Nunez MD Rectal bleeding (Primary Dx); Rectal mass 12/17/2024 Nurse Triage Careline [address] [place] [address] Unassigned, Provider GAS, PAIN 12/16/2024 9:43 AM ORACLE CONSULTANT - 12/16/2024 11:59 PM ORACLE CONSULTANT Hospital Encounter Endoscopy at [facility] at [address] [place] [address] Sami Shane MD Rectal bleeding (Primary Dx); Rectal mass; Hematochezia Discharge Disposition: Home 12/16/2024 Telephone Specialty [facility] [address] Colorectal Surgery [address] [place] [address] [address] [place] [address] Vikki Rosario RN Appt. Scheduled 12/15/2024 5:05 PM ORACLE CONSULTANT E-Visit Specialty Center 39[address] General Surgery [address] [place] [address] [address] [place] [address] Mj Min MD Chief Comp: Pre-visit Planning 12/15/2024 3:45 PM ORACLE CONSULTANT Lab Visit [facility] [address] [place] [phone] Rectal bleeding; Lymphadenopathy 12/15/2024 3:00 PM ORACLE CONSULTANT Ancillary Procedure [facility] [place] [address] [address] [address] [place] [phone] Kay Caceres, MILLER APPRENTICE, DRESSED POULTRY GRADER Pelvic pain in female 12/15/2024 Nurse Triage Careline [address] [place] [address] Unassigned, Provider Colonoscopy Prep 12/15/2024 E-Visit Digestive Care at [facility] at [address] [place] [address] Librado Ferrer MD Dx: Rectal cancer (HRC) (Primary Dx) 12/15/2024 Notes/Orders Obstetrics & Gynecology at [address] [phone] Berenice Ramirez LPN Patient counseled (Primary Dx) 12/15/2024 E-Visit Endoscopy at [facility] at [address] [place] [address] Mychart, Generic Provider 12/15/2024 Telephone Digestive Care at [facility] at [address] [place] [address] Librado Ferrer MD RESULTS, TEST (CT scan, discussion regarding procedure for tomorrow) 12/15/2024 Notes/Orders [facility] Surgeon Non-Employed [address] [place] [address]. [place] [address] Mj Min MD Lymphadenopathy (Primary Dx); Rectal bleeding 12/15/2024 Notes/Orders [facility] General Surgery [address] [facility] [address] [place] [address] Mj Min MD Rectal bleeding (Primary Dx) 12/14/2024 7:40 PM ORACLE CONSULTANT Ancillary Procedure [facility] [address] [address] Scan [address] [place] [address] Mj Min MD Rectal bleeding 12/14/2024 3:50 PM ORACLE CONSULTANT E-Visit Specialty [facility] 393 General Surgery [address] [place] [address] [address] [place] [address] Mj Min MD Chief Comp: Forms/Letter 12/14/2024 8:20 AM ORACLE CONSULTANT Office Visit Obstetrics & Gynecology at [address] [address] Kay Caceres, MILLER APPRENTICE, DRESSED POULTRY GRADER Pelvic pain in female (Primary Dx); Screening for malignant neoplasm of cervix; Special screening examination for human papillomavirus (HPV) 12/14/2024 Telephone Specialty [facility] General Surgery [address] [place] [address] [address] [place] [address] Ronit Almaguer RN Test Request; Lab Test Needed 12/14/2024 Notes/Orders Special[facility] General Surgery [address] [place] [address] [address] [place] [address] Mj Min MD Rectal bleeding (Primary Dx) 12/13/2024 Telephone Specialty [facility] General Surgery [address] [place] [address] [address] [place] [address] Lisseth Robins, SILVIA RESULTS, TEST 12/10/2024 Notes/Orders [facility] General Surgery [address] [place] [address] [address] [place] [address] Mj Min MD Lymphadenopathy (Primary Dx) 12/09/2024 6:45 PM ORACLE CONSULTANT Ancillary Procedure [facility] [address] [address] [address] [place] [address] Mj Min MD Lymphadenopathy 12/09/2024 E-Visit Endoscopy at [facility] at [address] [place] [address] Mychart, Generic Provider 12/07/2024 3:40 PM ORACLE CONSULTANT Office Visit Specialty Center 3931 General Surgery 3931 [facility] [address] [place] [address] Mj Min MD Rectal bleeding (Primary Dx); History of loop electrical excision procedure (LEEP); Lymphadenopathy 11/29/2024 5:00 PM ORACLE CONSULTANT Office Visit [place] [address] [facility] [address] [place] [address] Chalino Alicia MD Lymph node enlargement 11/29/2024 Nurse Triage [facility] [address] [place] [address] Javed Fishman MD Lump from Last 3 Months Immunizations Name Administration Dates Next Due 4vHPV (Gardasil) 05/29/2007,11/25/2006, 6 11/25/2006 HepB Ped/Adol (0-18 yrs) 12/23/2003,03/09/2003 HepB, Unspecified Formulation 12/22/2002 Influenza IIV4 (Quadrivalent ) 0.5mL (35672) 08/14/2016 Influenza, Unspecified Formulation 01/25/2020 MMR 10/15/2016,06/17/1988 [...] Mother Lashonda Lei Kidney defect Mother Lashonda Lei Diabetes, Type II Maternal Grandfather Diabetes Maternal [...] Comments Blood Pressure 90/55 12/16/2024 11:29 AM ORACLE CONSULTANT Pulse 93 12/16/2024 11:29 AM ORACLE CONSULTANT Temperature 37.1 C (98.8 F) 11/29/2024 4:50 PM ORACLE CONSULTANT Respiratory Rate 14 12/16/2024 11:29 AM ORACLE CONSULTANT Oxygen Saturation 100% 12/16/2024 11:29 AM ORACLE CONSULTANT Inhaled Oxygen Concentration - - Weight 55.8 kg (123 lb) 12/17/2024 9:43 AM ORACLE CONSULTANT Height 162.6 cm (5' 4) 12/17/2024 9:43 AM ORACLE CONSULTANT Body Mass Index 21.11 12/17/2024 9:43 AM ORACLE CONSULTANT Plan of Treatment Health Maintenance Due Date [...] IV CONT STAT 12/17/2024 11 :41 AM ORACLE CONSULTANT Rectal bleeding HEMOGLOBIN, BLOOD Routine 12/17/2024 10: 34 AM ORACLE CONSULTANT Rectal bleeding SURGICAL PATHOLOGY, GI Routine 11:31 AM ORACLE CONSULTANT Rectal mass Hematochezia POCT URINE Routine 12/16/2024 10:38 AM ORACLE CONSULTANT COLONOSCOPY DIAGNOSTIC Routine 10:21 AM ORACLE CONSULTANT Rectal mass Hematochezia COMPREHENSIVE METABOLIC PANEL Routine 12/15/2024 3:54 PM ORACLE CONSULTANT Lymphadenopathy US PELVIC COMPLETE WO EV Routine 025 3:38 PM ORACLE CONSULTANT Pelvic pain in female HIV 1/2 AG/AB 4TH GEN Routine 12/15/2024 3:38 PM ORACLE CONSULTANT Rectal bleeding CARCINOEMBRYONIC ANTIGEN (CEA) Routine 12/15/2024 3:38 PM ORACLE CONSULTANT Rectal bleeding CANCER ANTIGEN-GI (CA 19-9) Routine 12/15/2024 3:38 PM ORACLE CONSULTANT Rectal bleeding CA-125 (CARBOHYDRATE AG 125) STAT 12/15/2024 3:38 PM ORACLE CONSULTANT Rectal bleeding CT ABD PELVIS W IV CONT STAT 12/14/19 25 7:08 PM ORACLE CONSULTANT Rectal bleeding US GROIN RT Routine 12/09/2024 7:08 PM ORACLE CONSULTANT Lymphadenopathy ANATOMICAL PATH LIQUID BASED Routine 10/26/2018 2:32 PM ORACLE CONSULTANT HEPATITIS C ANTIBODY, WITH REFLEX Routine 11/20/2016 10:14 AM ORACLE CONSULTANT Special screening examination for viral disease from Last 3 Months or Most Recently Relevant to Health Maintenance Results * CT Chest W IV Cont (12/17/2024 11:41 AM ORACLE CONSULTANT) Anatomical Region Laterality Modality Chest, Lung Computed Tomogra phy 12/17/2024 11:3 5 AM ORACLE CONSULTANT Impressions 12/17/2024 12:50 PM ORACLE CONSULTANT Unremarkable chest CT with no evidence of metastatic disease. Narrative 12/17/2024 12:50 PM ORACLE CONSULTANT COMPARISON: CT abdomen and pelvis 12/14/2024 TECHNIQUE: [...] (ABNORMAL) Hemoglobin, Blood (HGB) (12/17/2024 10:34 AM ORACLE CONSULTANT) Hemoglobin 7.5(L) 12.0 - 15.5 g/dL 12/17/2024 10:51 AM ORACLE CONSULTANT [facility] Blood Venipuncture / Unknown 12/17/2024 10:34 AM ORACLE CONSULTANT 12/17/2024 10:37 AM ORACLE CONSULTANT Mikhail Nunez MD LAB[facility]1 [place] [address] * Surgical Path - GI (12/16/2024 11:31 AM ORACLE CONSULTANT) Case Report Surgical Pathology Case: [id number] Authorizing Provider: Sami Shane MD Collected: 12/16/2024 1131 Ordering Location: Endoscopy at [facility] Received: 12/16/2024 1145 Specialty Center at [address] Pathologist: Flako Murcia MD Specimen: Colon, rectum 2:47 PM ORACLE CONSULTANT [facility] FINAL DIAGNOSIS A. Colon, rectum, biopsy: Invasive squamous cell carcinoma, moderately differentiated, see comment Comment: A panel of immunohistochemical stains is performed. Tumor cells are immunohistochemically positive for p40 and negative for CDX2, supporting the diagnosis. Dr. Sami Shane is notified of the findings on December 17, 2024. RW has reviewed this case and concurs with the diagnosis. 2:47 PM ORACLE CONSULTANT [facility] Clinical Information Rectal mass Hematochezia 2:47 PM ORACLE CONSULTANT [facility] Microscopic Description Microscopic examination is performed. 2:47 PM ORACLE CONSULTANT [facility] Special Stains The stain controls have been reviewed and stain appropriately. 2:47 PM ORACLE CONSULTANT [facility] Gross Description A: The specimen is received in formalin and labeled with the patient's name and Colon, rectum. The specimen consists of multiple virgen-white irregular soft tissue fragments, ranging from 0.2 cm to 0.4 cm. The specimen is filtered and entirely submitted in one cassette. AW 2:47 PM ORACLE CONSULTANT [facility] Embedded Images 2:47 PM ORACLE CONSULTANT [facility] Tissue COLON STRUCTURE / Unknown 12/16/2024 11:31 AM ORACLE CONSULTANT 12/16/2024 11:45 AM ORACLE CONSULTANT Sami Shane MD LAB PATHOLOGY Performing Organization Address [facility] Co de Phone Number [facility] [address] [employer] [address] * POCT urine (12/16/2024 10:38 AM ORACLE CONSULTANT) Urine Test - POC Negative Negative POCT Control Line Present, Clear Background - Internal control Yes POCT Cartridge Lot # [id number] POCT Urine 12/16/2024 10:3 8 AM ORACLE CONSULTANT Sami Shane MD ET POINT OF CARE JERRI T ENTER/EDIT ORDERABLES Performing Organization Address [facility] Co de Phone Number POCT * Colonoscopy Diagnostic (12/16/2024 10:21 AM ORACLE CONSULTANT) Anatomical Region Laterality Modality Other 12/16/2024 10:2 1 AM ORACLE CONSULTANT Narrative 12/16/2024 10:21 AM ORACLE CONSULTANT Patient Name: Na Lei Procedure Date: 12/16/2024 [...] and oxygen saturations were monitored continuously. The [id number] was introduced through the anus and advanced [...] from the initial medication administration until the documentation billing clerk assists with initial maneuvers (biopsy / polypectomy [...] kind referral. Procedure Code(s): --- Professional --- 48519, Colonoscopy, flexible; with biopsy, single or multiple G0500, Moderate sedation services provided by the same physician or other qualified health healthcare business analyst performing a gastrointestinal endoscopic service that sedation supports, requiring the presence of an independent trained observer to assist in the monitoring of the patient's level of consciousness and physiological status; initial 15 minutes of intra-service time; patient age 5 years or older (additional time may be reported with 04614, as appropriate) 11242, Moderate sedation; each additional 15 minutes intraservice time Diagnosis Code(s): --- Professional --- K62.89, Other specified diseases of anus and rectum D49.0, Neoplasm of unspecified behavior of digestive system K56.690, Other partial intestinal obstruction R93.3, Abnormal findings on diagnostic imaging of other parts of digestive tract CPT copyright 3 [employer]. All rights reserved. The codes documented in this report are preliminary and upon senior center director review may be revised to meet current [...] and oxygen saturations were monitored continuously. The [id number] was introduced through the anus and advanced [...] from the initial medication administration until the documentation billing clerk assists with initial maneuvers (biopsy / polypectomy [...] kind referral. Procedure Code(s): --- Professional --- 96040, Colonoscopy, flexible; with biopsy, single or multiple G0500, Moderate sedation services provided by the same physician or other qualified health healthcare business analyst performing a gastrointestinal endoscopic service that sedation supports, requiring the presence of an independent trained observer to assist in the monitoring of the patient's level of consciousness and physiological status; initial 15 minutes of intra-service time; patient age 5 years or older (additional time may be reported with 02784, as appropriate) 97696, Moderate sedation; each additional 15 minutes intraservice time Diagnosis Code(s): --- Professional --- K62.89, Other specified diseases of anus and rectum D49.0, Neoplasm of unspecified behavior of digestive system K56.690, Other partial intestinal obstruction R93.3, Abnormal findings on diagnostic imaging of other parts of digestive tract CPT copyright 2022 [employer]. All rights reserved. The codes documented in this report are preliminary and upon senior center director review may be revised to meet current compliance requirements. Sami Shane MD 12/16/2024 11:43:03 AM Number of Addenda: 0 Note Initiated On: 12/16/2024 10:21 AM Endoscopy Report Librado Ferrer MD ET GI PROCEDURE AUDIEE SARA * (ABNORMAL) Comp Metabolic Panel (12/15/2024 3:54 PM ORACLE CONSULTANT) Sodium 139 136 - 145 mmol/L 12/15/2024 4:49 PM [facility] Potassium 3.6 3.5 - 5.1 mmol/L 12/15/2024 4:49 PM [facility] Chloride 105 98 - 109 mmol/L 12/15/2024 4:49 PM [facility] CO2 26 20 - 29 mmol/L 12/15/2024 4:49 PM [facility] Anion Gap 8 6 - 16 mmol/L 12/15/2024 4:49 PM [facility] Calcium 8.4 8.4 - 10.4 mg/dL 12/15/2024 4:49 PM [facility] BUN 9 7 - 26 mg/dL 12/15/2024 4:49 PM [facility] Creatinine 0.56 0.55 - 1.02 mg/dL 12/15/2024 4:49 PM [facility] Alkaline Phosphatase 292(H) 40 - 150 U/L 12/15/2024 4:49 PM [facility] AST (SGOT) 53(H) 10 - 40 U/L 12/15/2024 4:49 PM [facility] ALT (SGPT) 46 0 - 55 U/L 12/15/2024 4:49 PM [facility] Bilirubin, Total 0.3 0.2 - 1.2 mg/dL 12/15/2024 4:49 PM [facility] Protein, Total 6.9 6.4 - 8.3 g/dL 12/15/2024 4:49 PM [facility] Albumin 2.1(L) 3.5 - 5.0 g/dL 12/15/2024 4:49 PM [facility] Glucose 103(H) 70 - 100 mg/dL 12/15/2024 4:49 PM [facility] Comment:The given reference range is for the fasting state. Non-fasting reference range for glucose is 70 - 180 mg/dL. GFR, Estimated >60 >60 mL/min/1.7 3m2 12/15/2024 4:49 PM [facility] Hours Fasting 0.1 8 - 12 Hours 12/15/2024 4:49 PM [facility] Comment:Lab unable to obtain patient's fasting status at time of specimen collection. Blood Venipuncture / Unknown 12/15/2024 3:54 PM ORACLE CONSULTANT 12/15/2024 3:54 PM ORACLE CONSULTANT Mj Min MD LAB_1 Performing Organization Address City/State/[facility] Co de Phone Number [facility] [address] [place] [address] * US Pelvic Complete WO EV (12/15/2024 3:38 PM ORACLE CONSULTANT) Anatomical Region Laterality Modality Pelvis Ultrasound 12/15/2024 3:00 PM ORACLE CONSULTANT Impressions 12/15/2024 3:51 PM ORACLE CONSULTANT Mass posterior to the vagina may correspond to what appears to be a mass in the anterior wall of the rectum on CT. Narrative 12/15/2024 3:51 PM ORACLE CONSULTANT COMPARISON: None TECHNIQUE: Transabdominal imaging was performed. [...] of the rectum on CT. Kay Caceres MILLER APPRENTICE, DRESSED POULTRY GRADER RAD US * Cancer Antigen-GI (CA19-9) (12/15/2024 3:38 PM ORACLE CONSULTANT) Carbohydrate Ag 19-9 22 0 - 35 U/mL 12/16/2024 10:28 AM [facility] Blood Venipuncture / Unknown 12/15/2024 3:38 PM ORACLE CONSULTANT 12/15/2024 4:10 PM [facility] CENTRAL LAB - 12/16/2024 10:28 AM [facility] This assay has been shown to have [...] Mj Min MD LAB_1 Performing Organization Address City/[facility] Co de Phone Number [facility] [address] * HIV 1/2 Ag/Ab 4th Generation (12/15/2024 3:38 PM ORACLE CONSULTANT) HIV 1/2 Antigen/Antib michele (4th generation) Negative (Non Reactive) Negative (Non Reactive) 12/15/2024 8:50 PM ORACLE CONSULTANT [facility] Comment:HIV-1 p24 Antigen an d HIV-1/HIV-2 Antibody not detected Blood Venipuncture / Unknown 12/15/2024 3:38 PM ORACLE CONSULTANT 12/15/2024 4:10 PM ORACLE CONSULTANT Mj Min MD LAB_1 Performing Organization Address [facility] Co de Phone Number [facility] [address] [place] [address] * CA 125 (Carbohydrate Antigen 125) (12/15/2024 3:38 PM ORACLE CONSULTANT) Pathologist [facility] Cancer Antigen 125 24 0 - 35 U/mL 12/15/2024 9:31 PM ORACLE CONSULTANT [facility] Blood Venipuncture / Unknown 12/15/2024 3:38 PM ORACLE CONSULTANT 12/15/2024 4:10 PM ORACLE CONSULTANT Narrative [facility] - 12/15/2024 9:31 PM ORACLE CONSULTANT The [employer] CA125 Chemiluminescent assay is used. Results obtained with different test methods or kits cannot be used interchangeably. Mj Min MD LAB_1 Performing Organization Address [facility] Co de Phone Number [facility] [address] * Carcinoembryonic Antigen (CEA Blood) (12/15/2024 3:38 PM ORACLE CONSULTANT) Carcinoembryonic Antigen 2.3 0.0 - 5.0 ng/mL 12/15/2024 9:30 PM ORACLE CONSULTANT [facility] Blood Venipuncture / Unknown 12/15/2024 3:38 PM ORACLE CONSULTANT 12/15/2024 4:10 PM ORACLE CONSULTANT Narrative [facility] - 12/15/2024 9:30 PM ORACLE CONSULTANT The [employer] CEA Chemiluminescent immunoassay is used. Results obtained with different test methods or kits cannot be used interchangeably. Mj Min MD LAB_1 [facility] [address] [place] [address], [facility] * CT Abd Pelvis W IV Cont (12/14/2024 7:08 PM ORACLE CONSULTANT) Anatomical Region Laterality Modality Abdomen, Pelvis Computed Tomogra phy 12/14/2024 7:07 PM ORACLE CONSULTANT Impressions 12/15/2024 8:07 AM ORACLE CONSULTANT 1. Bilateral necrotic inguinal adenopathy, right greater than left. Findings are suspicious for metastatic disease. 2. Possible polypoid enhancing lesion of the anterior rectum. Recommend correlation with physical exam/sigmoidoscopy. Perirectal nodularity is concerning for lymphadenopathy. 3. Solitary right kidney noted. Narrative 12/15/2024 8:07 AM ORACLE CONSULTANT COMPARISON: None TECHNIQUE: Images were obtained through [...] * US Groin Rt (12/09/2024 7:08 PM ORACLE CONSULTANT) Anatomical Region Laterality Modality Pelvis Ultrasound 12/09/2024 6:40 PM ORACLE CONSULTANT Impressions 12/09/2024 7:23 PM ORACLE CONSULTANT Palpable area of concern in the right groin corresponds to a 5.3 x 5.3 x 4.2 cm mixed cystic and solid mass with peripheral flow. This may represent a necrotic lymph node or other cystic mass. Consider CT imaging for further evaluation. Narrative 12/09/2024 7:23 PM ORACLE CONSULTANT Examination: Grayscale and color Doppler imaging of [...] US * Pap Smear (10/26/2018 2:32 PM ORACLE CONSULTANT) 10/26/2018 2:32 PM ORACLE CONSULTANT Narrative PN SOFT - 11/11/2018 8:26 AM ORACLE CONSULTANT FINAL GYNECOLOGICAL CYTOLOGY REPORT Pathology #: [id number] Date Obtained: 10/26/2018 Date Received: 10/27/2018 INTERPRETATION/RESULTS: [...] and false-negative reports may occur. Performed at [address] [address] Dylan Veliz MD LAB_1 Performing Organization Address [facility] [[email or web address]] de Phone Number PN SOFT [address] [place] [address] * HEPATITIS C ANTIBODY, WITH REFLEX (11/20/2016 10:14 AM ORACLE CONSULTANT) Hepatitis C Antibody Nonreactive Nonreactive PN SOFT 11/20/2016 10:1 4 AM ORACLE CONSULTANT 11/20/2016 1:06 PM ORACLE CONSULTANT Narrative PN SOFT - 11/20/2016 2:28 PM ORACLE CONSULTANT Performed at [address] [address] CLIA number [id number] Dylan Veliz MD LAB_1 Performing Organization Address [facility] de Phone Number PN SOFT [address] [place] [address] from Last 3 Months or Most Recently Relevant to Health Maintenance Care Teams Mushroom Sorter Grader Relationship Specialty [place] [address] [place] [address] PCP - General Family Practice 05/02/23
--- OUTSIDE RECORDS SUMMARY | 2024-12-20 22:59 | XMS_ITS | Encounter Summary ---
Author Organization [facility] Address [address] [place] [address] Care Team Providers Care Silk Spreader Name Role Phone Javed Fishman MD Primary Care Provider [phone]- [phone] Reason for Visit * Reason Comments Lump Encounter Details Date Type Department Care Team (Late st Contact Info) Description 11/29/2024 Nurse Triage [facility] [id number] [place] [id number] Javed Fishman MD [address] [place] [address] [place] [address] Lump Social History Tobacco Use Types Packs/Day [...] fever Protocols used: Skin Lump or Localized [id number] TOP SUPPORT CONSULTANT documented in this encounter Plan of Treatment Not on file documented as of this encounter Visit Diagnoses Not on filedocumented in this encounter Care Teams Silk Spreader Relationship Specialty [place] [address] [place] Hernandez [address] PCP - General Family Practice 05/02/23 documented as of this encounter
--- OUTSIDE RECORDS SUMMARY | 2024-12-20 22:59 | XMS_ITS | Encounter Summary ---
Author Organization [facility] Address [address] [address] Care Team Providers Care Fender Repairer Name Role Phone Javed Fishman MD Primary Care Provider +1- [phone] Reason for Visit * Procedure/Equipment (Routine) - Incomplete Specialty Diagnoses / Procedures Referred By Contac t Referred To Contact Diagnoses Lymphadenopathy Procedures US Groin Rt Mj Min MD [address] [place] [address] Referral ID Status Reason Start Date Expiration Date V isits Requested Visits Authorized [id number] Incomplete 12/07/2024 03/08/2026 1 1 Encounter Details Date Type Department Care Team (Late st Contact Info) Description 12/09/2024 6:45 PM INJECTION MAINTENANCE TECHNICIAN Ancillary Procedure [facility] [place] [address] [address] [address] [place] [address] Mj Min MD [address] [place] [address] Lymphadenopathy Social History Tobacco Use Types Packs/Day [...] US GROIN RT Routine 12/09/2024 7:08 PM INJECTION MAINTENANCE TECHNICIAN Lymphadenopathy documented in this encounter Results * US Groin Rt (12/09/2024 7:08 PM INJECTION MAINTENANCE TECHNICIAN) Anatomical Region Laterality Modality Pelvis Ultrasound 12/09/2024 6:40 PM INJECTION MAINTENANCE TECHNICIAN Impressions 12/09/2024 7:23 PM INJECTION MAINTENANCE TECHNICIAN Palpable area of concern in the right groin corresponds to a 5.3 x 5.3 x 4.2 cm mixed cystic and solid mass with peripheral flow. This may represent a necrotic lymph node or other cystic mass. Consider CT imaging for further evaluation. Narrative 12/09/2024 7:23 PM INJECTION MAINTENANCE TECHNICIAN Examination: Grayscale and color Doppler imaging of [...] CT imagingfor further evaluation. Mj Min MD [facility] US documented in this encounter Visit Diagnoses Diagnosis Lymphadenopathy Enlargement of lymph nodes documented in this encounter Care Teams Fender Repairer Relationship Specialty [place] [address] [address] [place] [address] PCP - General Family Practice 05/02/23 documented as of this encounter
--- OUTSIDE RECORDS SUMMARY | 2024-12-20 22:59 | XMS_ITS | Encounter Summary ---
Author Organization [facility] Address [address], [place] [address] Care Team Providers Care Herbarium Worker Name Role Phone Javed Fishman MD Primary Care Provider +1- [phone] Reason for Referral * Procedure/Equipment (Routine) - Incomplete Specialty Diagnoses / Procedures Referred By Contac t Referred To Contact Diagnoses Rectal bleeding Procedures CT Abd Pelvis W IV Cont Mj Min MD [address] [place] [address] Referral ID Status Reason Start Date Expiration Date V isits Requested Visits Authorized [id number] Incomplete 12/14/2024 03/15/2026 1 1 AD INSPECTOR Encounter Details Date Type Department Care Team (Late st Contact Info) Description 12/14/2024 Notes/Orders Specialty Center 39[address] General Surgery [address] [place] [address] [address] [place], [place] [address] Mj Min MD [address] [place], [place] [address] Rectal bleeding (Primary Dx) Social History Tobacco [...] Carcinoembryonic Antigen (CEA Blood) (12/15/2024 3:38 PM THREAD INSPECTOR) Carcinoembryonic Antigen 2.3 0.0 - 5.0 ng/mL 12/15/2024 9:30 PM THREAD INSPECTOR [facility] Blood Venipuncture / Unknown 12/15/2024 3:38 PM THREAD INSPECTOR 12/15/2024 4:10 PM THREAD INSPECTOR Narrative [facility] - 12/15/2024 9:30 PM THREAD INSPECTOR The [employer] CEA Chemiluminescent immunoassay is used. Results obtained with different test methods or kits cannot be used interchangeably. Mj Min MD LAB_[facility] [address] [place], [place] [address] * Cancer Antigen-GI (CA19-9) (12/15/2024 3:38 PM THREAD INSPECTOR) Carbohydrate Ag 19-9 22 0 - 35 U/mL 12/16/2024 10:28 AM THREAD INSPECTOR [facility] Blood Venipuncture / Unknown 12/15/2024 3:38 PM THREAD INSPECTOR 12/15/2024 4:10 PM THREAD INSPECTOR Narrative [facility] - 12/16/2024 10:28 AM THREAD INSPECTOR This assay has been shown to have interference from high levels of biotin. Specimens from patients who are undergoing biotin therapy and/or ingesting biotin supplements may contain high levels of biotin which may cause falsely low results. Interpret the results in light of the total clinical presentation of the patient. The Fuel (fuelpowered[employer]) Access CA199 Chemiluminescent immunoassay is used. Results obtained with different methods or kits cannot be used interchangeably Mj Min MD LAB_1 [facility] [address] * CA 125 (Carbohydrate Antigen 125) (12/15/2024 3:38 PM THREAD INSPECTOR) Cancer Antigen 125 24 0 - 35 U/mL 12/15/2024 9:31 PM THREAD INSPECTOR [facility] Blood Venipuncture / Unknown 12/15/2024 3:38 PM THREAD INSPECTOR 12/15/2024 4:10 PM THREAD INSPECTOR Narrative [facility] - 12/15/2024 9:31 PM THREAD INSPECTOR The [employer] CA125 Chemiluminescent assay is used. Results obtained with different test methods or kits cannot be used interchangeably. Mj Min MD LAB[facility] [address] * CT Abd Pelvis W IV Cont (12/14/2024 7:08 PM THREAD INSPECTOR) Anatomical Region Laterality Modality Abdomen, Pelvis Computed Tomogra phy 12/14/2024 7:07 PM THREAD INSPECTOR Impressions 12/15/2024 8:07 AM THREAD INSPECTOR 1. Bilateral necrotic inguinal adenopathy, right greater than left. Findings are suspicious for metastatic disease. 2. Possible polypoid enhancing lesion of the anterior rectum. Recommend correlation with physical exam/sigmoidoscopy. Perirectal nodularity is concerning for lymphadenopathy. 3. Solitary right kidney noted. Narrative 12/15/2024 8:07 AM THREAD INSPECTOR COMPARISON: None TECHNIQUE: Images were obtained through [...] anus documented in this encounter Care Teams Herbarium Worker Relationship Specialty [place] [address] [place] [address] PCP - General Family Practice 05/02/23 documented as of this encounter
--- OUTSIDE RECORDS SUMMARY | 2024-12-20 22:59 | XMS_ITS | Encounter Summary ---
Author Organization [facility] Address [address] [address] Care Team Providers Care Rubber Splicer Name Role Phone Javed Fishman MD Primary Care Provider +1- [phone] Encounter Details Date Type Department Care Team (Late st Contact Info) Description 12/17/2024 11:10 AM WAD BLANKING PRESS ADJUSTER Lab Visit Specialty Center 3931 Outpatient Laboratory [address] [place], [place] [address] Rectal bleeding Social History Tobacco Use Types [...] HEMOGLOBIN, BLOOD Routine 12/17/2024 10: 34 AM WAD BLANKING PRESS ADJUSTER Rectal bleeding documented in this encounter Results * (ABNORMAL) Hemoglobin, Blood (HGB) (12/17/2024 10:34 AM WAD BLANKING PRESS ADJUSTER) Hemoglobin 7.5(L) 12.0 - 15.5 g/dL 12/17/2024 10:51 AM WAD BLANKING PRESS ADJUSTER [facility] Blood Venipuncture / Unknown 12/17/2024 10:34 AM WAD BLANKING PRESS ADJUSTER 12/17/2024 10:37 AM WAD BLANKING PRESS ADJUSTER Mikhail Nunez MD LAB_1 [facility] [address] documented in this encounter Visit Diagnoses Diagnosis Rectal bleeding Hemorrhage of rectum and anus documented in this encounter Care Teams Rubber Splicer Relationship Specialty [place] [address] [place] [address] PCP - General Family Practice 05/02/23 documented as of this encounter
--- OUTSIDE RECORDS SUMMARY | 2024-12-20 22:59 | XMS_ITS | Encounter Summary ---
Author Organization [facility] Address [address] [address] Care Team Providers Care Neon Sign Maker Name Role Phone Javed Fishman MD Primary Care Provider +1- [phone] Reason for Referral * Consult/Transfer Care (Routine) - New Request Specialty Diagnoses / Procedures Referred By Contac t Referred To Contact Diagnoses Lymph node enlargement Chalino Alicia MD [address] [place] [address] Referral ID Status Reason Start Date Expiration Date V isits Requested Visits Authorized [id number] New Request 11/29/2024 02/28/2026 1 1 Scheduling Instructions Your clinician has recommended an appointment with [facility] General Surgery. You can quickly make your appointment online at [email or web address]. You can also call [phone] for help scheduling your appointment. We suggest you call your health insurance company about your coverage and benefits for this appointment. Question Answer Appointment Urgency? Within 1 Week (Urgent) L ENGINEERING DESIGN DRAFTSPERSON Reason for Visit * Reason Comments Lump Vaginal Pain Encounter Details Date Type Department Care Team (Late st Contact Info) Description 11/29/2024 5:00 PM CIVIL ENGINEERING DESIGN DRAFTSPERSON Office Visit [facility] [address] [facility] [address] [place] [address] Chalino Alicia MD [address] [place] [address] Lymph node enlargement Social History [...] Comments Blood Pressure 102/67 11/29/2024 4:50 PM CIVIL ENGINEERING DESIGN DRAFTSPERSON Pulse 122 11/29/2024 4:50 PM CIVIL ENGINEERING DESIGN DRAFTSPERSON Temperature 37.1 C (98.8 F) 11/29/2024 4:50 PM CIVIL ENGINEERING DESIGN DRAFTSPERSON Respiratory Rate 16 11/29/2024 4:50 PM CIVIL ENGINEERING DESIGN DRAFTSPERSON Oxygen Saturation 100% 11/29/2024 4:50 PM CIVIL ENGINEERING DESIGN DRAFTSPERSON Inhaled Oxygen Concentration - - Weight - [...] there are no focal deficits present. SKIN: [place] warm and dry without rashes in the [...] concerns. Call here if any concerns whatsoever. L ENGINEERING DESIGN DRAFTSPERSON documented in this encounter Nursing Notes * Michelle Osborne RN - 11/29/2024 5:00 PM CST Na Lei is a 39 y.o.female presents to the Urgent Care for Lump and Vaginal Pain Symptoms began: 1 month(s) ago. Fever: absent. Other associated symptoms: vaginal lump, painful, no drainage. Did have a UTI about a month ago. Patient requests an excuse letter for work/school: No L ENGINEERING DESIGN DRAFTSPERSON documented in this encounter Plan of Treatment Scheduled Referrals Name Type Priority Associated Diagnoses Orde r Schedule Surgery Consult-Adults Referral Routine Lymph node enlargement Ordered: 11/29/2024 documented as of this encounter Visit Diagnoses Diagnosis Lymph node enlargement Enlargement of lymph nodes documented in this encounter Care Teams Neon Sign Maker Relationship Specialty [place] [address] [place] [address] PCP - General Family Practice 05/02/23 documented as of this encounter
--- OUTSIDE RECORDS SUMMARY | 2024-12-20 22:59 | XMS_ITS | Encounter Summary ---
Author Organization [facility] Address [address] [place] [address] Care Team Providers Care Profiler Operator Name Role Phone Javed Fishman MD Primary Care Provider +1- [phone] Reason for Visit * Reason Comments Colonoscopy Prep Encounter Details Date Type Department Care Team (Late st Contact Info) Description 12/15/2024 Nurse Triage Careline [address], [place] [address] Unassigned, Provider [address] [place] [address] Colonoscopy Prep Social History Tobacco Use Types [...] Protocols used: Information Only Call - No [id number] ING AND COOLING SYSTEMS ENGINEER * Tierney Eckert - 12/15/2024 5:04 PM [...] the stated timeframe, please call us back ING AND COOLING SYSTEMS ENGINEER documented in this encounter Plan of Treatment Not on file documented as of this encounter Visit Diagnoses Not on filedocumented in this encounter Care Teams Profiler Operator Relationship Specialty [place] [address] [place] [address] PCP - General Family Practice 05/02/23 documented as of this encounter
--- OUTSIDE RECORDS SUMMARY | 2024-12-20 22:59 | XMS_ITS | Encounter Summary ---
Author Organization [facility] Address [address] [address] Care Team Providers Care Manager Credit Risk Name Role Phone Javed Fishman MD Primary Care Provider +1- [phone] Reason for Visit * Reason Comments PAP,ROUTINE * Consult/Transfer Care (Routine) - New Request Specialty Diagnoses / Procedures Referred By Contac t Referred To Contact Diagnoses History of loop electrical excision procedure (LEEP) Mj Min MD [address] [place] [address] Referral ID Status Reason Start Date Expiration Date V isits Requested Visits Authorized [id number] New Request 12/07/2024 03/08/2026 1 1 Encounter Details Date Type Department Care Team (Latest Contact Info) Description 12/14/2024 8:20 AM CARPENTER REPAIR Office Visit Obstetrics & Gynecology at [address] [address] Kay Caceres, AIR QUALITY MANAGER, STILL PUMP OPERATOR [address] [place] [address] Pelvic pain in female (Primary Dx); Screening [...] Comments Blood Pressure 98/65 12/14/2024 8:38 AM CARPENTER REPAIR Pulse 121 12/14/2024 8:38 AM CARPENTER REPAIR Temperature - - Respiratory Rate - - Oxygen Saturation - - Inhaled Oxygen Concentration - - Weight 55.8 kg (123 lb) 12/14/2024 8:38 AM CARPENTER REPAIR Height - - Body Mass Index 21.11 08/27/2021 6:47 PM CDT documented in this encounter Patient Instructions * Patient Instructions* Kay Caceres APRN, CNP - 12/14/2024 8:20 AM CARPENTER REPAIR To schedule CT scan of abdomen/pelvis please call [phone] to schedule your appointment. Please schedule pelvic US. ENTER REPAIR documented in this encounter Progress Notes * [...] CT scan of abdomen/pelvis and f/u with GARDEN CENTER MANAGER as she has not had GARDEN CENTER MANAGER care in years. Of note, she also [...] Respiratory: breathing comfortably on room air Pelvic: real estate agency principal present. Normal appearing external genitalia with exception [...] Kay Caceres APRN, CNP 12/14/2024, 9:15 AM ENTER REPAIR documented in this encounter Plan of Treatment Pending Results Name Type Priority Associated Diagnoses Date /Time PAP Test Lab Routine Screening for malignant neoplasm of cervix 12/14/2024 2:06 PM CARPENTER REPAIR HPV Genotyping PCR (Cervical/Endocervic al ONLY) Microbiology Routine Special screening examination for human papillomavirus (HPV) 12/14/2024 2:06 PM CARPENTER REPAIR documented as of this encounter Visit Diagnoses Diagnosis Pelvic pain in female- Primary Unspecified symptom associated with female genital organs Screening for malignant neoplasm of cervix Screening for malignant neoplasm of the cervix Special screening examination for human papillomavirus (HPV) documented in this encounter Care Teams Manager Credit Risk Relationship Specialty [place] [address] [place] [address] PCP - General Family Practice 05/02/23 documented as of this encounter
--- OUTSIDE RECORDS SUMMARY | 2024-12-20 22:59 | XMS_ITS | Encounter Summary ---
Author Organization [facility] Address [address] [place] [address] Care Team Providers Care Quarter Section Ironer Name Role Phone Javed Fishman MD Primary Care Provider +1- [phone] Reason for Visit * Reason Comments CHEST PAIN Encounter Details Date Type Department Care Team (Late st Contact Info) Description 12/18/2024 Nurse Triage Careline [address] [facility] [place], [place] [address] Donaldo Cooper CHEST PAIN Social History Tobacco [...] crushing, pressure-like, or heavy Protocols used: Chest Sikn-DEJPI-ND Plan: EMS call 911 NOW Advised patient/caller to call back CareLine if there are further questions or concerns. The CareLine is available 09/06. Pt verbalized understanding and agreed with the plan. Rachna Ayala RN Careline6:08 PM 12/18/2024 INE CERAMIC COATER * Donaldo Cooper - 12/18/2024 5:57 PM CST Verified patient identity using three identifiers: Yes Caller's relationship to patient: Spouse/Significant Other, Do you have a provider/clinic where you are seen for this? PN Specialty Symptoms Describe the reason for call/symptoms (include location and duration if applicable): Pt is having chest pain and SOB. Plan:Caller transferred directly to CareLine nurse. INE CERAMIC COATER documented in this encounter Plan of Treatment Not on file documented as of this encounter Visit Diagnoses Not on filedocumented in this encounter Care Teams Quarter Section Ironer Relationship Specialty [place] [address] [place] [address] PCP - General Family Practice 05/02/23 documented as of this encounter
--- OUTSIDE RECORDS SUMMARY | 2024-12-20 22:59 | XMS_ITS | Encounter Summary ---
Author Organization [facility] Address [address], [place] [address] Care Team Providers Care Hosiery Mater Name Role Phone Javed Fishman MD Primary Care Provider +1- [phone] Reason for Visit * Reason Comments Pre-visit Planning Entered automaticall y based on patient selection in [facility]. Encounter Details Date Type Department Care Team (Late st Contact Info) Description 12/15/2024 5:05 PM TURBINE MEASUREMENTS ENGINEER E-Visit Specialty Center 3931 General Surgery [address] [facility] [address] [place], [place] [address] Mj Min MD [address] [place], [place] [address] Chief Comp: Pre-visit Planning Social History Tobacco [...] on filedocumented in this encounter Care Teams Hosiery Mater Relationship Specialty [place] [address] [place] [address] PCP - General Family Practice 05/02/23 documented as of this encounter
--- OUTSIDE RECORDS SUMMARY | 2024-12-20 22:59 | XMS_ITS | Encounter Summary ---
Author Organization [facility] Address [address], [place] [address] Care Team Providers Care Solutions Developer Name Role Phone Javed Fishman MD Primary Care Provider +1- [phone] Reason for Visit * Reason Comments Appt. Scheduled Encounter Details Date Type Department Care Team (Late st Contact Info) Description 12/16/2024 Telephone Specialty Center 3931 Colorectal Surgery [address] [facility] [address] [place], [place] [address] Vikki Rosario, RN Appt. Scheduled Social History [...] depending on pathology results. Callback number provided. AVEMENT PROGRAM COORDINATOR documented in this encounter Plan of Treatment Not on file documented as of this encounter Visit Diagnoses Not on filedocumented in this encounter Care Teams Solutions Developer Relationship Specialty [place] [address] [place] [address] PCP - General Family Practice 05/02/23 documented as of this encounter
--- OUTSIDE RECORDS SUMMARY | 2024-12-20 22:59 | XMS_ITS | Encounter Summary ---
Author Organization [facility] Address [address], [place] [address] Care Team Providers Care Director Of Radiology Name Role Phone Javed Fishman MD Primary Care Provider +1- [phone] Reason for Visit * Reason Comments RESULTS, TEST Encounter Details Date Type Department Care Team (Late st Contact Info) Description 12/13/2024 Telephone Specialty Center 3931 General Surgery [address] [facility] [address] [place], [place] [address] Lisseth Robins, RN RESULTS, TEST Social History [...] tryto call her back. Please call @ [phone] OPATHIC RESIDENT documented in this encounter Plan of Treatment Not on file documented as of this encounter Visit Diagnoses Not on filedocumented in this encounter Care Teams Director Of Radiology Relationship Specialty [place] [address] [place] [address] PCP - General Family Practice 05/02/23 documented as of this encounter
--- OUTSIDE RECORDS SUMMARY | 2024-12-20 22:59 | XMS_ITS | Encounter Summary ---
Author Organization [facility] Address [address], [place] [address] Care Team Providers Care Room Maid Name Role Phone Javed Fishman MD Primary Care Provider +1- [phone] Reason for Visit * Procedure/Equipment (Routine) - Incomplete Specialty Diagnoses / Procedures Referred By Contac t Referred To Contact Diagnoses Rectal bleeding Procedures CT Chest W IV Cont Mikhail Nunez MD [address] [place] [address] [place] [address] Referral ID Status Reason Start Date Expiration Date V isits Requested Visits Authorized [id number] Incomplete 12/17/2024 03/18/2026 1 1 Encounter Details Date Type Department Care Team (Late st Contact Info) Description 12/17/2024 11:20 AM CRATE BUILDER Ancillary Procedure [facility] [address] Scan [address] [place] [address] Mikhail Nunez MD [address] [place] [address] [place] [address] Rectal bleeding Social History Tobacco Use Types [...] IV CONT STAT 12/17/2024 11 :41 AM CRATE BUILDER Rectal bleeding documented in this encounter Results * CT Chest W IV Cont (12/17/2024 11:41 AM CRATE BUILDER) Anatomical Region Laterality Modality Chest, Lung Computed Tomogra phy 12/17/2024 11:3 5 AM CRATE BUILDER Impressions 12/17/2024 12:50 PM CRATE BUILDER Unremarkable chest CT with no evidence of metastatic disease. Narrative 12/17/2024 12:50 PM CRATE BUILDER COMPARISON: CT abdomen and pelvis 12/14/2024 TECHNIQUE: [...] For 1 dose Given 12/17/2024 11:42 AM CRATE BUILDER 75 mL sodium chloride 0.9% injection 10 mL 10 mL, Intravenous, ONCE, On Fri12/17/24 at 1200, For 1 dose Given 12/17/2024 11:42 AM CRATE BUILDER 10 mL documented in this encounter Care Teams Room Maid Relationship Specialty [place] [address] [place] [address] PCP - General Family Practice 05/02/23 documented as of this encounter
--- OUTSIDE RECORDS SUMMARY | 2024-12-20 22:59 | XMS_ITS | Encounter Summary ---
Author Organization [facility] Address [address] [place] [address] Care Team Providers Care Brand Communications Manager Name Role Phone Javed Fishman MD Primary Care Provider +1- [phone] Reason for Visit * Reason Comments GAS, PAIN Encounter Details Date Type Department Care Team (Late st Contact Info) Description 12/17/2024 Nurse Triage Careline [address], [place] [address] Unassigned, Provider [address] [place] [address] GAS, PAIN Social History Tobacco Use Types [...] the triager Protocols used: Abdominal Pain - [id number] Plan: Clinician consult Clinician name: Paged at 2047 Page returned at 2052 Assessment shared, orders are: 1) Go to ER for evaluation, could have a perforation Telephone Orders Read Back to clinician. 2058 - Returned call to pt, LMTCB, called again and LMTCB Rachna Ayala RN Careline9:06 PM 12/17/2024 OAT OPERATOR * Roxy De Oliveira - 12/17/2024 6:23 [...] the stated timeframe, please call us back OAT OPERATOR documented in this encounter Plan of Treatment Not on file documented as of this encounter Visit Diagnoses Not on filedocumented in this encounter Care Teams Brand Communications Manager Relationship Specialty [place] [address] [place] [address] PCP - General Family Practice 05/02/23 documented as of this encounter
--- OUTSIDE RECORDS SUMMARY | 2024-12-20 22:59 | XMS_ITS | Encounter Summary ---
Author Organization [facility] Address [address], [place] [address] Care Team Providers Care Demolition Engineer Name Role Phone Javed Fishman MD Primary Care Provider +1- [phone] Encounter Details Date Type Department Care Team (Late st Contact Info) Description 12/10/2024 Notes/Orders Specialty Center 3931 General Surgery [address] [facility] [address] [place], [place] [address] Mj Min MD [address] [place] [address] Lymphadenopathy (Primary Dx) Social History Tobacco Use [...] nodes documented in this encounter Care Teams Demolition Engineer Relationship Specialty [place] [address] [place] [address] PCP - General Family Practice 05/02/23 documented as of this encounter
--- OUTSIDE RECORDS SUMMARY | 2024-12-20 22:59 | XMS_ITS | Encounter Summary ---
Author Organization [facility] Address [address], [place] [address] Care Team Providers Care Stitcher Standard Machine Name Role Phone Javed Fishman MD Primary Care Provider +1- [phone] Encounter Details Date Type Department Care Team (Late st Contact Info) Description 12/09/2024 E-Visit Endoscopy at [facility] at [address] [place] [address] Mychart, [place] [address] Social History Tobacco Use Types Packs/Day Years [...] on filedocumented in this encounter Care Teams Stitcher Standard Machine Relationship Specialty [place] [address] [place] [address] PCP - General Family Practice 05/02/23 documented as of this encounter
--- OUTSIDE RECORDS SUMMARY | 2024-12-20 22:59 | XMS_ITS | Encounter Summary ---
[facility] Organization [facility] Address [address], [place] [address] Care Team Providers Care Police Chief Deputy Name Role Phone Javed Fishman MD Primary Care Provider +1- [phone] Reason for Visit * Reason Comments Test Request Lab Test Needed Encounter Details Date Type Department Care Team (Late st Contact Info) Description 12/14/2024 Telephone Specialty Center 3931 General Surgery [address] [facility] [address] [place], [place] [address] Ronit Almaguer RN Test Request; Lab Test [...] scan set up along with labs needed. OVOLTAIC SOLAR CELL DESIGNER documented in this encounter Plan of Treatment Not on file documented as of this encounter Visit Diagnoses Not on filedocumented in this encounter Care Teams Police Chief Deputy Relationship Specialty [place] [address] [place] [address] PCP - General Family Practice 05/02/23 documented as of this encounter
--- OUTSIDE RECORDS SUMMARY | 2024-12-20 22:59 | XMS_ITS | Encounter Summary ---
Author Organization [facility] Address [address], [place] [address] Care Team Providers Care Tower Excavator Operator Name Role Phone Javed Fishman MD Primary Care Provider +1- [phone] Reason for Referral * Procedure/Equipment (Routine) - New Request Specialty Diagnoses / Procedures Referred By Contac t Referred To Contact Diagnoses Rectal mass Rectal bleeding Procedures Colonoscopy Diagnostic Sami Shane MD [address] [place] [address] Referral ID Status Reason Start Date Expiration Date V isits Requested Visits Authorized [id number] New Request 02/13/2025 12/16/2026 1 1 ZONTAL BORING MILL OPERATOR * Procedure/Equipment (Routine) - New Request Specialty Diagnoses / Procedures Referred By Contac t Referred To Contact Diagnoses Rectal mass Hematochezia Procedures Colonoscopy Diagnostic Librado Ferrer MD [address] [place] [address] Referral ID Status Reason Start Date Expiration Date V isits Requested Visits Authorized [id number] New Request 02/12/2025 12/15/2026 1 1 ZONTAL BORING MILL OPERATOR Reason for Visit * Procedure/Equipment (Routine) - New Request Specialty Diagnoses / Procedures Referred By Renan helton Referred To Contact Diagnoses Rectal mass Hematochezia Procedures [place] [address] [place] [phone] Referral ID Status Reason Start Date Expiration Date V isits Requested Visits Authorized [id number] New Request 02/12/2025 12/15/2026 1 1 Encounter Details Date Type Department Care Team (Late st Contact Info) Description 12/16/2024 9:43 AM HORIZONTAL BORING MILL OPERATOR - 12/16/2024 11:59 PM HORIZONTAL BORING MILL OPERATOR Hospital Encounter Endoscopy at [facility] at [address] [place], [place] [address] Sami Shane MD [address] [place] [id number] Rectal bleeding (Primary Dx); Rectal mass; Hematochezia [...] Comments Blood Pressure 90/55 12/16/2024 11:29 AM HORIZONTAL BORING MILL OPERATOR Pulse 93 12/16/2024 11:29 AM HORIZONTAL BORING MILL OPERATOR Temperature - - Respiratory Rate 14 12/16/2024 11:29 AM HORIZONTAL BORING MILL OPERATOR Oxygen Saturation 100% 12/16/2024 11:29 AM HORIZONTAL BORING MILL OPERATOR Inhaled Oxygen Concentration - - Weight 55.8 kg (123 lb) 12/16/2024 10:17 AM HORIZONTAL BORING MILL OPERATOR Height 162.6 cm (5' 4) 12/16/2024 10:17 AM HORIZONTAL BORING MILL OPERATOR Body Mass Index 21.11 12/16/2024 10:17 AM HORIZONTAL BORING MILL OPERATOR documented in this encounter Progress Notes * Librado Ferrer MD - 12/16/2024 10:40 AM CST SERA Min. Dr. Shane to follow pathology and has ordered CT chest/abdomen/pelvis. BM ZONTAL BORING MILL OPERATOR documented in this encounter Procedure Notes * [...] and oxygen saturations were monitored continuously. The [id number] was introduced through the anus and advanced [...] from the initial medication administration until the edm operator assists with initial maneuvers (biopsy / polypectomy [...] kind referral. Procedure Code(s): --- Professional --- 74777, Colonoscopy, flexible; with biopsy, single or multiple G0500, Moderate sedation services provided by the same physician or other qualified health childcare attendant performing a gastrointestinal endoscopic service that sedation supports, requiring the presence of an independent trained observer to assist in the monitoring of the patient's level of consciousness and physiological status; initial 15 minutes of intra-service time; patient age 5 years or older (additional time may be reported with 45029, as appropriate) [address], Moderate sedation; each additional 15 minutes intraservice time Diagnosis Code(s): --- Professional --- K62.89, Other specified diseases of anus and rectum D49.0, Neoplasm of unspecified behavior of digestive system K56.690, Other partial intestinal obstruction R93.3, Abnormal findings on diagnostic imaging of other parts of digestive tract CPT copyright 2022 [employer]. All rights reserved. The codes documented in this report are preliminary and upon central supply tech review may be revised to meet current compliance requirements. Sami Shane MD 12/16/2024 11:43:03 AM Number of Addenda: 0 Note Initiated On: 12/16/2024 10:21 AM Endoscopy Report ZONTAL BORING MILL OPERATOR documented in this encounter Plan of Treatment Scheduled Orders Name Type Priority Associated Diagnoses Orde r Schedule Colonoscopy Diagnostic GI Routine Rectal mass Rectal bleeding Expected: 02/13/2025, Expires: 12/16/2025 documented as of this encounter Procedures Procedure Name Priority Date/Time Associated Diagnosis Comments SURGICAL PATHOLOGY, GI Routine 12/16/2024 11:31 AM HORIZONTAL BORING MILL OPERATOR Rectal mass Hematochezia POCT URINE Routine 12/16/2024 10:38 AM HORIZONTAL BORING MILL OPERATOR COLONOSCOPY DIAGNOSTIC Routine 12/16/2024 10:21 AM HORIZONTAL BORING MILL OPERATOR Rectal mass Hematochezia documented in this encounter Results * Surgical Path - GI (12/16/2024 11:31 AM HORIZONTAL BORING MILL OPERATOR) Case Report Surgical Pathology Case: [id number] Authorizing Provider: Sami Shane MD Collected: 12/16/2024 1131 Ordering Location: Endoscopy at [facility] Received: 12/16/2024 1145 [facility] at [place] [address] Building Pathologist: Flako Murcia MD Specimen: Colon, rectum 2:47 PM HORIZONTAL BORING MILL OPERATOR [facility] FINAL DIAGNOSIS A. Colon, rectum, biopsy: Invasive squamous cell carcinoma, moderately differentiated, see comment Comment: A panel of immunohistochemical stains is performed. Tumor cells are immunohistochemically positive for p40 and negative for CDX2, supporting the diagnosis. Dr. Sami Shane is notified of the findings on December 17, 2024. RW has reviewed this case and concurs with the diagnosis. 2:47 PM HORIZONTAL BORING MILL OPERATOR [facility] Clinical Information Rectal mass Hematochezia 2:47 PM HORIZONTAL BORING MILL OPERATOR [facility] Microscopic Description Microscopic examination is performed. 2:47 PM HORIZONTAL BORING MILL OPERATOR [facility] Special Stains The stain controls have been reviewed and stain appropriately. 2:47 PM HORIZONTAL BORING MILL OPERATOR [facility] Gross Description A: The specimen is received in formalin and labeled with the patient's name and Colon, rectum. The specimen consists of multiple virgen-white irregular soft tissue fragments, ranging from 0.2 cm to 0.4 cm. The specimen is filtered and entirely submitted in one cassette. AW 2:47 PM HORIZONTAL BORING MILL OPERATOR [facility] Embedded Images 2:47 PM HORIZONTAL BORING MILL OPERATOR [facility] Tissue COLON STRUCTURE / Unknown 12/16/2024 11:31 AM HORIZONTAL BORING MILL OPERATOR 12/16/2024 11:45 AM HORIZONTAL BORING MILL OPERATOR Sami Shane MD LAB PATHOLOGY Performing Organization Address City/[facility]/ZIP Co de Phone Number [facility] [address] * POCT urine (12/16/2024 10:38 AM HORIZONTAL BORING MILL OPERATOR) Urine Test - POC Negative Negative POCT Control Line Present, Clear Background - Internal control Yes POCT Cartridge Lot # [id number] POCT Urine 12/16/2024 10:3 8 AM HORIZONTAL BORING MILL OPERATOR Sami Shane MD ET POINT OF CARE JERRI T ENTER/EDIT ORDERABLES Performing Organization Address City/[facility] Co de Phone Number POCT * Colonoscopy Diagnostic (12/16/2024 10:21 AM HORIZONTAL BORING MILL OPERATOR) Anatomical Region Laterality Modality Other 12/16/2024 10:2 1 AM HORIZONTAL BORING MILL OPERATOR Narrative 12/16/2024 10:21 AM HORIZONTAL BORING MILL OPERATOR Patient Name: Na Lei Procedure Date: 12/16/2024 [...] and oxygen saturations were monitored continuously. The [id number] was introduced through the anus and advanced [...] from the initial medication administration until the edm operator assists with initial maneuvers (biopsy / polypectomy [...] kind referral. Procedure Code(s): --- Professional --- 32626, Colonoscopy, flexible; with biopsy, single or multiple G0500, Moderate sedation services provided by the same physician or other qualified health childcare attendant performing a gastrointestinal endoscopic service that sedation supports, requiring the presence of an independent trained observer to assist in the monitoring of the patient's level of consciousness and physiological status; initial 15 minutes of intra-service time; patient age 5 years or older (additional time may be reported with 98851, as appropriate) [address], Moderate sedation; each additional 15 minutes intraservice time Diagnosis Code(s): --- Professional --- K62.89, Other specified diseases of anus and rectum D49.0, Neoplasm of unspecified behavior of digestive system K56.690, Other partial intestinal obstruction R93.3, Abnormal findings on diagnostic imaging of other parts of digestive tract CPT copyright 2022 [employer]. All rights reserved. The codes documented in this report are preliminary and upon central supply tech review may be revised to meet current [...] and oxygen saturations were monitored continuously. The [id number] was introduced through the anus and advanced [...] from the initial medication administration until the edm operator assists with initial maneuvers (biopsy / polypectomy [...] kind referral. Procedure Code(s): --- Professional --- 29552, Colonoscopy, flexible; with biopsy, single or multiple G0500, Moderate sedation services provided by the same physician or other qualified health childcare attendant performing a gastrointestinal endoscopic service that sedation supports, requiring the presence of an independent trained observer to assist in the monitoring of the patient's level of consciousness and physiological status; initial 15 minutes of intra-service time; patient age 5 years or older (additional time may be reported with 38796, as appropriate) [address]78, Moderate sedation; each additional 15 minutes intraservice time Diagnosis Code(s): --- Professional --- K62.89, Other specified diseases of anus and rectum D49.0, Neoplasm of unspecified behavior of digestive system K56.690, Other partial intestinal obstruction R93.3, Abnormal findings on diagnostic imaging of other parts of digestive tract CPT copyright 2022 [employer]. All rights reserved. The codes documented in this report are preliminary and upon central supply tech review may be revised to meet current [...] endoscopy procedure visit) Given 12/16/2024 11:08 AM HORIZONTAL BORING MILL OPERATOR 25 mcg Given 12/16/2024 11:03 AM HORIZONTAL BORING MILL OPERATOR 50 mcg Given 12/16/2024 11:01 AM HORIZONTAL BORING MILL OPERATOR 50 mcg midazolam (VERSED) injection 0.5-2 mg 0.5-2 mg, Intravenous, PRN, Sedation, Starting on Flor 12/16/24 at 0710, Until Fri12/17/24 at 0205, Administer in 0.5-2 mg increments as directed by endoscopy procedure Practitioner up to a total of 8 mg. (Give only during endoscopy procedure visit) Given 12/16/2024 11:08 AM HORIZONTAL BORING MILL OPERATOR 2 mg Given 12/16/2024 11:03 AM HORIZONTAL BORING MILL OPERATOR 1 mg Given 12/16/2024 11:01 AM HORIZONTAL BORING MILL OPERATOR 2 mg sodium chloride 0.9% injection 10-60 mL 10-60 mL, Intravenous, PRN, Line Patency, For port access and deaccess only, Starting on Flor 12/16/24 at 0710, Until 12/17/24 at 0205 Given 12/16/2024 11:12 AM HORIZONTAL BORING MILL OPERATOR 20 mL documented in this encounter Care Teams Tower Excavator Operator Relationship Specialty [place] [address] [place] [address] PCP - General Family Practice 05/02/23 documented as of this encounter
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
--- OUTSIDE RECORDS SUMMARY | 2024-12-20 22:59 | XMS_ITS | Encounter Summary ---
Author Organization [facility] Address [address] [address] Care Team Providers Care Press Secretary Name Role Phone Javed Fishman MD Primary Care Provider +1- [phone] Reason for Referral * Therapies (Routine) - New Request Specialty Diagnoses / Procedures Referred By Contac t Referred To Contact Diagnoses Rectal bleeding Rectal mass Mikhail Nunez MD [address] [facility] [address] [place] [address] Referral ID Status Reason Start Date Expiration Date V isits Requested Visits Authorized [id number] New Request 12/17/2024 02/15/2025 1 1 Scheduling Instructions Your clinician has recommended an appointment with [facility]. You may call [phone] to schedule your appointment. We suggest you call your health insurance company about your coverage and benefits for this appointment. Question Answer Appointment Urgency? Within 1 Week (Urgent) Surgery within the last seven days? No Concurrent Chemotherapy? No Chemotherapy in the past month? No ILE ENGINEER * Consult/Transfer Care (Routine) - New Request Specialty Diagnoses / Procedures Referred By Contac t Referred To Contact Diagnoses Rectal bleeding Rectal mass Mikhail Nunez MD [address] [address] Referral ID Status Reason Start Date Expiration Date V isits Requested Visits Authorized [id number] New Request 12/17/2024 03/18/2026 1 1 Scheduling Instructions Your clinician has recommended an appointment with [facility]. You can quickly make your appointment online at [facility]/schedule. You can also call [phone] for help scheduling your appointment. We suggest you call your health insurance company about your coverage and benefits for this appointment. Question Answer Appointment Urgency? Within 1 Week (Urgent) ILE ENGINEER * Procedure/Equipment (Routine) - Incomplete Specialty Diagnoses / Procedures Referred By Contac t Referred To Contact Diagnoses Rectal bleeding Procedures CT Chest W IV Cont Mikhail Nunez MD [address] [address] Referral ID Status Reason Start Date Expiration Date V isits Requested Visits Authorized [id number] Incomplete 12/17/2024 03/18/2026 1 1 ILE ENGINEER Reason for Visit * Reason Comments CONSULT * Consult/Transfer Care (Routine) - New Request Specialty Diagnoses / Procedures Referred By Contac t Referred To Contact Diagnoses Rectal cancer ([facility]) Sami Shane MD [address] [place] [address] Referral ID Status Reason Start Date Expiration Date V isits Requested Visits Authorized [id number] New Request 12/16/2024 03/17/2026 1 1 Encounter Details Date Type Department Care Team (Late st Contact Info) Description 12/17/2024 9:30 AM TEXTILE ENGINEER Office Visit Specialty Center 3931 Colorectal Surgery [address] [facility] [place] [address] Mikhail Nunez MD [address] [facility] [address] [place] [address] Rectal bleeding (Primary Dx); Rectal mass Social [...] 55.8 kg (123 lb) 12/17/2024 9:43 AM TEXTILE ENGINEER Height 162.6 cm (5' 4) 12/17/2024 9:43 AM TEXTILE ENGINEER Body Mass Index 21.11 12/17/2024 9:43 AM TEXTILE ENGINEER documented in this encounter Progress Notes * Mila Mesa, RN - 12/17/2024 9:[address] chest scheduled for today. Patient to go to lab for blood work today. Message sent to oncology scheduling. ILE ENGINEER * Lachelle Patel RN - 12/17/2024 9:30 AM CST B2B Appointment Setter faxed radiation therapy referral to [place] location ([facility]) per pt request. ILE ENGINEER * Mikhail Nunez MD - 12/17/2024 9:30 [...] software. Despite proofreading, occasional wrong word or '[id number]' substitutions may have occurred due to limitations of the software. Read the chart carefully and recognize, using context, where these substitutions may have occurred. Kathy Nunez MD FACS FASCRS Colorectal Staff Surgeon [facility] RN: [phone] Clinic Appointment [phone] SurgeryScheduling [phone] ILE ENGINEER documented in this encounter Plan of Treatment Scheduled Referrals Name Type Priority Associated Diagnoses Orde r Schedule ONCOLOGY CONSULT-ADULTS Referral Routine Rectal bleeding Rectal mass Ordered: 12/17/2024 Radiation Therapy Referral Routine Rectal bleeding Rectal mass Ordered: 12/17/2024 documented as of this encounter Results * CT Chest W IV Cont (12/17/2024 11:41 AM TEXTILE ENGINEER) Anatomical Region Laterality Modality Chest, Lung Computed Tomogra phy 12/17/2024 11:3 5 AM TEXTILE ENGINEER Impressions 12/17/2024 12:50 PM TEXTILE ENGINEER Unremarkable chest CT with no evidence of metastatic disease. Narrative 12/17/2024 12:50 PM TEXTILE ENGINEER COMPARISON: CT abdomen and pelvis 12/14/2024 TECHNIQUE: [...] (ABNORMAL) Hemoglobin, Blood (HGB) (12/17/2024 10:34 AM TEXTILE ENGINEER) Hemoglobin 7.5(L) 12.0 - 15.5 g/dL 12/17/2024 10:51 AM TEXTILE ENGINEER [facility] Blood Venipuncture / Unknown 12/17/2024 10:34 AM TEXTILE ENGINEER 12/17/2024 10:37 AM TEXTILE ENGINEER Mikhail Nunez MD LAB_1 [facility] [address] documented in this encounter Visit Diagnoses Diagnosis Rectal bleeding- Primary Hemorrhage of rectum and anus Rectal mass Other symptoms involving digestive system Rectal bleeding Hemorrhage of rectum and anus documented in this encounter Care Teams Press Secretary Relationship Specialty [place] [address] [place] [address] PCP - General Family Practice 05/02/23 documented as of this encounter
[2024-12-20 23:00] LABS: Basophils Percent Auto 0.2 % (0.0-3.0); Eosinophils Percent Auto 4.5 % (0.0-7.0); Hematocrit 26.5 % (33.0-51.0); Hemoglobin* 8.1 gm/dL (12.0-16.0); Immature Granulocytes Pct Auto 1.3 %; Lymphocytes Percent Auto 12.4 % (20-44); Mean Corpuscular HGB Conc 31 gm/dL (32-36); Mean Corpuscular Hemoglobin 26 pg (26-34); Mean Corpuscular Volume 84 fL (80-100); Monocytes Percent Auto 6.3 % (0.0-11.0); Neutrophils Percent Auto 75.3 % (42.0-72.0); Platelet Count* 987 K/uL (140-440); Red Blood Count 3.15 m/uL (4.00-5.20)
--- OUTSIDE RECORDS SUMMARY | 2024-12-20 23:00 | XMS_ITS | Encounter Summary ---
Author Organization [facility] Address [address] [address] Care Team Providers Care Damper Maker Name Role Phone Javed Fishman MD Primary Care Provider +1- [phone] Reason for Referral * Procedure/Equipment (Routine) - Incomplete Specialty Diagnoses / Procedures Referred By Contac t Referred To Contact Diagnoses Lymphadenopathy Procedures US Bx Lymph Node Inguin Rt US Bx Lymph Node IR Bx Lymph Node Mj Min MD [address] [place] [address] Referral ID Status Reason Start Date Expiration Date V isits Requested Visits Authorized [id number] Incomplete 12/15/2024 03/16/2026 1 1 IDENT/GM PRODUCTION & LIVE EXPERIENCES Encounter Details Date Type Department Care Team (Late st Contact Info) Description 12/15/2024 Notes/Orders [facility] Surgeon Non-Employed [address] [place] [address] Mj Min MD [address] [place], [place] [id number] Lymphadenopathy (Primary Dx); Rectal bleeding Social History [...] anus documented in this encounter Care Teams Damper Maker Relationship Specialty [place] [address] [place] [address] PCP - General Family Practice 05/02/23 documented as of this encounter
--- OUTSIDE RECORDS SUMMARY | 2024-12-20 23:00 | XMS_ITS | Encounter Summary ---
Author Organization [facility] Address [address], [place] [address] Care Team Providers Care Mill Washer Name Role Phone Javed Fishman MD Primary Care Provider +1- [phone] Reason for Visit * Reason Comments Forms/Letter Entered automaticall y based [facility] Encounter Details Date Type Department Care Team (Late st Contact Info) Description 12/14/2024 3:50 PM SIZING MACHINE OPERATOR E-Visit Specialty Center [address] General Surgery [address] [facility] [address] [place] [address] Mj Min MD [address] [place], [place] [id number] Chief Comp: Forms/Letter Social History Tobacco Use [...] on filedocumented in this encounter Care Teams Mill Washer Relationship Specialty [place] [address] [place] [address] PCP - General Family Practice 05/02/23 documented as of this encounter
--- OUTSIDE RECORDS SUMMARY | 2024-12-20 23:00 | XMS_ITS | Encounter Summary ---
Author Organization [facility] Address [address] [place] [address] Care Team Providers Care Visual Basic Programmer Name Role Phone Clinic, [facility] Reason for Visit * Reason Comments Abnormal Labs * Auth/Cert Specialty Diagnoses / Procedures Referred By Renan t Referred To Contact EMERGENCY MEDICINE Diagnoses Anemia, unspecified type Rectal cancer (H) [facility] Emergency Dept [address] [place] [address] Phone: tel:[phone] fax: Referral ID Status Reason Start Date Expiration Date Visits Re quested Visits Authorized [id number] 1 1 Encounter Details Date Type Department Care Team (Late st Contact Info) Description 12/18/2024 7:31 PM COLLABORATING SUPERVISING PHYSICIAN - 12/19/2024 3:18 AM [facility] Hospital Encounter [facility] Emergency Dept [address] [place] [address] Shaheen Aggarwal MD EMERGENCY PHYSICIAN [facility] [address] [place] [address] Darius Arriaga MD [address] [place], [place] [id number] Anemia, unspecified type; Rectal cancer (H) Discharge [...] on file Legal Sex Female 3:27 AM COLLABORATING SUPERVISING PHYSICIAN Gender Identity Not on file Sexual Orientation Not on file documented as of this encounter Last Filed Vital Signs Vital Sign Reading Time Taken Comments Blood Pressure 104/62 12/19/2024 1:58 AM COLLABORATING SUPERVISING PHYSICIAN Pulse 97 12/19/2024 1:58 AM COLLABORATING SUPERVISING PHYSICIAN Temperature 36.7 C (98.1 F) 12/19/2024 1:58 AM COLLABORATING SUPERVISING PHYSICIAN Respiratory Rate 20 12/19/2024 1:58 AM COLLABORATING SUPERVISING PHYSICIAN Oxygen Saturation 98% 12/19/2024 1:04 AM COLLABORATING SUPERVISING PHYSICIAN Inhaled Oxygen Concentration - - Weight 56.5 kg (124 lb 9 oz) 12/18/2024 7:27 PM COLLABORATING SUPERVISING PHYSICIAN Height 162.6 cm (5' 4) 12/18/2024 9:01 PM COLLABORATING SUPERVISING PHYSICIAN Body Mass Index 21.38 12/18/2024 7:27 PM COLLABORATING SUPERVISING PHYSICIAN documented in this encounter Discharge Summaries * Darius Arriaga MD - 12/19/2024 3:01 AM CST [facility] Hospitalist Discharge Summary Date of Admission: 12/18/2024 [...] carcinoma The patient underwent colonoscopy on 12/16/2024 [facility]. Exam was notable for a partially obstructing [...] to have her cancer treated at the [facility]. -She ended up leaving AGAINST MEDICAL ADVICE [...] minutes discharging this patient. Darius Arriaga MD [facility] EMERGENCY DEPT [address] [facility] [place] [address] Physical Exam Vital Signs: Temp: 98.1 ??F [...] no rash Primary Care Physician [facility] Discharge Orders No discharge procedures on [...] tablet by mouthdaily Allergies No Known Allergies ABORATING SUPERVISING PHYSICIAN documented in this encounter Medications at Time [...] Arriaga MD - 12/18/2024 11:02 PM CST [facility] History and Physical - Hospitalist Service [...] carcinoma The patient underwent colonoscopy on 12/16/2024 [facility]. Exam was notable for a partially obstructing [...] to have her cancer treated at the [facility]. -Colorectal and oncology consult in the a.m. 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 The patient was recently diagnosed with invasive rectal squamous cell carcinoma. She had colonoscopy on 12/16 at [facility] pathology returned positive for rectal squama cell [...] GENITOURINARY SURGERY Left Nephrectomy as a child. METAL ROOFER SURGERY Leep procedure Prior to Admission Medications [...] previous visit (from the past 24 hours). ABORATING SUPERVISING PHYSICIAN documented in this encounter ED Notes * Komal Grijalva RN - 12/19/2024 3:00 AM CST PT chose to leave AMA. Hospitalist Dr. Arriaga spoke with patient and answered all questions. ABORATING SUPERVISING PHYSICIAN * Alisha Ngo RN - 12/18/2024 10:46 PM CST [facility] ED Nurse Handoff Report ED Chief complaint: Abnormal Labs . ED Diagnosis: Final diagnoses: None Allergies: No Known Allergies Code Status: Full Code Activity level - Baseline/Home: independent. Activity Level - Current: independent. Lift room needed: No. Bariatric: No Commercial Photographer Needed: No Isolation: No. Infection: Not Applicable. [...] POS Antibody Screen Negative SPECIMEN EXPIRATION DATE [id number] PREPARE RED BLOOD CELLS (UNIT) Blood Component Type Red Blood Cells Product Code P2569P57 Unit Status Ready for issue Unit Number [id number] CROSSMATCH Compatible CODING SYSTEM [id number] PREPARE RED BLOOD CELLS (UNIT) ABO/RH TYPE [...] Nurse Name: Alisha Ngo RN 10:46 PM ABORATING SUPERVISING PHYSICIAN * Shaheen Aggarwal MD - 12/18/2024 7:34 [...] GENITOURINARY SURGERY Left Nephrectomy as a child. METAL ROOFER SURGERY Leep procedure Physical Exam Patient Vitals [...] POS Antibody Screen Negative SPECIMEN EXPIRATION DATE [id number] PREPARE RED BLOOD CELLS (UNIT) Blood Component Type Red Blood Cells Product Code [id number] Unit Status Ready for issue Unit Number [id number] CROSSMATCH Compatible CODING SYSTEM [id number] PREPARE RED BLOOD CELLS (UNIT) TRANSFUSE RED [...] Documentation None Medical Decision Making / Diagnosis NASEEM Na Lei is a 39 year old [...] statements to me. Shaheen Aggarwal MD 12/18/24 3077 ABORATING SUPERVISING PHYSICIAN * Yasmin Gomez RN - 12/18/2024 7:29 [...] weeks ago she was passing large clots. ABORATING SUPERVISING PHYSICIAN documented in this encounter Miscellaneous Notes * Significant Event - Darius Arriaga MD - 12/19/2024 2:58 AM COLLABORATING SUPERVISING PHYSICIAN Significant Event Note Notified at 0245 that [...] was notified that she can leave AMA. ABORATING SUPERVISING PHYSICIAN documented in this encounter Plan of Treatment Pending Results Name Type Priority Associated Diagnoses Date /Time Blood Culture Line, venous Microbiology STAT 12/19/2024 2:42 AM COLLABORATING SUPERVISING PHYSICIAN documented as of this encounter Procedures Procedure Name Priority Date/Time Associated Diagnosis Comments RBC AND PLATELET MORPHOLOGY STAT 12/19/2024 2:42 AM COLLABORATING SUPERVISING PHYSICIAN CBC WITH PLATELETS AND DIFFERENTIAL STAT 12/19/2024 2:42 AM COLLABORATING SUPERVISING PHYSICIAN CBC WITH PLATELETS & DIFFERENTIAL STAT 12/19/2024 2:42 AM COLLABORATING SUPERVISING PHYSICIAN BLOOD CULTURE STAT 12/19/2024 2:42 AM COLLABORATING SUPERVISING PHYSICIAN ROUTINE UA WITH MICROSCOPIC REFLEX TO CULTURE STAT 12/19/2024 1:11 AM COLLABORATING SUPERVISING PHYSICIAN TRANSFUSE RED BLOOD CELLS (UNIT) STAT 12/18/2024 11:46 PM COLLABORATING SUPERVISING PHYSICIAN PREPARE RED BLOOD CELLS (UNIT) STAT 12/18/2024 10:32 PM COLLABORATING SUPERVISING PHYSICIAN CBC WITH PLATELETS AND DIFFERENTIAL STAT 12/18/2024 7:59 PM COLLABORATING SUPERVISING PHYSICIAN TYPE AND SCREEN, ADULT STAT 7:59 PM COLLABORATING SUPERVISING PHYSICIAN PROCALCITONIN STAT 12/18/2024 7:59 PM COLLABORATING SUPERVISING PHYSICIAN CBC WITH PLATELETS & DIFFERENTIAL STAT 12/18/2024 7:59 PM COLLABORATING SUPERVISING PHYSICIAN INR STAT 12/18/2024 7:59 PM COLLABORATING SUPERVISING PHYSICIAN COMPREHENSIVE METABOLIC PANEL STAT 12/18/2024 7:59 PM COLLABORATING SUPERVISING PHYSICIAN ABO/RH TYPE AND SCREEN STAT 7:59 PM COLLABORATING SUPERVISING PHYSICIAN documented in this encounter Results * RBC and Platelet Morphology (12/19/2024 2:42 AM COLLABORATING SUPERVISING PHYSICIAN) RBC Morphology Confirmed RBC Indices 12/19/2024 3:45 AM COLLABORATING SUPERVISING PHYSICIAN [facility] Platelet Assessment Automated Count Confirmed. Platelet morphology is normal. Automated Count Confirmed. Platelet morphology is normal. EILEEN 12/19/2024 3:45 AM COLLABORATING SUPERVISING PHYSICIAN [facility] Blood STRUCTURE OF RIGHT UPPER LIMB / Unknown Venipuncture / Unknown 12/19/2024 2:42 AM COLLABORATING SUPERVISING PHYSICIAN 12/19/2024 2:47 AM COLLABORATING SUPERVISING PHYSICIAN us Darius Arriaga MD LAB - BLOOD ORDERABLES Fi nal Result [facility] LABORATORY [facility] Lab [address] Lab (1st floor, no room number) [place] [address], [facility] * (ABNORMAL) CBC with platelets and differential (12/19/2024 2:42 AM COLLABORATING SUPERVISING PHYSICIAN) [facility] WBC Count 23.4(H) 4.0 - 11.0 10e3/uL 12/19/2024 3:45 AM COLLABORATING SUPERVISING PHYSICIAN [facility] RBC Count 2.94(L) 3.80 - 5.20 10e6/uL 12/19/2024 3:45 AM COLLABORATING SUPERVISING PHYSICIAN [facility] Hemoglobin 7.7(L) 11.7 - 15.7 g/dL 12/19/2024 3:45 AM COLLABORATING SUPERVISING PHYSICIAN [facility] Hematocrit 24.5(L) 35.0 - 47.0 % 12/19/2024 3:45 AM COLLABORATING SUPERVISING PHYSICIAN [facility] MCV 83 78 - 100 fL 12/19/2024 3:45 AM COLLABORATING SUPERVISING PHYSICIAN [facility] MCH 26.2(L) 26.5 - 33.0 pg 12/19/2024 3:45 AM COLLABORATING SUPERVISING PHYSICIAN [facility] MCHC 31.4(L) 31.5 - 36.5 g/dL 12/19/2024 3:45 AM COLLABORATING SUPERVISING PHYSICIAN [facility] RDW 14.7 10.0 - 15.0 % 12/19/2024 3:45 AM COLLABORATING SUPERVISING PHYSICIAN [facility] Platelet Count 896(H) 150 - 450 10e3/uL 12/19/2024 3:45 AM COLLABORATING SUPERVISING PHYSICIAN [facility] % Neutrophils 70 % 12/19/2024 3:45 AM COLLABORATING SUPERVISING PHYSICIAN [facility] % Lymphocytes 15 % 12/19/2024 3:45 AM COLLABORATING SUPERVISING PHYSICIAN [facility] % Monocytes 8 % 12/19/2024 3:45 AM COLLABORATING SUPERVISING PHYSICIAN [facility] % Eosinophils 6 % 12/19/2024 3:45 AM COLLABORATING SUPERVISING PHYSICIAN [facility] % Basophils 1 % 12/19/2024 3:45 AM COLLABORATING SUPERVISING PHYSICIAN [facility] % Immature Granulocytes 1 % 12/19/2024 3:45 AM COLLABORATING SUPERVISING PHYSICIAN [facility] NRBCs per 100 WBC 0 <1 /100 025 3:45 AM COLLABORATING SUPERVISING PHYSICIAN LABORATORY Absolute Neutrophils 16.4(H) 1.6 - 8.3 10e3/uL 12/19/2024 3:45 AM COLLABORATING SUPERVISING PHYSICIAN LABORATORY Absolute Lymphocytes 3.5 0.8 - 5.3 10e3/uL 12/19/2024 3:45 AM COLLABORATING SUPERVISING PHYSICIAN LABORATORY Absolute Monocytes 1.8(H) 0.0 - 1.3 10e3/uL 12/19/2024 3:45 AM COLLABORATING SUPERVISING PHYSICIAN LABORATORY Absolute Eosinophils 1.4(H) 0.0 - 0.7 10e3/uL 12/19/2024 3:45 AM COLLABORATING SUPERVISING PHYSICIAN LABORATORY Absolute Basophils 0.1 0.0 - 0.2 10e3/uL 12/19/2024 3:45 AM COLLABORATING SUPERVISING PHYSICIAN LABORATORY Absolute Immature Granulocytes 0.2 <=0.4 10e3/uL 12/19/2024 3:45 AM COLLABORATING SUPERVISING PHYSICIAN LABORATORY Absolute NRBCs 0.0 10e3/uL 12/19/2024 3:45 AM COLLABORATING SUPERVISING PHYSICIAN LABORATORY Blood STRUCTURE OF RIGHT UPPER LIMB / Unknown Venipuncture / Unknown 12/19/2024 2:42 AM COLLABORATING SUPERVISING PHYSICIAN 12/19/2024 2:47 AM COLLABORATING SUPERVISING PHYSICIAN Result [facility] Darius Arriaga MD LAB - BLOOD ORDERABLES Fi nal Result LABORATORY [facility] Lab [address] [facility] Lab (1st floor, no room number) [place] [address], [facility] * Transfuse red blood cells (unit) (12/19/2024 2:00 AM COLLABORATING SUPERVISING PHYSICIAN) Shaheen Aggarwal MD BLOOD TRANSFUSION ORDERABLES Final Result * Transfuse red blood cells (unit), 1 Units (12/19/2024 2:00 AM COLLABORATING SUPERVISING PHYSICIAN) Shaheen Aggarwal MD BLOOD TRANSFUSION ORDERABLES Final Result * (ABNORMAL) UA with Microscopic reflex to Culture (12/19/2024 1:11 AM COLLABORATING SUPERVISING PHYSICIAN) Color Urine Straw Colorless, Straw, Light Yellow, Yellow 12/19/2024 1:42 AM COLLABORATING SUPERVISING PHYSICIAN LABORATORY Appearance Urine Clear Clear 12/19/19 1:42 AM COLLABORATING SUPERVISING PHYSICIAN LABORATORY Glucose Urine Negative Negative mg/dL 12/19/2024 1:42 AM COLLABORATING SUPERVISING PHYSICIAN LABORATORY Bilirubin Urine Negative Negative 1:42 AM COLLABORATING SUPERVISING PHYSICIAN [facility] LAB[facility] Ketones Urine Negative Negative mg/dL 12/19/2024 1:42 AM COLLABORATING SUPERVISING PHYSICIAN [facility] Specific Willard Urine 1.003 1.003 - 1.035 12/19/2024 1:42 AM COLLABORATING SUPERVISING PHYSICIAN [facility] Blood Urine Negative Negative 12/19/2024 1:42 AM COLLABORATING SUPERVISING PHYSICIAN [facility] pH Urine 6.0 5.0 - 7.0 12/19/2024 1:42 AM COLLABORATING SUPERVISING PHYSICIAN [facility] Protein Albumin Urine Negative Negative mg/dL 12/19/2024 1:42 AM COLLABORATING SUPERVISING PHYSICIAN [facility] Urobilinogen Urine Normal Normal, 2.0 mg/dL 12/19/2024 1:42 AM COLLABORATING SUPERVISING PHYSICIAN [facility] Nitrite Urine Negative Negative 12/19/2024 1:42 AM COLLABORATING SUPERVISING PHYSICIAN [facility] Leukocyte Esterase Urine Negative Negative 12/19/2024 1:42 AM COLLABORATING SUPERVISING PHYSICIAN LABORATORY RBC Urine 0 <=2 /HPF 12/19/2024 1:42 AM COLLABORATING SUPERVISING PHYSICIAN [facility] WBC Urine <1 <=5 /HPF 12/19/2024 1:42 AM COLLABORATING SUPERVISING PHYSICIAN LABORATORY Squamous Epithelials Urine 2(H) <=1 /HPF 12/19/2024 1:42 AM COLLABORATING SUPERVISING PHYSICIAN LABORATORY Urine URINE SPECIMEN OBTAINED BY CLEAN CATCH PROCEDURE / Unknown Non-blood Collection / Unknown 12/19/2024 1:11 AM COLLABORATING SUPERVISING PHYSICIAN 12/19/2024 1:15 AM COLLABORATING SUPERVISING PHYSICIAN Narrative [facility] LAB[facility] - 12/19/2024 1:42 AM COLLABORATING SUPERVISING PHYSICIAN Urine Culture not indicated us Darius Arriaga MD LAB - URINE ORDERABLES Fi nal Result LABORATORY [facility] [address] Lab (1st floor, no room number) [place] [address] * Prepare red blood cells (unit) (12/18/2024 10:32 PM COLLABORATING SUPERVISING PHYSICIAN) Pathologist [facility] Blood Component Type Red Blood Cells RH BLOOD BANK Product Code [id number] RH BLOO D BANK Unit Status Transfused RH BLOO D BANK Unit Number [id number] RH B LOOD BANK CROSSMATCH Compatible RH BLOOD BANK CODING SYSTEM [id number] RH BLO OD BANK ISSUE DATE AND TIME [id number] RH BLOOD BANK UNIT ABO/RH O+ RH BLOOD BANK UNIT TYPE ISBT 5100 RH BL OOD BANK 12/18/2024 10:3 2 PM COLLABORATING SUPERVISING PHYSICIAN Shaheen Aggarwal MD BLOOD BANK PRODUCT ORDERABLE S Final Result RH BLOOD BANK [address] [place] [address], [facility] * Procalcitonin (12/18/2024 7:59 PM COLLABORATING SUPERVISING PHYSICIAN) Procalcitonin 0.09 <0.50 ng/mL 12/19/2024 1:49 AM COLLABORATING SUPERVISING PHYSICIAN [facility] Comment: Interpretation and Recommendations <0.5 [...] See Procalcitonin Guidance document for more details. [email or web address] Factors that may affect PCT levels (not [...] Unknown Venipuncture / Unknown 12/18/2024 7:59 PM COLLABORATING SUPERVISING PHYSICIAN 12/18/2024 8:07 PM COLLABORATING SUPERVISING PHYSICIAN us Darius Arriaga MD LAB - BLOOD ORDERABLES Fi nal Result RH LABORATORY [facility] [address] [facility] Lab (1st floor, no room number) [place] [address] * Adult Type and Screen (12/18/2024 7:59 PM COLLABORATING SUPERVISING PHYSICIAN) ABO/RH(D) O POS 12/18/2024 7:36 PM COLLABORATING SUPERVISING PHYSICIAN RH BLOOD BANK Antibody Screen Negative Negative 12/18/2024 7:36 PM COLLABORATING SUPERVISING PHYSICIAN RH BLOOD BANK SPECIMEN EXPIRATION DATE [id number] 12/18/2024 7:36 PM COLLABORATING SUPERVISING PHYSICIAN RH BLOOD BANK Blood STRUCTURE OF RIGHT UPPER LIMB / Unknown Venipuncture / Unknown 12/18/2024 7:59 PM COLLABORATING SUPERVISING PHYSICIAN 12/18/2024 8:07 PM COLLABORATING SUPERVISING PHYSICIAN us Shaheen Aggarwal MD LAB - BLOOD BANK TEST ORDER Final Result Performing Organization Address City/[facility]/ZIP Co de Phone Number BLOOD BANK [address] [place] [place] [address] * (ABNORMAL) CBC with platelets and differential (12/18/2024 7:59 PM COLLABORATING SUPERVISING PHYSICIAN) WBC Count 27.5(H) 4.0 - 11.0 10e3/uL 12/18/2024 9:00 PM COLLABORATING SUPERVISING PHYSICIAN [facility] LAB[facility] RBC Count 2.71(L) 3.80 - 5.20 10e6/uL 12/18/2024 9:00 PM COLLABORATING SUPERVISING PHYSICIAN [facility] LAB[facility]ORY Hemoglobin 6.9(LL) 11.7 - 15.7 g/dL 12/18/2024 9:00 PM COLLABORATING SUPERVISING PHYSICIAN [facility] LAB[facility] Hematocrit 22.4(L) 35.0 - 47.0 % 12/18/2024 9:00 PM COLLABORATING SUPERVISING PHYSICIAN RH LAB[facility]ATORY MCV 83 78 - 100 fL 12/18/2024 9:00 PM COLLABORATING SUPERVISING PHYSICIAN [facility] LAB[facility]ORY MCH 25.5(L) 26.5 - 33.0 pg 12/18/2024 9:00 PM COLLABORATING SUPERVISING PHYSICIAN [facility] MCHC 30.8(L) 31.5 - 36.5 g/dL 12/18/2024 9:00 PM COLLABORATING SUPERVISING PHYSICIAN LABORATORY RDW 14.9 10.0 - 15.0 % 12/18/2024 9:00 PM COLLABORATING SUPERVISING PHYSICIAN LABORATORY Platelet Count 940(H) 150 - 450 10e3/uL 12/18/2024 9:00 PM COLLABORATING SUPERVISING PHYSICIAN LABORATORY % Neutrophils 78 % 12/18/2024 9:00 PM COLLABORATING SUPERVISING PHYSICIAN LABORATORY % Lymphocytes 11 % 12/18/2024 9:00 PM COLLABORATING SUPERVISING PHYSICIAN LABORATORY % Monocytes 6 % 12/18/2024 9:00 PM COLLABORATING SUPERVISING PHYSICIAN LABORATORY % Eosinophils 4 % 12/18/2024 9:00 PM COLLABORATING SUPERVISING PHYSICIAN LABORATORY % Basophils 1 % 12/18/2024 9:00 PM COLLABORATING SUPERVISING PHYSICIAN LABORATORY % Immature Granulocytes 1 % 12/18/2024 9:00 PM COLLABORATING SUPERVISING PHYSICIAN LABORATORY NRBCs per 100 WBC 0 <1 /100 025 9:00 PM COLLABORATING SUPERVISING PHYSICIAN LABORATORY Absolute Neutrophils 21.5(H) 1.6 - 8.3 10e3/uL 12/18/2024 9:00 PM COLLABORATING SUPERVISING PHYSICIAN LABORATORY Absolute Lymphocytes 3.0 0.8 - 5.3 10e3/uL 12/18/2024 9:00 PM COLLABORATING SUPERVISING PHYSICIAN LABORATORY Absolute Monocytes 1.5(H) 0.0 - 1.3 10e3/uL 12/18/2024 9:00 PM COLLABORATING SUPERVISING PHYSICIAN LABORATORY Absolute Eosinophils 1.1(H) 0.0 - 0.7 10e3/uL 12/18/2024 9:00 PM COLLABORATING SUPERVISING PHYSICIAN LABORATORY Absolute Basophils 0.1 0.0 - 0.2 10e3/uL 12/18/2024 9:00 PM COLLABORATING SUPERVISING PHYSICIAN LABORATORY Absolute Immature Granulocytes 0.3 <=0.4 10e3/uL 12/18/2024 9:00 PM COLLABORATING SUPERVISING PHYSICIAN LABORATORY Absolute NRBCs 0.0 10e3/uL 12/18/2024 9:00 PM COLLABORATING SUPERVISING PHYSICIAN LABORATORY Blood STRUCTURE OF RIGHT UPPER LIMB / Unknown Venipuncture / Unknown 12/18/2024 7:59 PM COLLABORATING SUPERVISING PHYSICIAN 12/18/2024 8:07 PM COLLABORATING SUPERVISING PHYSICIAN Shaheen Aggarwal MD LAB - BLOOD ORDERABLES Final Result LABORATORY [facility] Lab [address] Lab (1st floor, no room number) [place] [address] * (ABNORMAL) INR (12/18/2024 7:59 PM COLLABORATING SUPERVISING PHYSICIAN) INR 1.39(H) 0.85 - 1.15 12/18/2024 8:51 PM COLLABORATING SUPERVISING PHYSICIAN LABORATORY Blood STRUCTURE OF RIGHT UPPER LIMB / Unknown Venipuncture / Unknown 12/18/2024 7:59 PM COLLABORATING SUPERVISING PHYSICIAN 12/18/2024 8:07 PM COLLABORATING SUPERVISING PHYSICIAN Shaheen Aggarwal MD LAB - BLOOD ORDERABLES Final Result LABORATORY [facility] [address] Lab (1st floor, no room number) [place] [address] * (ABNORMAL) Comprehensive metabolic panel (12/18/2024 7:59 PM COLLABORATING SUPERVISING PHYSICIAN) Sodium 136 135 - 145 mmol/L 12/18/2024 8:34 PM [facility] Potassium 3.9 3.4 - 5.3 mmol/L 12/18/2024 8:34 PM [facility] Carbon Dioxide (CO2) 24 22 - 29 mmol/L 12/18/2024 8:34 PM [facility] Anion Gap 13 7 - 15 mmol/L 12/18/2024 8:34 PM [facility] Urea Nitrogen 6.6 6.0 - 20.0 mg/dL 12/18/2024 8:34 PM [facility] Creatinine 0.55 0.51 - 0.95 mg/dL 12/18/2024 8:34 PM [facility] GFR Estimate >90 >60 mL/min/1.7 3m2 12/18/2024 8:34 PM [facility] Comment:eGFR calculated usin 2020 CKD-EPI equation. Calcium 8.6(L) 8.8 - 10.4 mg/dL 12/18/2024 8:34 PM [facility] Chloride 99 98 - 107 mmol/L 12/18/2024 8:34 PM [facility] Glucose 110(H) 70 - 99 mg/dL 12/18/2024 8:34 PM COLLABORATING SUPERVISING PHYSICIAN [facility] LAB[facility]ORY Alkaline Phosphatase 374(H) 40 - 150 U/L 12/18/2024 8:34 PM COLLABORATING SUPERVISING PHYSICIAN LABORATORY AST 27 0 - 45 U/L 12/18/2024 8:34 PM COLLABORATING SUPERVISING PHYSICIAN LABORATORY ALT 40 0 - 50 U/L 12/18/2024 8:34 PM COLLABORATING SUPERVISING PHYSICIAN LABORATORY Protein Total 7.2 6.4 - 8.3 g/dL 12/18/2024 8:34 PM COLLABORATING SUPERVISING PHYSICIAN LABORATORY Albumin 3.1(L) 3.5 - 5.2 g/dL 12/18/2024 8:34 PM COLLABORATING SUPERVISING PHYSICIAN LABORATORY Bilirubin Total 0.3 <=1.2 mg/dL 12/18/2024 8:34 PM COLLABORATING SUPERVISING PHYSICIAN LABORATORY Blood STRUCTURE OF RIGHT UPPER LIMB / Unknown Venipuncture / Unknown 12/18/2024 7:59 PM COLLABORATING SUPERVISING PHYSICIAN 12/18/2024 8:07 PM COLLABORATING SUPERVISING PHYSICIAN Shaheen Aggarwal MD LAB - BLOOD ORDERABLES Final Result LABORATORY [facility] [address] [facility] Lab (1st floor, no room number) [place] [address], [facility] documented in this encounter Visit [...] exceed 4 gram $Given 12/18/2024 8:23 PM COLLABORATING SUPERVISING PHYSICIAN 1,000 mg documented in this encounter Active and Recently Administered Medications Times are shown in COLLABORATING SUPERVISING PHYSICIAN. Scheduled Medication Order 12/17/2024 12/18/2024 12/19/2024 acetaminophen (TYLENOL) tablet 1,000 mg (COMPLETED) 1,000 mg, Oral, ONCE, On 12/18/24 at 2024, For 1 dose, Maximum acetaminophen dose from all sources = 75 mg/kg/day not to exceed 4 gram 2022 ($Given - Provider: Katt Ngo RN) documented in this encounter Care Teams Visual Basic Programmer Relationship Specialty Start Date End Date Clinic, [address] [address] PCP - General 04/15/23 documented as of this encounter
--- OUTSIDE RECORDS SUMMARY | 2024-12-20 23:00 | XMS_ITS | Encounter Summary ---
Author Organization [place] Address [address] [place] [address]. [place] [address] Care Team Providers Care Icing Maker Name Role Phone Hao Rankin Primary Care Provider [facility], Julianna Bui Primary Care Pr [...] on file Legal Sex Female 3:27 AM SYSTEMS SECURITY ANALYST Gender Identity Not on file Sexual Orientation Not on file COVID-19 Exposure Response Date Recorded In the last month, have you been in contact with someone who was confirmed or suspected to have Coronavirus / COVID-19? No / Unsure 11/22/2021 3:52 PM SYSTEMS SECURITY ANALYST documented as of this encounter Plan of Treatment Not on file documented as of this encounter Visit Diagnoses Not on filedocumented in this encounter Care Teams Icing Maker Relationship Specialty Start Date End Date Hao Rankin PCP - General Family Practice 06/27/[address] [place], [place] [address]Jul[place]na [address] [place] [address] PCP - General 04/15/23 documented as of this encounter
--- OUTSIDE RECORDS SUMMARY | 2024-12-20 23:00 | XMS_ITS | Encounter Summary ---
Author Organization [facility] Address [address] [address] Care Team Providers Care Manager Competitive Intelligence Name Role Phone Javed Fishman MD Primary Care Provider +1- [phone] Reason for Visit * Procedure/Equipment (Routine) - Incomplete Specialty Diagnoses / Procedures Referred By Contac t Referred To Contact Diagnoses Rectal bleeding Procedures CT Abd Pelvis W IV Cont Mj Min MD [address] [place] [address] Referral ID Status Reason Start Date Expiration Date V isits Requested Visits Authorized [id number] Incomplete 12/14/2024 03/15/2026 1 1 Encounter Details Date Type Department Care Team (Late st Contact Info) Description 12/14/2024 7:40 PM SPECIAL ASSEMBLIES SUPERVISOR Ancillary Procedure [facility] [address] [address] Scan [address] [place] [address] Mj Min MD [address] [place] [address] Rectal bleeding Social History Tobacco Use Types [...] W IV CONT STAT 12/14/2024 7:08 PM SPECIAL ASSEMBLIES SUPERVISOR Rectal bleeding documented in this encounter Results * CT Abd Pelvis W IV Cont (12/14/2024 7:08 PM SPECIAL ASSEMBLIES SUPERVISOR) Anatomical Region Laterality Modality Abdomen, Pelvis Computed Tomogra phy 12/14/2024 7:07 PM SPECIAL ASSEMBLIES SUPERVISOR Impressions 12/15/2024 8:07 AM SPECIAL ASSEMBLIES SUPERVISOR 1. Bilateral necrotic inguinal adenopathy, right greater than left. Findings are suspicious for metastatic disease. 2. Possible polypoid enhancing lesion of the anterior rectum. Recommend correlation with physical exam/sigmoidoscopy. Perirectal nodularity is concerning for lymphadenopathy. 3. Solitary right kidney noted. Narrative 12/15/2024 8:07 AM SPECIAL ASSEMBLIES SUPERVISOR COMPARISON: None TECHNIQUE: Images were obtained through [...] For 1 dose Given 12/14/2024 7:08 PM SPECIAL ASSEMBLIES SUPERVISOR 75 mL sodium chloride 0.9% injection 10 mL 10 mL, Intravenous, ONCE, On Fri12/14/24 at 1915, For 1 dose Given 12/14/2024 7:08 PM SPECIAL ASSEMBLIES SUPERVISOR 10 mL documented in this encounter Care Teams Manager Competitive Intelligence Relationship Specialty [place] [address] [place] [address] PCP - General Family Practice 05/02/23 documented as of this encounter
--- OUTSIDE RECORDS SUMMARY | 2024-12-20 23:00 | XMS_ITS | Encounter Summary ---
Author Organization [facility] Address [address], [place] [address] Care Team Providers Care Dowel Setting Machine Operator Name Role Phone Javed Fishman MD Primary Care Provider +1- [phone] Encounter Details Date Type Department Care Team (Late st Contact Info) Description 12/15/2024 E-Visit Endoscopy at [facility] at [address] [place] [address] Mychart, [place] [address] Social History Tobacco Use Types Packs/Day Years [...] on filedocumented in this encounter Care Teams Dowel Setting Machine Operator Relationship Specialty [place] [address] [place] [address] PCP - General Family Practice 05/02/23 documented as of this encounter
--- OUTSIDE RECORDS SUMMARY | 2024-12-20 23:00 | XMS_ITS | Encounter Summary ---
Author Organization [facility], [facility] Address [address], [place] [address] Care Team Providers Care Medical Technologist Chemistry Name Role Phone Javed Fishman MD Primary Care Provider +1- [phone] Reason for Referral * Consult/Transfer Care (Routine) - New Request Specialty Diagnoses / Procedures Referred By Contac t Referred To Contact Diagnoses Rectal cancer (HRC) Sami Shane MD [address] [place] [address] Referral ID Status Reason Start Date Expiration Date V isits Requested Visits Authorized [id number] New Request 12/16/2024 03/17/2026 1 1 Scheduling Instructions Your clinician has recommended an appointment with [facility]. You can quickly make your appointment online at [email or web address]. You can also call [phone] for help scheduling your appointment. We suggest you call your health insurance company about your coverage and benefits for this appointment. Question Answer Appointment Urgency? Non-Urgent Reason for visit? 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 [address] Librado Ferrer MD [address] [place] [phone] Dx: Rectal cancer (HRC) (Primary Dx) Social [...] due to new diagnosis of rectal cancer. ERCIAL HOUSEKEEPER documented in this encounter Plan of Treatment [...] rectum documented in this encounter Care Teams Medical Technologist Chemistry Relationship Specialty [place] [address] [place] [address] PCP - General Family Practice 05/02/23 documented as of this encounter
--- OUTSIDE RECORDS SUMMARY | 2024-12-20 23:00 | XMS_ITS | Encounter Summary ---
Author Organization [facility] Address [address], [place] [address] Care Team Providers Care Stone Sawyer Name Role Phone Javed Fishman MD Primary Care Provider +1- [phone] Encounter Details Date Type Department Care Team (Late st Contact Info) Description 12/15/2024 Notes/Orders Specialty Center 3931 General Surgery [address] [facility] [address] [place], [place] [address] Mj Min MD [address] [place] [address] Rectal bleeding (Primary Dx) Social History Tobacco [...] 1/2 Ag/Ab 4th Generation (12/15/2024 3:38 PM WIENER PACKER) HIV 1/2 Antigen/Antib michele (4th generation) Negative (Non Reactive) Negative (Non Reactive) 12/15/2024 8:50 PM WIENER PACKER [facility] Comment:HIV-1 p24 Antigen an d HIV-1/HIV-2 Antibody not detected Blood Venipuncture / Unknown 12/15/2024 3:38 PM WIENER PACKER 12/15/2024 4:10 PM WIENER PACKER Mj Min MD LAB_1 [facility] [address] documented in this encounter Visit Diagnoses Diagnosis Rectal bleeding- Primary Hemorrhage of rectum and anus documented in this encounter Care Teams Stone Sawyer Relationship Specialty [place] [address] [place] [phone] PCP - General Family Practice 05/02/23 documented as of this encounter
--- OUTSIDE RECORDS SUMMARY | 2024-12-20 23:00 | XMS_ITS | Clinical Summary ---
Author Organization [facility] Address [address] [facility] [place] [address] Care Team Providers Care Box Lining Machine Operator Name Role Phone [facility], [facility] ovider Allergies No known [...] Department Care Team Description 12/18/2024 7:31 PM AIR DRIER - 12/19/2024 3:18 AM AIR DRIER Hospital Encounter [facility] Emergency Dept [address] [place] [phone] Shaheen Aggarwal MD Taylor, Jeremy James, MD [...] on file Legal Sex Female 3:27 AM AIR DRIER Gender Identity Not on file Sexual Orientation Not on file Last Filed Vital Signs Vital Sign Reading Time Taken Comments Blood Pressure 104/62 12/19/2024 1:58 AM AIR DRIER Pulse 97 12/19/2024 1:58 AM AIR DRIER Temperature 36.7 C (98.1 F) 12/19/2024 1:58 AM AIR DRIER Respiratory Rate 20 12/19/2024 1:58 AM AIR DRIER Oxygen Saturation 98% 12/19/2024 1:04 AM AIR DRIER Inhaled Oxygen Concentration - - Weight 56.5 kg (124 lb 9 oz) 12/18/2024 7:27 PM AIR DRIER Height 162.6 cm (5' 4) 12/18/2024 9:01 PM AIR DRIER Body Mass Index 21.38 12/18/2024 7:27 PM AIR DRIER Plan of Treatment Health Maintenance Due Date [...] PLATELETS & DIFFERENTIAL STAT 12/19/2024 2:42 AM AIR DRIER BLOOD CULTURE STAT 12/19/2024 2:42 AM AIR DRIER RBC AND PLATELET MORPHOLOGY STAT 12/19/2024 2:42 AM AIR DRIER CBC WITH PLATELETS AND DIFFERENTIAL STAT 12/19/2024 2:42 AM AIR DRIER ROUTINE UA WITH MICROSCOPIC REFLEX TO CULTURE STAT 12/19/2024 1:11 AM AIR DRIER TRANSFUSE RED BLOOD CELLS (UNIT) STAT 12/18/2024 11:46 PM AIR DRIER PREPARE RED BLOOD CELLS (UNIT) STAT 12/18/2024 10:32 PM AIR DRIER ABO/RH TYPE AND SCREEN STAT 7:59 PM AIR DRIER CBC WITH PLATELETS & DIFFERENTIAL STAT 12/18/2024 7:59 PM AIR DRIER TYPE AND SCREEN, ADULT STAT 7:59 PM AIR DRIER PROCALCITONIN STAT 12/18/2024 7:59 PM AIR DRIER CBC WITH PLATELETS AND DIFFERENTIAL STAT 12/18/2024 7:59 PM AIR DRIER INR STAT 12/18/2024 7:59 PM AIR DRIER COMPREHENSIVE METABOLIC PANEL STAT 12/18/2024 7:59 PM AIR DRIER HIV ANTIGEN ANTIBODY COMBO Routine 03/25/2016 from Last 3 Months or Most Recently Relevant to Health Maintenance Results * RBC and Platelet Morphology (12/19/2024 2:42 AM AIR DRIER) Pathologist [facility] RBC Morphology Confirmed RBC Indices 12/19/2024 3:45 AM AIR DRIER [facility] Platelet Assessment Automated Count Confirmed. Platelet morphology is normal. Automated Count Confirmed. Platelet morphology is normal. EILEEN 12/19/2024 3:45 AM AIR DRIER [facility] Blood STRUCTURE OF RIGHT UPPER LIMB / Unknown Venipuncture / Unknown 12/19/2024 2:42 AM AIR DRIER 12/19/2024 2:47 AM AIR DRIER us Darius Arriaga MD LAB - BLOOD ORDERABLES Fi nal Result RH LABORATORY [facility] Lab [address] [facility] Lab (1st floor, no room number) [place] [address], [facility] * (ABNORMAL) CBC with platelets and differential (12/19/2024 2:42 AM AIR DRIER) Only the most recent of2 resultswithin the time period is included. WBC Count 23.4(H) 4.0 - 11.0 10e3/uL 12/19/2024 3:45 AM AIR DRIER [facility] RBC Count 2.94(L) 3.80 - 5.20 10e6/uL 12/19/2024 3:45 AM AIR DRIER [facility] Hemoglobin 7.7(L) 11.7 - 15.7 g/dL 12/19/2024 3:45 AM AIR DRIER [facility] Hematocrit 24.5(L) 35.0 - 47.0 % 12/19/2024 3:45 AM AIR DRIER [facility] MCV 83 78 - 100 fL 12/19/2024 3:45 AM AIR DRIER [facility] MCH 26.2(L) 26.5 - 33.0 pg 12/19/2024 3:45 AM AIR DRIER [facility] MCHC 31.4(L) 31.5 - 36.5 g/dL 12/19/2024 3:45 AM AIR DRIER [facility] RDW 14.7 10.0 - 15.0 % 12/19/2024 3:45 AM AIR DRIER [facility] Platelet Count 896(H) 150 - 450 10e3/uL 12/19/2024 3:45 AM AIR DRIER [facility] % Neutrophils 70 % 12/19/2024 3:45 AM AIR DRIER [facility] % Lymphocytes 15 % 12/19/2024 3:45 AM AIR DRIER [facility] % Monocytes 8 % 12/19/2024 3:45 AM AIR DRIER [facility] % Eosinophils 6 % 12/19/2024 3:45 AM AIR DRIER [facility] % Basophils 1 % 12/19/2024 3:45 AM AIR DRIER [facility] % Immature Granulocytes 1 % 12/19/2024 3:45 AM AIR DRIER [facility] NRBCs per 100 WBC 0 <1 /100 025 3:45 AM AIR DRIER [facility] Absolute Neutrophils 16.4(H) 1.6 - 8.3 10e3/uL 12/19/2024 3:45 AM AIR DRIER [facility] Absolute Lymphocytes 3.5 0.8 - 5.3 10e3/uL 12/19/2024 3:45 AM AIR DRIER [facility] Absolute Monocytes 1.8(H) 0.0 - 1.3 10e3/uL 12/19/2024 3:45 AM AIR DRIER [facility] Absolute Eosinophils 1.4(H) 0.0 - 0.7 10e3/uL 12/19/2024 3:45 AM AIR DRIER [facility] Absolute Basophils 0.1 0.0 - 0.2 10e3/uL 12/19/2024 3:45 AM AIR DRIER [facility] Absolute Immature Granulocytes 0.2 <=0.4 10e3/uL 12/19/2024 3:45 AM AIR DRIER LABORATORY Absolute NRBCs 0.0 10e3/uL 12/19/2024 3:45 AM AIR DRIER LABORATORY Blood STRUCTURE OF RIGHT UPPER LIMB / Unknown Venipuncture / Unknown 12/19/2024 2:42 AM AIR DRIER 12/19/2024 2:47 AM AIR DRIER Darius Arriaga MD LAB - BLOOD ORDERABLES Fi nal Result LABORATORY [facility] [address] Lab (1st floor, no room number) [place] [address] * Transfuse red blood cells (unit) (12/19/2024 2:00 AM AIR DRIER) us Shaheen Aggarwal MD BLOOD TRANSFUSION ORDERABLES Final Result * (ABNORMAL) UA with Microscopic reflex to Culture (12/19/2024 1:11 AM AIR DRIER) Color Urine Straw Colorless, Straw, Light Yellow, Yellow 12/19/2024 1:42 AM [facility] Appearance Urine Clear Clear 12/19/19 1:42 AM [facility] Glucose Urine Negative Negative mg/dL 12/19/2024 1:42 AM [facility] Bilirubin Urine Negative Negative 1:42 AM AIR DRIER LABORATORY Ketones Urine Negative Negative mg/dL 12/19/2024 1:42 AM [facility] Specific Higgins Urine 1.003 1.003 - 1.035 12/19/2024 1:42 AM AIR DRIER LABORATORY Blood Urine Negative Negative 12/19/2024 1:42 AM [facility] pH Urine 6.0 5.0 - 7.0 12/19/2024 1:42 AM [facility] Protein Albumin Urine Negative Negative mg/dL 12/19/2024 1:42 AM [facility] Urobilinogen Urine Normal Normal, 2.0 mg/dL 12/19/2024 1:42 AM AIR DRIER LABORATORY Nitrite Urine Negative Negative 12/19/2024 1:42 AM [facility] Leukocyte Esterase Urine Negative Negative 12/19/2024 1:42 AM AIR DRIER [facility] RBC Urine 0 <=2 /HPF 12/19/2024 1:42 AM AIR DRIER [facility] WBC Urine <1 <=5 /HPF 12/19/2024 1:42 AM AIR DRIER [facility] Squamous Epithelials Urine 2(H) <=1 /HPF 12/19/2024 1:42 AM AIR DRIER [facility] Urine URINE SPECIMEN OBTAINED BY CLEAN CATCH PROCEDURE / Unknown Non-blood Collection / Unknown 12/19/2024 1:11 AM AIR DRIER 12/19/2024 1:15 AM AIR DRIER Narrative [facility] - 12/19/2024 1:42 AM AIR DRIER Urine Culture not indicated us Darius Arriaga MD LAB - URINE ORDERABLES Fi nal Result LABORATORY [facility] [address] Lab (1st floor, no room number) [place] [address] * Prepare red blood cells (unit) (12/18/2024 10:32 PM AIR DRIER) Blood Component Type Red Blood Cells RH BLOOD BANK Product Code [id number] RH BLOO D BANK Unit Status Transfused RH BLOO D BANK Unit Number [id number] RH B LOOD BANK CROSSMATCH Compatible RH BLOOD BANK CODING SYSTEM [id number] RH BLO OD BANK ISSUE DATE AND TIME [id number] RH BLOOD BANK UNIT ABO/RH O+ RH BLOOD BANK UNIT TYPE ISBT 5100 RH BL OOD BANK 12/18/2024 10:3 2 PM AIR DRIER us Shaheen Aggarwal MD BLOOD BANK PRODUCT ORDERABLE S Final Result RH BLOOD BANK [address] [place] [address] * Adult Type and Screen (12/18/2024 7:59 PM AIR DRIER) ABO/RH(D) O POS 12/18/2024 7:36 PM AIR DRIER RH BLOOD BANK Antibody Screen Negative Negative 12/18/2024 7:36 PM AIR DRIER RH BLOOD BANK SPECIMEN EXPIRATION DATE [id number] 12/18/2024 7:36 PM AIR DRIER BLOOD BANK Blood STRUCTURE OF RIGHT UPPER LIMB / Unknown Venipuncture / Unknown 12/18/2024 7:59 PM AIR DRIER 12/18/2024 8:07 PM AIR DRIER Shaheen Aggarwal MD LAB - BLOOD BANK TEST ORDER Final Result BLOOD [place] [address] * Procalcitonin (12/18/2024 7:59 PM AIR DRIER) Procalcitonin 0.09 <0.50 ng/mL 12/19/2024 1:49 AM AIR DRIER LABORATORY Comment: Interpretation and Recommendations <0.5 ng/mL: Systemic bacterial infection unlikely. Local bacterial infection is possible. 0.5-1.99 ng/mL: Systemic bacterial infection possible, but various other conditions are known to induce PCT as well. >=2.00 ng/mL: Systemic bacterial infection likely, unless other causes are known. Decision to start antibiotics should not be based on procalcitonin level alone. See Procalcitonin Guidance document for more details. [email or web address] Factors that may affect PCT levels (not [...] Unknown Venipuncture / Unknown 12/18/2024 7:59 PM AIR DRIER 12/18/2024 8:07 PM AIR DRIER Darius Arriaga MD LAB - BLOOD ORDERABLES Fi nal Result [facility] Lab [address] Lab (1st floor, no room number) [place] [id number] [place] [address] * (ABNORMAL) INR (12/18/2024 7:59 PM AIR DRIER) INR 1.39(H) 0.85 - 1.15 12/18/2024 8:51 PM AIR DRIER LABORATORY Blood STRUCTURE OF RIGHT UPPER LIMB / Unknown Venipuncture / Unknown 12/18/2024 7:59 PM AIR DRIER 12/18/2024 8:07 PM AIR DRIER Shaheen Aggarwal MD LAB - BLOOD ORDERABLES Final Result Performing Organization Address City/[facility]/ZIP Co de Phone Number [facility] Lab [address] Lab (1st floor, no room number) [place] [phone] * (ABNORMAL) Comprehensive metabolic panel (12/18/2024 7:59 PM AIR DRIER) Sodium 136 135 - 145 mmol/L 12/18/2024 8:34 PM [facility] Potassium 3.9 3.4 - 5.3 mmol/L 12/18/2024 8:34 PM [facility] Carbon Dioxide (CO2) 24 22 - 29 mmol/L 12/18/2024 8:34 PM [facility] Anion Gap 13 7 - 15 mmol/L 12/18/2024 8:34 PM AIR DRIER LABORATORY Urea Nitrogen 6.6 6.0 - 20.0 mg/dL 12/18/2024 8:34 PM [facility] Creatinine 0.55 0.51 - 0.95 mg/dL 12/18/2024 8:34 PM [facility] GFR Estimate >90 >60 mL/min/1.7 3m2 12/18/2024 8:34 PM [facility] Comment:eGFR calculated usin 2020 CKD-EPI equation. Calcium 8.6(L) 8.8 - 10.4 mg/dL 12/18/2024 8:34 PM AIR DRIER LABORATORY Chloride 99 98 - 107 mmol/L 12/18/2024 8:34 PM AIR DRIER LABORATORY Glucose 110(H) 70 - 99 mg/dL 12/18/2024 8:34 PM AIR DRIER LABORATORY Alkaline Phosphatase 374(H) 40 - 150 U/L 12/18/2024 8:34 PM AIR DRIER LABORATORY AST 27 0 - 45 U/L 12/18/2024 8:34 PM AIR DRIER LABORATORY ALT 40 0 - 50 U/L 12/18/2024 8:34 PM AIR DRIER LABORATORY Protein Total 7.2 6.4 - 8.3 g/dL 12/18/2024 8:34 PM AIR DRIER LABORATORY Albumin 3.1(L) 3.5 - 5.2 g/dL 12/18/2024 8:34 PM AIR DRIER LABORATORY Bilirubin Total 0.3 <=1.2 mg/dL 12/18/2024 8:34 PM AIR DRIER LABORATORY Blood STRUCTURE OF RIGHT UPPER LIMB / Unknown Venipuncture / Unknown 12/18/2024 7:59 PM AIR DRIER 12/18/2024 8:07 PM AIR DRIER Shaheen Aggarwal MD LAB - BLOOD ORDERABLES Final Result LABORATORY [facility] [address] [facility] Lab (1st floor, no room number) [place] [address], [facility] * HIV Antigen Antibody Combo (03/25/2016) HIV Antigen Antibody Combo Nonreactive Blood specimen (specimen) Patient Reported LAB - BLOOD ORDERABLES Final Re sult from Last 3 Months or Most Recently Relevant to Health Maintenance Insurance [employer] [facility] * Guarantor: Tamia Maharaj Account Type Relation to Patient Date of Phone Billing Address Employer Related Employer 1987 ATTN [employer]OUNT[employer] PAYABLE [address] , [address] [place] [address] Care Teams Box Lining Machine Operator Relationship Specialty Start Date End Date [facility] [address] [place] [address] PCP - General 04/15/23
--- OUTSIDE RECORDS SUMMARY | 2024-12-20 23:00 | XMS_ITS | Encounter Summary ---
[facility] Organization [facility] Address [address] [place] [address] Care Team Providers Care Eye Specialist Name Role Phone Javed Fishman MD Primary Care Provider +1- [phone] Encounter Details Date Type Department Care Team (Late st Contact Info) Description 12/15/2024 3:45 PM CRISIS THERAPIST Lab Visit [facility] [address] [place] [address] Rectal bleeding; Lymphadenopathy Social History [...] COMPREHENSIVE METABOLIC PANEL Routine 12/15/2024 3:54 PM CRISIS THERAPIST Lymphadenopathy CANCER ANTIGEN-GI (CA 19-9) Routine 12/15/2024 3:38 PM CRISIS THERAPIST Rectal bleeding HIV 1/2 AG/AB 4TH GEN Routine 12/15/2024 3:38 PM CRISIS THERAPIST Rectal bleeding CA-125 (CARBOHYDRATE AG 125) STAT 12/15/2024 3:38 PM CRISIS THERAPIST Rectal bleeding CARCINOEMBRYONIC ANTIGEN (CEA) Routine 12/15/2024 3:38 PM CRISIS THERAPIST Rectal bleeding documented in this encounter Results * (ABNORMAL) Comp Metabolic Panel (12/15/2024 3:54 PM CRISIS THERAPIST) Sodium 139 136 - 145 mmol/L 12/15/2024 4:49 PM [facility] Potassium 3.6 3.5 - 5.1 mmol/L 12/15/2024 4:49 PM [facility] Chloride 105 98 - 109 mmol/L 12/15/2024 4:49 PM [facility] CO2 26 20 - 29 mmol/L 12/15/2024 4:49 PM [facility] Anion Gap 8 6 - 16 mmol/L 12/15/2024 4:49 PM [facility] Calcium 8.4 8.4 - 10.4 mg/dL 12/15/2024 4:49 PM [facility] BUN 9 7 - 26 mg/dL 12/15/2024 4:49 PM [facility] Creatinine 0.56 0.55 - 1.02 mg/dL 12/15/2024 4:49 PM [facility] Alkaline Phosphatase 292(H) 40 - 150 U/L 12/15/2024 4:49 PM [facility] AST (SGOT) 53(H) 10 - 40 U/L 12/15/2024 4:49 PM [facility] ALT (SGPT) 46 0 - 55 U/L 12/15/2024 4:49 PM [facility] Bilirubin, Total 0.3 0.2 - 1.2 mg/dL 12/15/2024 4:49 PM [facility] Protein, Total 6.9 6.4 - 8.3 g/dL 12/15/2024 4:49 PM [facility] Albumin 2.1(L) 3.5 - 5.0 g/dL 12/15/2024 4:49 PM [facility] Glucose 103(H) 70 - 100 mg/dL 12/15/2024 4:49 PM [facility] Comment:The given reference range is for the fasting state. Non-fasting reference range for glucose is 70 - 180 mg/dL. GFR, Estimated >60 >60 mL/min/1.7 3m2 12/15/2024 4:49 PM [facility] Hours Fasting 0.1 8 - 12 Hours 12/15/2024 4:49 PM [facility] Comment:Lab unable to obtain patient's fasting status at time of specimen collection. Blood Venipuncture / Unknown 12/15/2024 3:54 PM CRISIS THERAPIST 12/15/2024 3:54 PM CRISIS THERAPIST Mj Min MD LAB_1 Performing Organization Address City/State/[facility] Co de Phone Number [facility] [address] [place] [address] * HIV 1/2 Ag/Ab 4th Generation (12/15/2024 3:38 PM CRISIS THERAPIST) HIV 1/2 Antigen/Antib michele (4th generation) Negative (Non Reactive) Negative (Non Reactive) 12/15/2024 8:50 PM CRISIS THERAPIST [facility] Comment:HIV-1 p24 Antigen an d HIV-1/HIV-2 Antibody not detected Blood Venipuncture / Unknown 12/15/2024 3:38 PM CRISIS THERAPIST 12/15/2024 4:10 PM CRISIS THERAPIST Mj Min MD LAB_1 Performing Organization Address [facility] de Phone Number [facility] [address] * Carcinoembryonic Antigen (CEA Blood) (12/15/2024 3:38 PM CRISIS THERAPIST) Carcinoembryonic Antigen 2.3 0.0 - 5.0 ng/mL 12/15/2024 9:30 PM CRISIS THERAPIST [facility] Blood Venipuncture / Unknown 12/15/2024 3:38 PM CRISIS THERAPIST 12/15/2024 4:10 PM CRISIS THERAPIST [facility]ORATORY - 12/15/2024 9:30 PM CRISIS THERAPIST The [employer] CEA Chemiluminescent immunoassay is used. Results obtained with different test methods or kits cannot be used interchangeably. Mj Min MD LAB_1 Performing Organization Address [facility] Phone Number [facility] [address] * Cancer Antigen-GI (CA19-9) (12/15/2024 3:38 PM CRISIS THERAPIST) Carbohydrate Ag 19-9 22 0 - 35 U/mL 12/16/2024 10:28 AM [facility]ISIS THERAPIST [facility] Blood Venipuncture / Unknown 12/15/2024 3:38 PM CRISIS THERAPIST 12/15/2024 4:10 PM CRISIS THERAPIST [facility] LAB - 12/16/2024 10:28 AM CRISIS THERAPIST This assay has been shown to have interference from high levels of biotin. Specimens from patients who are undergoing biotin therapy and/or ingesting biotin supplements may contain high levels of biotin which may cause falsely low results. Interpret the results in light of the total clinical presentation of the patient. The Luis [employer] CA199 Chemiluminescent immunoassay is used. Results obtained with different methods or kits cannot be used interchangeably Mj Min MD LAB_1 Performing Organization Address [facility] Co de Phone Number [facility] [address] * CA 125 (Carbohydrate Antigen 125) (12/15/2024 3:38 PM CRISIS THERAPIST) Cancer Antigen 125 24 0 - 35 U/mL 12/15/2024 9:31 PM CRISIS THERAPIST [facility] Blood Venipuncture / Unknown 12/15/2024 3:38 PM CRISIS THERAPIST 12/15/2024 4:10 PM CRISIS THERAPIST Narrative [facility] - 12/15/2024 9:31 PM CRISIS THERAPIST The [employer] CA125 Chemiluminescent assay is used. Results obtained with different test methods or kits cannot be used interchangeably. Mj Min MD LAB_1 [facility] [address] [place], [place] [address] documented in this encounter Visit Diagnoses Diagnosis Rectal bleeding Hemorrhage of rectum and anus Lymphadenopathy Enlargement of lymph nodes documented in this encounter Care Teams Eye Specialist Relationship Specialty [place] [address] [place] [address] PCP - General Family Practice 05/02/23 documented as of this encounter
--- OUTSIDE RECORDS SUMMARY | 2024-12-20 23:00 | XMS_ITS | Encounter Summary ---
Author Organization [facility] Address [address] [place] [address]. 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
--- OUTSIDE RECORDS SUMMARY | 2024-12-20 23:00 | XMS_ITS | Encounter Summary ---
Author Organization [facility] Address [address] [address] Care Team Providers Care Pin Attacher Name Role Phone Javed Fishman MD Primary Care Provider +1- [phone] Reason for Referral * Procedure/Equipment (Routine) - New Request Specialty Diagnoses / Procedures Referred By Contac t Referred To Contact Diagnoses Rectal mass Hematochezia Procedures Colonoscopy Diagnostic Librado Ferrer MD [address] [place] [address] Referral ID Status Reason Start Date Expiration Date V isits Requested Visits Authorized [id number] New Request 02/12/2025 12/15/2026 1 1 REPAIR INSPECTOR Reason for Visit * Reason Comments RESULTS, TEST CT scan, discussion regarding procedure for tomorrow Encounter Details Date Type Department Care Team (Late st Contact Info) Description 12/15/20[address] [facility] [address] [facility] [address] [facility] [place] [address] Librado Ferrer MD [address] [place] [phone] RESULTS, TEST (CT scan, discussion regarding procedure [...] - 12/15/2024 4:24 PM CST Brief GI Feed Research Aide Note: 12/15/2024 Chart extensively reviewed, discussed case [...] available. Librado Ferrer MD Department of Gastroenterology [facility] REPAIR INSPECTOR documented in this encounter Plan of Treatment Not on file documented as of this encounter Results * Colonoscopy Diagnostic (12/16/2024 10:21 AM COAT REPAIR INSPECTOR) Anatomical Region Laterality Modality Other 12/16/2024 10:2 1 AM COAT REPAIR INSPECTOR Narrative 12/16/2024 10:21 AM COAT REPAIR INSPECTOR Patient Name: Na Lei Procedure Date: 12/16/2024 [...] and oxygen saturations were monitored continuously. The [id number] was introduced through the anus and advanced [...] from the initial medication administration until the poultry farm manager assists with initial maneuvers (biopsy / polypectomy [...] kind referral. Procedure Code(s): --- Professional --- 04777, Colonoscopy, flexible; with biopsy, single or multiple G0500, Moderate sedation services provided by the same physician or other qualified health residential child care counselor performing a gastrointestinal endoscopic service that sedation supports, requiring the presence of an independent trained observer to assist in the monitoring of the patient's level of consciousness and physiological status; initial 15 minutes of intra-service time; patient age 5 years or older (additional time may be reported with 30125, as appropriate) [address], Moderate sedation; each additional 15 minutes intraservice time Diagnosis Code(s): --- Professional --- K62.89, Other specified diseases of anus and rectum D49.0, Neoplasm of unspecified behavior of digestive system K56.690, Other partial intestinal obstruction R93.3, Abnormal findings on diagnostic imaging of other parts of digestive tract CPT copyright 2022 [employer] [employer]. All rights reserved. The codes documented in this report are preliminary and upon compressed gas equipment mechanic review may be revised to meet current [...] and oxygen saturations were monitored continuously. The [id number] was introduced through the anus and advanced [...] from the initial medication administration until the poultry farm manager assists with initial maneuvers (biopsy / polypectomy [...] kind referral. Procedure Code(s): --- Professional --- 24929, Colonoscopy, flexible; with biopsy, single or multiple G0500, Moderate sedation services provided by the same physician or other qualified health residential child care counselor performing a gastrointestinal endoscopic service that sedation supports, requiring the presence of an independent trained observer to assist in the monitoring of the patient's level of consciousness and physiological status; initial 15 minutes of intra-service time; patient age 5 years or older (additional time may be reported with 26026, as appropriate) [address]8783, Moderate sedation; each additional 15 minutes intraservice time Diagnosis Code(s): --- Professional --- K62.89, Other specified diseases of anus and rectum D49.0, Neoplasm of unspecified behavior of digestive system K56.690, Other partial intestinal obstruction R93.3, Abnormal findings on diagnostic imaging of other parts of digestive tract CPT copyright 2022 [employer] [employer]. All rights reserved. The codes documented in this report are preliminary and upon compressed gas equipment mechanic review may be revised to meet current [...] stool documented in this encounter Care Teams Pin Attacher Relationship Specialty [place] [address] [place] [address] PCP - General Family Practice 05/02/23 documented as of this encounter
--- OUTSIDE RECORDS SUMMARY | 2024-12-20 23:00 | XMS_ITS | Encounter Summary ---
Author Organization [facility] Address [address], [place] [address] Care Team Providers Care Butadiene Compressor Operator Name Role Phone Javed Fishman MD Primary Care Provider +1- [phone] Reason for Visit * Procedure/Equipment (Routine) - Incomplete Specialty Diagnoses / Procedures Referred By Contac t Referred To Contact Diagnoses Pelvic pain in female Procedures US Pelvic Complete WO EV US Pelvic Complete W EV OBGYN Pelvic/Railroad Police Officer Ultrasound Kay Caceres, CONSUMER EDUCATOR, E COMMERCE MARKETING MANAGER [address] [place] [address] Referral ID Status Reason Start Date Expiration Date V isits Requested Visits Authorized [id number] Incomplete 12/14/2024 03/15/2026 1 1 Encounter Details Date Type Department Care Team (Latest Contact Info) Description 12/15/2024 3:00 PM MANAGER WIND Ancillary Procedure [facility] [address] [address] [address] [place] [phone] Kay Caceres, CONSUMER EDUCATOR, E COMMERCE MARKETING MANAGER [address] [place] [address] Pelvic pain in female Social History Tobacco [...] COMPLETE WO EV Routine 12/15/2024 3:38 PM MANAGER WIND Pelvic pain in female documented in this encounter Results * US Pelvic Complete WO EV (12/15/2024 3:38 PM MANAGER WIND) Anatomical Region Laterality Modality Pelvis Ultrasound 12/15/2024 3:00 PM MANAGER WIND Impressions 12/15/2024 3:51 PM MANAGER WIND Mass posterior to the vagina may correspond to what appears to be a mass in the anterior wall of the rectum on CT. Narrative 12/15/2024 3:51 PM MANAGER WIND COMPARISON: None TECHNIQUE: Transabdominal imaging was performed. [...] of the rectum on CT. Kay Caceres CONSUMER EDUCATOR, E COMMERCE MARKETING MANAGER RAD US documented in this encounter Visit Diagnoses Diagnosis Pelvic pain in female Unspecified symptom associated with female genital organs documented in this encounter Care Teams Butadiene Compressor Operator Relationship Specialty [place] [address] [place] [address] PCP - General Family Practice 05/02/23 documented as of this encounter
--- OUTSIDE RECORDS SUMMARY | 2024-12-20 23:00 | XMS_ITS | Encounter Summary ---
Author Organization [facility] Address [address] [place] [address] Care Team Providers Care Track Car Operator Name Role Phone Javed Fishman MD Primary Care Provider +1- [phone] Encounter Details Date Type Department Care Team (Late st Contact Info) Description 12/15/2024 Notes/Orders Obstetrics & Gynecology at [address] [address] Berenice Ramirez LPN Patient counseled [...] Primary documented in this encounter Care Teams Track Car Operator Relationship Specialty [place] [address] [place] [address] PCP - General Family Practice 05/02/23 documented as of this encounter
--- OUTSIDE RECORDS SUMMARY | 2024-12-20 23:00 | XMS_ITS | Encounter Summary ---
Author Organization [facility] Address [address] [place] [address]. [place] [address] Care Team Providers Care Inspector Finishing Name Role Phone Unavailable Primary Care Provider Unavailabl e Encounter Details Date Type Department Care Team (Late st Contact Info) Description 02/12/2010 8:08 PM CDT [facility] in [facility] [address] [place] [phone] Adeel Valente MD [address] [place], [place] [phone] Social History Tobacco Use Types Packs/Day Years Used Date Smoking Tobacco: Every Day Cigarettes 1 7 Smokeless Tobacco: Never Alcohol Use Standard Drinks/Week Comments No 10 (1 standard drink = 0.6 oz pu re alcohol) Comments No Sex and Gender Information Value Date Recorded Sex Assigned at Not on file Legal Sex Female 3:27 AM DISPENSARY CLERK Gender Identity Not on file Sexual Orientation Not on file documented as of this encounter Plan of Treatment Not on file documented as of this encounter Visit Diagnoses Not on filedocumented in this encounter
--- OUTSIDE RECORDS SUMMARY | 2024-12-20 23:00 | XMS_ITS | Referral Summary ---
Author Organization [facility] Address [address] [place] [address]. [place] [address] Care Team Providers Care Software Testing Specialist Name Role Phone [facility], [facility] ovider Encounters Date Type Department Care Team Description 12/18/2024 7:31 PM CDL INSTRUCTOR - 12/19/2024 3:18 AM CDL INSTRUCTOR Hospital Encounter [facility] Emergency Dept [address] [place] [address] Shaheen Aggarwal MD Taylor, Jeremy James, MD [...] on file Legal Sex Female 3:27 AM CDL INSTRUCTOR Gender Identity Not on file Sexual Orientation Not on file Last Filed Vital Signs Vital Sign Reading Time Taken Comments Blood Pressure 104/62 12/19/2024 1:58 AM CDL INSTRUCTOR Pulse 97 12/19/2024 1:58 AM CDL INSTRUCTOR Temperature 36.7 C (98.1 F) 12/19/2024 1:58 AM CDL INSTRUCTOR Respiratory Rate 20 12/19/2024 1:58 AM CDL INSTRUCTOR Oxygen Saturation 98% 12/19/2024 1:04 AM CDL INSTRUCTOR Inhaled Oxygen Concentration - - Weight 56.5 kg (124 lb 9 oz) 12/18/2024 7:27 PM CDL INSTRUCTOR Height 162.6 cm (5' 4) 12/18/2024 9:01 PM CDL INSTRUCTOR Body Mass Index 21.38 12/18/2024 7:27 PM CDL INSTRUCTOR Plan of Treatment Not on file Procedures Procedure Name Priority Date/Time Associated Diagnosis Comments CBC WITH PLATELETS & DIFFERENTIAL STAT 12/19/2024 2:42 AM CDL INSTRUCTOR BLOOD CULTURE STAT 12/19/2024 2:42 AM CDL INSTRUCTOR RBC AND PLATELET MORPHOLOGY STAT 12/19/2024 2:42 AM CDL INSTRUCTOR CBC WITH PLATELETS AND DIFFERENTIAL STAT 12/19/2024 2:42 AM CDL INSTRUCTOR ROUTINE UA WITH MICROSCOPIC REFLEX TO CULTURE STAT 12/19/2024 1:11 AM CDL INSTRUCTOR TRANSFUSE RED BLOOD CELLS (UNIT) STAT 12/18/2024 11:46 PM CDL INSTRUCTOR PREPARE RED BLOOD CELLS (UNIT) STAT 12/18/2024 10:32 PM CDL INSTRUCTOR ABO/RH TYPE AND SCREEN STAT 7:59 PM CDL INSTRUCTOR CBC WITH PLATELETS & DIFFERENTIAL STAT 12/18/2024 7:59 PM CDL INSTRUCTOR TYPE AND SCREEN, ADULT STAT 7:59 PM CDL INSTRUCTOR PROCALCITONIN STAT 12/18/2024 7:59 PM CDL INSTRUCTOR CBC WITH PLATELETS AND DIFFERENTIAL STAT 12/18/2024 7:59 PM CDL INSTRUCTOR INR STAT 12/18/2024 7:59 PM CDL INSTRUCTOR COMPREHENSIVE METABOLIC PANEL STAT 12/18/2024 7:59 PM CDL INSTRUCTOR HIV ANTIGEN ANTIBODY COMBO Routine 03/25/2016 from Last 3 Months or Most Recently Relevant to Health Maintenance Results * RBC and Platelet Morphology (12/19/2024 2:42 AM CDL INSTRUCTOR) RBC Morphology Confirmed RBC Indices 12/19/2024 3:45 AM CDL INSTRUCTOR [facility] Platelet Assessment Automated Count Confirmed. Platelet morphology is normal. Automated Count Confirmed. Platelet morphology is normal. EILEEN 12/19/2024 3:45 AM CDL INSTRUCTOR [facility] Blood STRUCTURE OF RIGHT UPPER LIMB / Unknown Venipuncture / Unknown 12/19/2024 2:42 AM CDL INSTRUCTOR 12/19/2024 2:47 AM CDL INSTRUCTOR us Darius Arriaga MD LAB - BLOOD ORDERABLES Fi nal Result [facility] [address] Lab (1st floor, no room number) [place] [address], [facility] * (ABNORMAL) CBC with platelets and differential (12/19/2024 2:42 AM CDL INSTRUCTOR) Only the most recent of2 resultswithin the time period is included. WBC Count 23.4(H) 4.0 - 11.0 10e3/uL 12/19/2024 3:45 AM CDL INSTRUCTOR [facility] RBC Count 2.94(L) 3.80 - 5.20 10e6/uL 12/19/2024 3:45 AM CDL INSTRUCTOR [facility] Hemoglobin 7.7(L) 11.7 - 15.7 g/dL 12/19/2024 3:45 AM CDL INSTRUCTOR [facility] Hematocrit 24.5(L) 35.0 - 47.0 % 12/19/2024 3:45 AM CDL INSTRUCTOR [facility] MCV 83 78 - 100 fL 12/19/2024 3:45 AM CDL INSTRUCTOR [facility] MCH 26.2(L) 26.5 - 33.0 pg 12/19/2024 3:45 AM CDL INSTRUCTOR [facility] MCHC 31.4(L) 31.5 - 36.5 g/dL 12/19/2024 3:45 AM CDL INSTRUCTOR [facility] RDW 14.7 10.0 - 15.0 % 12/19/2024 3:45 AM CDL INSTRUCTOR [facility] Platelet Count 896(H) 150 - 450 10e3/uL 12/19/2024 3:45 AM CDL INSTRUCTOR [facility] % Neutrophils 70 % 12/19/2024 3:45 AM CDL INSTRUCTOR [facility] % Lymphocytes 15 % 12/19/2024 3:45 AM CDL INSTRUCTOR [facility] % Monocytes 8 % 12/19/2024 3:45 AM CDL INSTRUCTOR [facility] % Eosinophils 6 % 12/19/2024 3:45 AM CDL INSTRUCTOR [facility] % Basophils 1 % 12/19/2024 3:45 AM CDL INSTRUCTOR [facility] % Immature Granulocytes 1 % 12/19/2024 3:45 AM CDL INSTRUCTOR [facility] NRBCs per 100 WBC 0 <1 /100 025 3:45 AM CDL INSTRUCTOR [facility] Absolute Neutrophils 16.4(H) 1.6 - 8.3 10e3/uL 12/19/2024 3:45 AM CDL INSTRUCTOR [facility] Absolute Lymphocytes 3.5 0.8 - 5.3 10e3/uL 12/19/2024 3:45 AM CDL INSTRUCTOR LABORATORY Absolute Monocytes 1.8(H) 0.0 - 1.3 10e3/uL 12/19/2024 3:45 AM CDL INSTRUCTOR LABORATORY Absolute Eosinophils 1.4(H) 0.0 - 0.7 10e3/uL 12/19/2024 3:45 AM CDL INSTRUCTOR LABORATORY Absolute Basophils 0.1 0.0 - 0.2 10e3/uL 12/19/2024 3:45 AM CDL INSTRUCTOR LABORATORY Absolute Immature Granulocytes 0.2 <=0.4 10e3/uL 12/19/2024 3:45 AM CDL INSTRUCTOR LABORATORY Absolute NRBCs 0.0 10e3/uL 12/19/2024 3:45 AM CDL INSTRUCTOR LABORATORY Blood STRUCTURE OF RIGHT UPPER LIMB / Unknown Venipuncture / Unknown 12/19/2024 2:42 AM CDL INSTRUCTOR 12/19/2024 2:47 AM CDL INSTRUCTOR Darius Arriaga MD LAB - BLOOD ORDERABLES Fi nal Result LABORATORY [facility] [address] [facility] Lab (1st floor, no room number) [place] [address] * Transfuse red blood cells (unit) (12/19/2024 2:00 AM CDL INSTRUCTOR) us Shaheen Aggarwal MD BLOOD TRANSFUSION ORDERABLES Final Result * (ABNORMAL) UA with Microscopic reflex to Culture (12/19/2024 1:11 AM CDL INSTRUCTOR) Color Urine Straw Colorless, Straw, Light Yellow, Yellow 12/19/2024 1:42 AM CDL INSTRUCTOR LABORATORY Appearance Urine Clear Clear 12/19/19 1:42 AM CDL INSTRUCTOR LABORATORY Glucose Urine Negative Negative mg/dL 12/19/2024 1:42 AM CDL INSTRUCTOR LABORATORY Bilirubin Urine Negative Negative 1:42 AM CDL INSTRUCTOR LABORATORY Ketones Urine Negative Negative mg/dL 12/19/2024 1:42 AM CDL INSTRUCTOR LABORATORY Specific [place] Urine 1.003 1.003 - 1.035 12/19/2024 1:42 AM CDL INSTRUCTOR LABORATORY Blood Urine Negative Negative 12/19/2024 1:42 AM CDL INSTRUCTOR [facility] pH Urine 6.0 5.0 - 7.0 12/19/2024 1:42 AM CDL INSTRUCTOR [facility] Protein Albumin Urine Negative Negative mg/dL 12/19/2024 1:42 AM CDL INSTRUCTOR [facility] Urobilinogen Urine Normal Normal, 2.0 mg/dL 12/19/2024 1:42 AM CDL INSTRUCTOR [facility] Nitrite Urine Negative Negative 12/19/2024 1:42 AM CDL INSTRUCTOR [facility] Leukocyte Esterase Urine Negative Negative 12/19/2024 1:42 AM CDL INSTRUCTOR [facility] RBC Urine 0 <=2 /HPF 12/19/2024 1:42 AM CDL INSTRUCTOR [facility] WBC Urine <1 <=5 /HPF 12/19/2024 1:42 AM CDL INSTRUCTOR [facility] Squamous Epithelials Urine 2(H) <=1 /HPF 12/19/2024 1:42 AM CDL INSTRUCTOR [facility] Urine URINE SPECIMEN OBTAINED BY CLEAN CATCH PROCEDURE / Unknown Non-blood Collection / Unknown 12/19/2024 1:11 AM CDL INSTRUCTOR 12/19/2024 1:15 AM CDL INSTRUCTOR Narrative [facility] - 12/19/2024 1:42 AM CDL INSTRUCTOR Urine Culture not indicated us Darius Arriaga MD LAB - URINE ORDERABLES Fi nal Result [facility] Lab [address] Lab (1st floor, no room number) [place] [address] * Prepare red blood cells (unit) (12/18/2024 10:32 PM CDL INSTRUCTOR) Blood Component Type Red Blood Cells RH BLOOD BANK Product Code [id number] RH BLOO D BANK Unit Status Transfused RH BLOO D BANK Unit Number [id number] RH B LOOD BANK CROSSMATCH Compatible RH BLOOD BANK CODING SYSTEM [id number] RH BLO OD BANK ISSUE DATE AND TIME [id number] RH BLOOD BANK UNIT ABO/RH O+ RH BLOOD BANK UNIT TYPE ISBT 5100 RH BL OOD BANK 12/18/2024 10:3 2 PM CDL INSTRUCTOR us Shaheen Aggarwal MD BLOOD BANK PRODUCT ORDERABLE S Final Result Performing Organization Address City/[facility]/ZIP Co de Phone Number BLOOD BANK [address] [place] [address], [facility] * Adult Type and Screen (12/18/2024 7:59 PM CDL INSTRUCTOR) ABO/RH(D) O POS 12/18/2024 7:36 PM CDL INSTRUCTOR RH BLOOD BANK Antibody Screen Negative Negative 12/18/2024 7:36 PM CDL INSTRUCTOR RH BLOOD BANK SPECIMEN EXPIRATION DATE [id number] 12/18/2024 7:36 PM CDL INSTRUCTOR BLOOD BANK Blood STRUCTURE OF RIGHT UPPER LIMB / Unknown Venipuncture / Unknown 12/18/2024 7:59 PM CDL INSTRUCTOR 12/18/2024 8:07 PM CDL INSTRUCTOR Shaheen Aggarwal MD LAB - BLOOD BANK TEST ORDER Final Result Performing Organization Address [facility] Co de Phone Number BLOOD BANK [address] [place] [address], [facility] * Procalcitonin (12/18/2024 7:59 PM CDL INSTRUCTOR) Procalcitonin 0.09 <0.50 ng/mL 12/19/2024 1:49 AM CDL INSTRUCTOR LABORATORY Comment: Interpretation and Recommendations <0.5 ng/mL: Systemic bacterial infection unlikely. Local bacterial infection is possible. 0.5-1.99 ng/mL: Systemic bacterial infection possible, but various other conditions are known to induce PCT as well. >=2.00 ng/mL: Systemic bacterial infection likely, unless other causes are known. Decision to start antibiotics should not be based on procalcitonin level alone. See Procalcitonin Guidance document for more details. [email or web address] Factors that may affect PCT levels (not [...] Unknown Venipuncture / Unknown 12/18/2024 7:59 PM CDL INSTRUCTOR 12/18/2024 8:07 PM CDL INSTRUCTOR us Darius Arriaga MD LAB - BLOOD ORDERABLES Fi nal Result [facility] Lab [address] Lab (1st floor, no room number) [address] * (ABNORMAL) INR (12/18/2024 7:59 PM CDL INSTRUCTOR) INR 1.39(H) 0.85 - 1.15 12/18/2024 8:51 PM CDL INSTRUCTOR LABORATORY Blood STRUCTURE OF RIGHT UPPER LIMB / Unknown Venipuncture / Unknown 12/18/2024 7:59 PM CDL INSTRUCTOR 12/18/2024 8:07 PM CDL INSTRUCTOR Shaheen Aggarwal MD LAB - BLOOD ORDERABLES Final Result [facility] [address] Lab (1st floor, no room number) [address] * (ABNORMAL) Comprehensive metabolic panel (12/18/2024 7:59 PM CDL INSTRUCTOR) Sodium 136 135 - 145 mmol/L 12/18/2024 8:34 PM CDL INSTRUCTOR LABORATORY Potassium 3.9 3.4 - 5.3 mmol/L 12/18/2024 8:34 PM CDL INSTRUCTOR LABORATORY Carbon Dioxide (CO2) 24 22 - 29 mmol/L 12/18/2024 8:34 PM CDL INSTRUCTOR LABORATORY Anion Gap 13 7 - 15 mmol/L 12/18/2024 8:34 PM CDL INSTRUCTOR LABORATORY Urea Nitrogen 6.6 6.0 - 20.0 mg/dL 12/18/2024 8:34 PM [facility] Creatinine 0.55 0.51 - 0.95 mg/dL 12/18/2024 8:34 PM [facility] GFR Estimate >90 >60 mL/min/1.7 3m2 12/18/2024 8:34 PM [facility] Comment:eGFR calculated usin 2020 CKD-EPI equation. Calcium 8.6(L) 8.8 - 10.4 mg/dL 12/18/2024 8:34 PM [facility] Chloride 99 98 - 107 mmol/L 12/18/2024 8:34 PM [facility] Glucose 110(H) 70 - 99 mg/dL 12/18/2024 8:34 PM [facility] Alkaline Phosphatase 374(H) 40 - 150 U/L 12/18/2024 8:34 PM [facility] AST 27 0 - 45 U/L 12/18/2024 8:34 PM [facility] ALT 40 0 - 50 U/L 12/18/2024 8:34 PM [facility] Protein Total 7.2 6.4 - 8.3 g/dL 12/18/2024 8:34 PM [facility] Albumin 3.1(L) 3.5 - 5.2 g/dL 12/18/2024 8:34 PM [facility] Bilirubin Total 0.3 <=1.2 mg/dL 12/18/2024 8:34 PM [facility] Blood STRUCTURE OF RIGHT UPPER LIMB / Unknown Venipuncture / Unknown 12/18/2024 7:59 PM CDL INSTRUCTOR 12/18/2024 8:07 PM [facility] Shaheen Aggarwal MD LAB - BLOOD ORDERABLES Final Result LABORATORY [facility] [address] [facility] (1st floor, no room number) [place] [address], [facility] * HIV Antigen Antibody Combo (03/25/2016) HIV [...] PAYABLE [address] , [address] [place] [address] Care Teams Software Testing Specialist Relationship Specialty Start Date End Date [facility], [facility] [id number] [place] [id number] [facility] General 04/15/23
[2024-12-20 23:06] LABS: Slide Review Reflex No; White Blood Count* 26.64 K/uL (4.50-11.00)
[2024-12-20 23:18] LABS: Albumin* 3.3 g/dL (3.3-5.0); Chloride* 103 mmol/L (96-114); Potassium* 3.6 mmol/L (3.6-5.1); Sodium* 137 mmol/L (135-149)
[2024-12-20 23:19] VITALS: PULSE 108; RESP 16; O2SAT 99
[2024-12-20 23:20] LABS: Creatinine* 0.6 mg/dL (0.5-1.5); Est. Creatinine Clearance* 109.78; Estimated Glomerular Filt Rate 118 ml/min
[2024-12-20 23:21] LABS: Alanine Aminotransferase* 40 U/L (4-35); Alkaline Phosphatase* 433 U/L (40-150); Anion Gap 8 mEq/L (7-15); Aspartate Amino Transferase* 44 U/L (12-35); Bilirubin Total* 0.3 mg/dL (0.1-1.5); Blood Urea Nitrogen* 6 mg/dL (5-24); Carbon Dioxide* 26 mmol/L (20-32); Glucose* 110 mg/dL (60-115); Total Protein* 7.2 g/dL (6.0-8.3)
[2024-12-20 23:22] LABS: Calcium* 8.6 mg/dL (8.4-10.6)
[2024-12-20 23:30] VITALS: PULSE 102; RESP 16; O2SAT 99
[2024-12-20 23:38] LABS: Procalcitonin* 0.14 ng/mL (<0.50)
[2024-12-20 23:45] VITALS: PULSE 110; RESP 16; O2SAT 99
== END 2024-12-21 00:06 | disposition home or self-care (01) ==
PROVIDERS: Emergency Provider Family Medicine
DX: C20 Malignant neoplasm of rectum (principal); K62.5 Hemorrhage of anus and rectum
CPT/HCPCS: 36415; 80053; 83605; 84145; 85025; 86850; 86900; 86901; 94761; 99283; 99284

== ENCOUNTER 2024-12-31 09:33 | Outpatient (RCR) | payer MEDICAID, SELFPAY ==
[2024-12-31 12:13] VITALS: BP 103/57; PULSE 95; RESP 14; TEMP 37.2; O2SAT 95
[2024-12-31 12:27] VITALS: BP 90/48; PULSE 86; RESP 14; TEMP 37.2; O2SAT 95
[2024-12-31 13:00] VITALS: BP 94/55; PULSE 92; RESP 18; TEMP 37.4; O2SAT 97
[2024-12-31 13:04] VITALS: BP 97/61; PULSE 91; RESP 18; TEMP 37.1; O2SAT 96
[2024-12-31 14:13] VITALS: BP 94/58; PULSE 97; RESP 14; TEMP 37.3; O2SAT 97
[2024-12-31 14:53] VITALS: BP 88/58; PULSE 102; RESP 16; TEMP 37.2; O2SAT 100
== END 2025-06-29 23:59 | disposition home or self-care (01) ==
LOC: CCIC 09:33
PROVIDERS: Visit Provider Clinical Nurse Specialist
DX: D64.9 Anemia, unspecified (principal); C20 Malignant neoplasm of rectum
CPT/HCPCS: 36415; 36430; 86850; 86900; 86901; 86922; P9016